=== PATIENT | male | born 1955 | race African-American/Black ===

== ENCOUNTER 2021-12-01 08:20 | Day surgery (SDC) | payer MEDICAID, SELFPAY ==
[2021-12-01] VITALS (10 sets, daily range): BP systolic 63–112; BP diastolic 47–68; PULSE 84–107; RESP 18–22; TEMP 36.3–36.4; O2SAT 94–98; BMI 36.0
[2021-12-01 09:01] LABS: Bedside Glucose 164 mg/dL (74-106)
--- NOTE | 2021-12-01 09:39 | H&P.OPEN ---
HPI - General HPI Narrative TRACI LIMON, is a 66 M who presents for screening colonoscopy. He says his last colonoscopy was about 15 years ago and he does believe that they found polyps. He denies any abdominal pain or blood in the stool. He denies family history of colon cancer. [facility] Medical History Colon polyps Diabetes High cholesterol Hypertension Injury of head and neck Insulin dependent diabetes mellitus Mixed hyperlipidemia Wears glasses Home Medications aspirin 81 mg chewable tablet 81 mg PO DAILY 10/19/21 [History Last Taken 11/28/21] atorvastatin 10 mg tablet 10 mg PO QHS 10/19/21 [History Last Taken Unknown] insulin aspar prt-insulin aspart 100 unit/mL (70-30) subcutaneous soln (Novolog Mix 70-30 U-100 Insuln) 1 sliding scale dose subcut USEASDIRECTD 10/19/21 [History Last Taken Unknown] insulin glargine 100 unit/mL (3 mL) subcutaneous pen (Basaglar KwikPen U-100 Insulin) 66 unit subcut 0800 10/19/21 [History Last Taken 12/01/21] metformin 500 mg tablet 1,000 mg PO BID 10/19/21 [History Last Taken Unknown] ferrous sulfate 325 mg (65 mg iron) tablet 325 mg PO DAILY 11/28/21 [History Last Taken Unknown] lisinopril 20 mg-hydrochlorothiazide 25 mg tablet 1 tab PO DAILY 11/28/21 [History Last Taken 12/01/21] Allergy/AdvReac Type Severity Reaction Status Date / Time No Known Allergies Allergy Verified 12/01/21 08:49 Surgical History Hx of colonoscopy Hx of surgical procedure Hx of tonsillectomy Hx of total knee replacement Social History Smoking Status: Never smoker Past Medical/Surgical History Planned Operation Planned Operative Procedure/s: COLONOSCOPY Previous Hospitalizations/Surgeries HX Hospitalizations: No Any Problems With Anesthesia: No You/Your Family Experience Fever (Hyperthermia) With Anes: No Cholinesterase deficiency: No Cardiovascular Hx Hypertension: Yes (CONTROLLED ON MED) Respiratory Hx Sleep Apnea: No Hx Respiratory Tract Infection/Cold (presently): No Do You Snore Loudly (louder than talking or can be heard): Yes Do You Often Feel Tired/ Fatigued/ Sleepy Dring Daytime?: No Has Anyone Observed You Stop Breathing During Sleep?: No Result (for STOP score): Positive Smoking Status: Never smoker Neurological Does patient have nerve stimulator: No Miscellaneous Recent Exposure to Contagious Disease: No Allergies No Known Allergies Allergy (Verified 12/01/21 08:49) Discharge Is Pt Admitted From a Long Term, or a Retirement: No After D/C, Where Do you Plan to Go: Return Home Vital Signs Vital Signs Vital Signs: 12/01/21 08:50 12/01/21 08:50 Temperature 97.5 F L Temperature Source Temporal Pulse Rate 107 H Respiratory Rate 18 Respiratory Pattern Normal Blood Pressure 112/63 Blood Pressure Mean 79 Blood Pressure Source Monitor Blood Pressure Position Semi-Fowlers Blood Pressure Location Right Arm Pulse Ox 96 Oxygen Delivery Method Room Air Weight Weight: 251 lb 5.231 oz Body Mass Index (BMI) 36.0 Physical Exam Const alert and oriented x3 Resp normal respiratory effort and normal air movement Cardio regular rate and regular rhythm GI soft to palpation, non-tender and non-distended Assessment & Plan Assessment/Plan (1) Encounter for screening for malignant neoplasm of colon: PLAN: Plan I explained endoscopy in detail to the patient. I explained the risks including but not limited to stroke or heart attack with anesthesia, perforation of the GI tract, bleeding, infection. I explained that any of these could necessitate further emergency surgery. The patient understands and all questions were answered sufficiently. The patient wishes to proceed with procedure. Morgan Wolf MD Pager: [facility] [address] [place] [address], [address] [place] [address] Office: Surgery Risks - Colonoscopy Risks Include but are not Limited To: Risks include but are not limited to: Bleeding, perforation requiring further surgery, inability to complete colonoscopy requiring barium enema.
--- NOTE | 2021-12-01 10:05 | OP.COLON_ITS ---
Patient Name: Slyvester Inman Procedure Date: 12/01/2021 9:42 AM Date of : 1955 Age: 66 Procedure: Colonoscopy Indications: Screening for colorectal malignant neoplasm Providers: Morgan Wolf MD Medicines: Monitored Anesthesia Care Patient Profile: This is a 66 year old male. Refer to note in patient chart for documentation of history and physical. Last Colonoscopy: more than 10 years ago. Complications: No immediate complications. Procedure: Pre-Anesthesia Assessment: - Prior to the procedure, a History and Physical was performed, and patient medications and allergies were reviewed. The patient's tolerance of previous anesthesia was also reviewed. The risks and benefits of the procedure and the sedation options and risks were discussed with the patient. All questions were answered, and informed consent was obtained. Prior Anticoagulants: The patient has taken no previous anticoagulant or antiplatelet agents. After reviewing the risks and benefits, the patient was deemed in satisfactory condition to undergo the procedure. After I obtained informed consent, the scope was passed under direct vision. Throughout the procedure, the patient's blood pressure, pulse, and oxygen saturations were monitored continuously. The Colonoscope was introduced through the anus and advanced to the cecum, identified by appendiceal orifice and ileocecal valve. The colonoscopy was performed without difficulty. The patient tolerated the procedure well. The quality of the bowel preparation was good. Scope In: 9:50:59 AM Scope Withdrawal Time 0 hours 6 minutes 4 seconds Scope Out: 10:03:36 AM Total Procedure Duration Time 0 hours 12 minutes 37 seconds Findings: The entire examined colon appeared normal on direct and retroflexion views. Impression: - The entire examined colon is normal on direct and retroflexion views. - No specimens collected. Recommendation: - Discharge patient to home. - Resume previous diet. - Continue present medications. - Repeat colonoscopy in 10 years for screening purposes. Procedure Code(s): --- Professional --- 01441, Colonoscopy, flexible; diagnostic, including collection of specimen(s) by brushing or washing, when performed (separate procedure) Diagnosis Code(s): --- Professional --- Z12.11, Encounter for screening for malignant neoplasm of colon CPT copyright 2017 [employer] [place] [employer]. All rights reserved. The codes documented in this report are preliminary and upon auto machinist review may be revised to meet current compliance requirements. Morgan Wolf MD 12/01/2021 10:05:15 AM This report has been signed electronically. Number of Addenda: 0 Note Initiated On: 12/01/2021 9:42 AM
== END 2021-12-01 11:37 | disposition home or self-care (01) ==
LOC: EN 08:28 → AC 08:30
PROVIDERS: Visit Provider Surgery
PROC: 0DJD8ZZ Inspection of Lower Intestinal Tract, Via Natural or Artificial Opening Endoscopic (ICD-10-PCS; CPT 45378; principal; 2021-12-01 09:25)
DX: Z12.11 Encounter for screening for malignant neoplasm of colon (principal); E11.9 Type 2 diabetes mellitus without complications; I10 Essential (primary) hypertension; E78.2 Mixed hyperlipidemia; Z79.4 Long term (current) use of insulin; Z79.82 Long term (current) use of aspirin; Z79.899 Other long term (current) drug therapy
CPT/HCPCS: 45378; 82962; J7120; J2405

== ENCOUNTER 2023-11-19 10:56 | Emergency (ER) | payer MEDICARE, SELFPAY ==
[2023-11-19 10:57] VITALS: BP 156/83; PULSE 153; RESP 26; TEMP 35.8; O2SAT 98
--- NOTE | 2023-11-19 11:06 | EKG12_ITS ---
Test Reason : RESP ILLNESS Blood Pressure : / mmHG Vent. Rate : 128 BPM Atrial Rate : 128 BPM P-R Int : 152 ms QRS Dur : 072 ms QT Int : 300 ms P-R-T Axes : 065 053 014 degrees QTc Int : 438 ms Sinus tachycardia Nonspecific T wave abnormality Abnormal ECG Confirmed by Mayito Benites ([id number]), script editor SOPHY LEAVITT ([id number]) on 11/20/2023 2:52:39 PM Referred By: Confirmed By:Mayito Benites
--- NOTE | 2023-11-19 11:07 | EX.ED.DYSGE1 ---
HPI History of Present Illness Chief Complaint: General Illness Detail of Chief Complaint: Not feeling well for 4 days Narrative Narrative: Patient presents the emergency department complaint not feeling well for the last 4 days. Patient states that he just got back from [place] 4 days ago. He woke up the next morning with a scratchy throat and a cough. He has had sweats. He has been somewhat lightheaded and dizzy. Cough at times productive of some yellow phlegm. He denies chest pain. Has had some intermittent shortness of breath. Patient is a diabetic but states his blood sugars have been good and his last check was today and it was 117. [facility] Medical History (Updated 11/19/23 @ 12:[address] Matthew German, DO) Wears glasses Diabetes Insulin dependent diabetes mellitus High cholesterol Injury of head and neck Colon polyps Mixed hyperlipidemia Hypertension Home Medications ?Medication ?Instructions ?Recorded ?Last Taken ?Type aspirin 81 mg chewable tablet 81 mg PO DAILY 10/19/21 11/28/21 History atorvastatin 10 mg tablet 10 mg PO QHS 10/19/21 Unknown History insulin aspar prt-insulin aspart 1 sliding scale dose subcut 10/19/21 Unknown History 100 unit/mL (70-30) subcutaneous USEASDIRECTD soln (Novolog Mix 70-30 U-100 Insuln) insulin glargine 100 unit/mL (3 66 unit subcut 0800 10/19/21 12/01/21 History mL) subcutaneous pen (Basaglar KwikPen U-100 Insulin) metformin 500 mg tablet 1,000 mg PO BID 10/19/21 Unknown History ferrous sulfate 325 mg (65 mg 325 mg PO DAILY 11/28/21 Unknown History iron) tablet lisinopril 20 1 tab PO DAILY 11/28/21 12/01/21 History mg-hydrochlorothiazide 25 mg tablet semaglutide 1 mg/dose (4 mg/3 mL) 1 mg subcut QWEEK 11/19/23 Unknown History subcutaneous pen injector (Ozempic) Allergy/AdvReac Type Severity Reaction Status Date / Time No Known Allergies Allergy Verified 12/01/21 08:49 Surgical History Hx of colonoscopy Hx of surgical procedure Hx of total knee replacement Hx of tonsillectomy Social History Smoking Status: Never smoker ROS ROS ED Review of Systems ROS Unobtainable: other Constitutional Constitutional ED: Reports lethargy; Denies chills, fever(s), sweats or weight loss Eyes Eyes: Denies blurry vision, change in vision or diplopia ENT ENT ED: Reports sore throat; Denies rhinorrhea Cardiovascular Cardiovascular: Reports racing heartbeat; Denies chest pain or orthopnea Respiratory/Chest Respiratory/Chest: Reports cough, dyspnea, dyspnea on exertion and sputum; Denies orthopnea Gastrointestinal Gastrointestinal: Denies abdominal pain, diarrhea, nausea or vomiting Genitourinary Genitourinary ED: Denies dysuria, hematuria or urinary frequency Musculoskeletal Musculoskeletal: Denies arthralgias, back pain, myalgias or neck pain Integumentary Denies abscess, Abrasions or rash Neurologic Neurologic: Denies headache(s) or weakness Psychiatric Psychiatric: Denies anxiety, depression or suicidal thoughts Endocrine Endocrinology: Denies polydipsia, polyphagia or polyuria Hematologic/Lymphatic Hematologic/Lymphatic: Denies easy bleeding, easy bruising or lymphadenopathy Allergic/Immunologic Allergic/Immunologic ED: Denies mouth swelling, tongue swelling or urticaria EXAM Physical Exam Const Vital Signs: 11/19/23 10:57 11/19/23 11:42 11/19/23 12:25 Temperature 96.4 F L Temperature Source Temporal Pulse Rate 153 H 130 H Respiratory Rate 26 H 16 Respiratory Effort Normal Non-Labored Respiratory Pattern Normal Normal Blood Pressure 156/83 H Blood Pressure Mean 107 Pulse Ox 98 Oxygen Delivery Method Room Air Positive well nourished and well developed General Appearance ED: well developed and NAD HEENT Reports TM's clear and moist mucous membranes normocephalic and atraumatic; Negative for trauma or tenderness Tympanic Membrane ED: Yes TM's clear Eyes PERRL and EOMs intact bilaterally General Eye ED: Negative for pale conjunctiva or scleral icterus Neck no lymphadenopathy, supple and no JVD General: Negative for tenderness Chest Wall inspection of chest normal and palpation of chest normal Chest: Negative for tenderness Resp normal respiratory effort and clear to auscultation bilaterally Effort and Inspection: Negative for respiratory distress or pain with movement Auscultation: Negative for rhonchi, wheezes or diminished lung sounds Cardio regular rate, regular rhythm, S1 normal heart sound, S2 normal heart sound and no murmurs Peripheral Pulses: pulses 2+ throughout GI normal to inspection, nondistended, normoactive bowel sounds, soft to palpation, non-tender, non-distended and no masses Back/Spine no CVA tenderness and no thoracic nor lumbar tenderness Extremity normal to inspection General Extremety ED: Negative for edema General Extremity: Negative for edema Neuro oriented x3, CN's II-XII intact bilaterally, no sensory deficits noted and gait normal Sensorium / Orientation: awake, alert, oriented to person, oriented to place and oriented to time Motor Exam: strength 5/5 throughout and strength abnormal Psych mental status grossly normal Skin no rashes or lesions noted and no wounds MDM MDM MDM Narrative Medical decision making narrative: Patient presents with cough and not feeling well for about 4 days. Woke up with sore throat initially. Patient just traveled back from [place]. In the differential would be a viral URI versus pneumonia versus PE. CBC with differential count 7.4 with hemoglobin 12.8 and platelet count of 269. Chemistries unremarkable. BUN was 11 and creatinine 1.09. Troponin was normal at 4 and lactate was 2.0. 1 view chest x-ray unremarkable. COVID flu and RSV testing was undertaken and he was positive for COVID-19. D-dimer was normal. We discussed treatment possibly with Paxlovid however he has had symptoms for close to 5 days and clinically looks well. Discussed risk-benefit and we are opting against treatment with Paxlovid at this time. Lab Data Attestation: I reviewed the patient's lab results. Labs: Laboratory Results - last 24 hr 11/19/23 11:25 WBC 7.4 RBC 4.09 L Hgb 12.8 L Hct 37.8 L MCV 92.4 MCH 31.3 MCHC 33.9 RDW Std Deviation 41.9 RDW Coeff of Maria Isabel 12.6 Plt Count 269 MPV 9.4 Immature Gran % (Auto) 0.400 Neut % (Auto) 66.5 Lymph % (Auto) 16.3 L [place] % (Auto) 16.3 H Eos % (Auto) 0.1 Baso % (Auto) 0.4 Absolute Neuts (auto) 4.9 Absolute Lymphs (auto) 1.20 Nucleated RBC % 0 D-Dimer Quant (PE/DVT) < 0.27 L Sodium 135 L Potassium 3.3 L Chloride 104 Carbon Dioxide 23.0 Anion Gap 8 BUN 11 Creatinine 1.09 Est GFR (MDRD) Af Amer 87 Est GFR (MDRD) Non-Af 72 BUN/Creatinine Ratio 10.1 Glucose 116 H Lactic Acid 2.0 Calcium 9.3 Troponin I High Sens 4 Radiography Diagnostic Testing: Clinical Impression(s) from Imaging Studies Chest X-Ray 11/19/23 11:46 IMPRESSION: Normal x-ray examination of the chest. Electronically Signed: Ifeanyi Allan MD at 12:16 EDT , Discharge Plan Triage Chief Complaint: General Illness ED Provider: Matthew German Dx/Rx/DC Orders Clinical Impression: COVID-19 Instructions: Caring for Someone Who Has COVID-19 Prescriptions: No Action atorvastatin 10 mg tablet 10 mg PO QHS metformin 500 mg tablet 1,000 mg PO BID aspirin 81 mg tablet,chewable 81 mg PO DAILY insulin asp prt-insulin aspart [Novolog Mix 70-30 U-100 Insuln] 100 unit/mL (70-30) solution 1 sliding scale dose subcut USEASDIRECTD Basaglar KwikPen U-100 Insulin 100 unit/mL (3 mL) insulin pen 66 unit subcut 0800 ferrous sulfate 325 mg (65 mg iron) tablet 325 mg PO DAILY Patient Comments: PLEASE SEE ATTACHED FOR DETAILED DIRECTIONS lisinopril-hydrochlorothiazide 20-25 mg tablet 1 tab PO DAILY Patient Comments: TAKE 1 TABLET BY MOUTH EVERY DAY Ozempic 1 mg/dose (4 mg/3 mL) pen injector 1 mg subcut QWEEK Primary Care Provider: Care Physician,No Primary Referrals: Morgan Sawyer MD [Med Staff - Customer Development Representative] - 5-7 Days Care Physician,No Primary [Primary Care Provider] - Print Language: [place]i Disposition Disposition: Home, Self Care
--- NOTE | 2023-11-19 11:46 | RAD_ITS ---
STUDY: X-RAY CHEST REASON FOR EXAM: Male, 68 years old. cough, dyspnea TECHNIQUE: Single AP portable view of the chest. COMPARISON: None. FINDINGS: EKG electrodes are seen. The lungs are clear and expanded. There is no demonstrated pleural abnormality. Normal size heart. Normal mediastinum and santi. Normal visualized pulmonary arteries. Normal visualized aortic arch and descending thoracic aorta. There are diffuse degenerative changes of the visualized thoracic spine. Normal visualized ribs, clavicles, and shoulders. There is no demonstrated abnormality of the visualized soft tissue structures of the upper abdomen. RAD/Chest 1 View (Portable) IMPRESSION: Normal x-ray examination of the chest. Electronically Signed: Ifeanyi Allan MD at 12:16 EDT ,
[2023-11-19 11:54] LABS: Absolute Neutrophil Count 4.9 X10^3/uL (2.0-7.7); Basophil# 0.03 X10^3/uL; Basophil% 0.4 % (0-1); Eosinophil# 0.01 X10^3/uL; Eosinophils% 0.1 % (0-5); Hematocrit 37.8 % (40-54); Hemoglobin 12.8 g/dL (13.0-16.5); Lymphocyte % 16.3 % (19-41); Mean Corp Hgb Conc 33.9 g/dL (32-36); Mean Corpuscular Hgb 31.3 pg (27.0-32.0); Mean Corpuscular Volume 92.4 fL (80-94); Mean Platelet Vol. 9.4 fl (6.2-12.0); Monocyte% 16.3 % (0-10); NRBC Flagged by Analyzer 0 % (0-5); Neutrophil # 4.88 X10^3/uL (2.7-7.7); Neutrophil % 66.5 % (47-70); Platelet Count 269 K/mm3 (150-450); RBC Distribution Width CV 12.6 % (11.6-14.6); RBC Distribution Width SD 41.9 fl (35.1-43.9); Red Blood Count 4.09 M/mm3 (4.6-6.2); White Blood Count 7.4 K/mm3 (4.4-11.0)
[2023-11-19 12:12] LABS: Anion Gap 8 (5-15); BUN 11 mg/dL (7-18); BUN/Creat Ratio 10.1 RATIO (10-20); Calcium,Total 9.3 mg/dL (8.5-10.1); Chloride 104 mmol/L (98-107); Creatinine, Serum 1.09 mg/dL (0.70-1.30); EST Glomerular Filtration Rate 72 mL/min (>60); Est Glom Filt Rate - Afr Amer 87 mL/min (>60); Glucose 116 mg/dL (74-106); Potassium 3.3 mmol/L (3.5-5.1); Sodium Level 135 mmol/L (136-145); Troponin-I HS 4 pg/mL (3.0-78.0)
[2023-11-19] MEDS: 0.9% Normal Saline (1000mL) 1,000 ML 150 ML IV (12:17)
[2023-11-19] MEDS: Ipratropium/Albuterol Sulfate 3 ML AMPUL.NEB INHALATION (12:22)
[2023-11-19 12:25] VITALS: PULSE 130; RESP 16
[2023-11-19 12:39] LABS: D-Dimer Quantitative (DVT/PE) < 0.27 FEU/ug/m (0.27-0.49)
[2023-11-19 12:56] VITALS: BP 137/72; PULSE 122; RESP 19; O2SAT 91
[2023-11-19 12:57] VITALS: BP 133/84; PULSE 123; RESP 19; TEMP 36.8; O2SAT 91
[2023-11-19 16:00] LABS: Reflex Lactate? Y
== END 2023-11-19 13:06 | disposition home or self-care (01) ==
PROVIDERS: Emergency Provider Emergency Medicine; Visit Provider Emergency Medicine
DX: U07.1 COVID-19 (principal); Z79.4 Long term (current) use of insulin; E11.9 Type 2 diabetes mellitus without complications
CPT/HCPCS: 71045; 80048; 83605; 84484; 85025; 85379; 87040; 87631; 93005; 94640; 94664; 96360; 99283; J7030; A4216

== ENCOUNTER 2024-02-12 16:19 | Emergency (ER) | payer MEDICARE, SELFPAY ==
[2024-02-12 16:20] VITALS: BP 117/93; PULSE 106; RESP 20; TEMP 36; O2SAT 96; BMI 35.8
[2024-02-12 16:22] VITALS: BP 162/98; PULSE 78; RESP 16; TEMP 36.8; O2SAT 98
[2024-02-12 17:22] VITALS: BP 161/92; PULSE 78; RESP 16; TEMP 36.8; O2SAT 98
--- NOTE | 2024-02-12 17:24 | EX.ED.GUMALE ---
HPI History of Present Illness Chief Complaint: Male Pain/Injury Informant: patient Pain Onset: Days (3) Context: Gradual Onset Timing: Continuous Worsened by: Palpation Relieved by: Nothing Narrative Narrative: Patient presents with pain and swelling to his glans penis that has been getting worse over the last 3 days. Patient states it is gradually getting worse. Patient describes his pain as sharp. Patient states he had noted some white discharge and drainage over the glans penis. Patient denies any difficulty retracting his foreskin or reducing his foreskin. However, patient states that due to the swelling of his glans penis his foreskin does not completely cover his glans penis. Patient admits to some dysuria but denies any hematuria or frequency. Patient denies any fevers or chills. Patient is diabetic. Prior similar symptoms: No PFSH PFSH Medical History Wears glasses Diabetes Insulin dependent diabetes mellitus High cholesterol Injury of head and neck Colon polyps Mixed hyperlipidemia Hypertension Home Medications ?Medication ?Instructions ?Recorded ?Last Taken ?Type aspirin 81 mg chewable tablet 81 mg PO DAILY 10/19/21 11/28/21 History atorvastatin 10 mg tablet 10 mg PO QHS 10/19/21 Unknown History insulin aspar prt-insulin aspart 1 sliding scale dose subcut 10/19/21 Unknown History 100 unit/mL (70-30) subcutaneous USEASDIRECTD soln (Novolog Mix 70-30 U-100 Insuln) insulin glargine 100 unit/mL (3 66 unit subcut 0800 10/19/21 12/01/21 History mL) subcutaneous pen (Basaglar KwikPen U-100 Insulin) metformin 500 mg tablet 1,000 mg PO BID 10/19/21 Unknown History ferrous sulfate 325 mg (65 mg 325 mg PO DAILY 11/28/21 Unknown History iron) tablet lisinopril 20 1 tab PO DAILY 11/28/21 12/01/21 History mg-hydrochlorothiazide 25 mg tablet semaglutide 1 mg/dose (4 mg/3 mL) 1 mg subcut QWEEK 11/19/23 Unknown History subcutaneous pen injector (Ozempic) clotrimazole 1 % topical cream 1 applic topical BID #15 grams 02/12/24 Unknown Rx Allergy/AdvReac Type Severity Reaction Status Date / Time No Known Allergies Allergy Verified 12/01/21 08:49 Surgical History Hx of colonoscopy Hx of surgical procedure Hx of total knee replacement Hx of tonsillectomy Social History Smoking Status: Never smoker ROS ROS ED Constitutional Constitutional ED: Denies chills or fever(s) Eyes Eyes: Denies blurry vision or change in vision ENT ENT ED: Denies rhinorrhea or sore throat Cardiovascular Cardiovascular: Denies chest pain or palpitations Respiratory/Chest Respiratory/Chest: Denies cough or dyspnea Gastrointestinal Gastrointestinal: Denies nausea or vomiting Genitourinary Genitourinary ED: Reports dysuria; Denies hematuria Musculoskeletal Musculoskeletal: Denies back pain or neck pain Integumentary Denies abscess or rash Neurologic Neurologic: Denies headache(s) or weakness Allergic/Immunologic Allergic/Immunologic ED: Denies mouth swelling or urticaria EXAM Physical Exam Const Vital Signs: 02/12/24 16:20 02/12/24 16:22 02/12/24 17:22 Temperature 96.8 F L 98.3 F 98.3 F Temperature Source Temporal Oral Oral Pulse Rate 106 H 78 78 Respiratory Rate 20 H 16 16 Blood Pressure 117/93 H 162/98 H 161/92 H Blood Pressure Mean 101 119 115 Pulse Ox 96 98 98 Oxygen Delivery Method Room Air Room Air Room Air 02/12/24 18:20 Temperature Temperature Source Pulse Rate 91 Respiratory Rate 16 Blood Pressure 140/83 H Blood Pressure Mean 102 Pulse Ox 97 Oxygen Delivery Method Room Air Positive well nourished and well developed General Appearance ED: well developed and NAD HEENT Reports moist mucous membranes Neck supple and no JVD Resp normal respiratory effort and clear to auscultation bilaterally Cardio regular rate and regular rhythm GI non-tender and non-distended Palpation: soft Narrative: There is edema and white drainage over the glans penis. There is a paraphimosis noted. There is mild tenderness to palpation. There are no ulcerations noted. There is no urethral discharge noted. Extremity normal to inspection Neuro oriented x3, CN's II-XII intact bilaterally, moves all extremities, no focal motor deficits and no sensory deficits noted Sensorium / Orientation: alert Motor Exam: strength 5/5 throughout Psych mental status grossly normal MDM MDM MDM Narrative Medical decision making narrative: Differential diagnosis includes balanitis, balanoposthitis, paraphimosis, and urinary tract infection. Urinalysis will be obtained to assess for urinary tract infection. Lab Data Attestation: I reviewed the patient's lab results. Lab results narrative: Urinalysis was reviewed. Leukocyte esterase was 500. There were 5-10 white blood cells and 2+ bacteria. Occult blood was 150 with 5-10 red blood cells. Labs: Laboratory Results - last 24 hr 02/12/24 17:17 Urine Color Yellow Urine Clarity Clear Urine pH 5.0 Ur Specific [place] 1.025 Urine Protein 30 H Urine Glucose (UA) 50 H Urine Ketones Negative Urine Occult Blood 150 H Urine Nitrite Negative Urine Bilirubin Negative Urine Urobilinogen 1 H Ur Leukocyte Esterase 500 H Urine RBC 5-10 SEEN Urine WBC 5-10 SEEN Ur Squamous Epith Cells 0-5 SEEN Calcium Oxalate Crystal RARE Urine Bacteria 2+ Hyaline Casts 0-5 SEEN Urine Mucus 1+ Treatment and Re-Evaluation Narrative: The paraphimosis was able to be reduced. Patient was advised that this is most likely a fungal infection of his glans penis. Patient was given prescription for clotrimazole cream. Patient was instructed to apply this twice daily. Patient was instructed to keep the glans clean. Patient was given a referral for urology. Patient understood and was agreeable with the plan. All questions were answered. Discharge Plan Triage Chief Complaint: Male Pain/Injury ED Provider: Morgan Pérez Dx/Rx/DC Orders Clinical Impression: Balanoposthitis, Paraphimosis, Diabetes mellitus Instructions: ED Balanoposthitis Prescriptions: New clotrimazole 1 % cream 1 applic topical BID Qty: 15 0RF No Action atorvastatin 10 mg tablet 10 mg PO QHS metformin 500 mg tablet 1,000 mg PO BID aspirin 81 mg tablet,chewable 81 mg PO DAILY insulin asp prt-insulin aspart [Novolog Mix 70-30 U-100 Insuln] 100 unit/mL (70-30) solution 1 sliding scale dose subcut USEASDIRECTD Basaglar KwikPen U-100 Insulin 100 unit/mL (3 mL) insulin pen 66 unit subcut 0800 ferrous sulfate 325 mg (65 mg iron) tablet 325 mg PO DAILY Patient Comments: PLEASE SEE ATTACHED FOR DETAILED DIRECTIONS lisinopril-hydrochlorothiazide 20-25 mg tablet 1 tab PO DAILY Patient Comments: TAKE 1 TABLET BY MOUTH EVERY DAY Ozempic 1 mg/dose (4 mg/3 mL) pen injector 1 mg subcut QWEEK Primary Care Provider: Care Physician,No Primary Referrals: David Braun MD [Med Staff - Active Staff] - 3-5 Days Care Physician,No Primary [Primary Care Provider] - Print Language: Luxembourgish Disposition Disposition: Home, Self Care
[2024-02-12 17:56] LABS: Color, Urine Yellow (Yellow); Glucose, Dipstick 50 mg/dl (Normal); Ketone-Dipstick Negative (Negative); Leukocyte Esterase-Dipstick 500 /ul (Negative); Nitrite-Dipstick Negative (Negative); Occult Blood-Urine 150 /ul (Negative); Protein-Dipstick 30 mg/dl (Negative); Specific Gravity, Urine 1.025 (1.002-1.030); Urine Bilirubin Dipstick Negative (Negative); Urine Clarity Clear (Clear); Urine Urobilinogen 1 mg/dl (Normal)
[2024-02-12 18:20] VITALS: BP 140/83; PULSE 91; RESP 16; O2SAT 97
[2024-02-12 18:29] LABS: Hyaline Cast 0-5 SEEN /lpf (0-5); Squamous Epithelial Cells - UA 0-5 SEEN /hpf (0-5); White Blood Cells 5-10 SEEN /hpf (0-5)
[2024-02-12 18:30] LABS: Red Blood Cells-Urine 5-10 SEEN /hpf (0-5)
[2024-02-12 18:31] LABS: Bacteria 2+ /hpf (None Seen); Calcium Oxalate Crystals Ur RARE /hpf (<or=2+); Mucous, Urine 1+ /hpf (<or=2+)
[2024-02-12 19:47] VITALS: BP 140/79; PULSE 78; RESP 16; TEMP 36.1; O2SAT 99
== END 2024-02-12 19:54 | disposition home or self-care (01) ==
PROVIDERS: Emergency Provider Emergency Medicine; Visit Provider Emergency Medicine
DX: N47.6 Balanoposthitis (principal); E11.9 Type 2 diabetes mellitus without complications; Z79.4 Long term (current) use of insulin; N47.2 Paraphimosis; Z79.84 Long term (current) use of oral hypoglycemic drugs; E78.00 Pure hypercholesterolemia, unspecified; I10 Essential (primary) hypertension; Z79.82 Long term (current) use of aspirin; Z79.899 Other long term (current) drug therapy; Z79.85 Long-term (current) use of injectable non-insulin antidiabetic drugs
CPT/HCPCS: 81001; 87077; 87086; 87088; 87186; 99282

== ENCOUNTER 2024-09-18 21:03 | Emergency (ER) | payer MEDICARE, SELFPAY ==
[2024-09-18] VITALS (8 sets, daily range): BP systolic 122–141; BP diastolic 70–90; PULSE 92–101; RESP 16–20; TEMP 36.6–36.8; O2SAT 96–98; BMI 35.0
[2024-09-18] MEDS: 0.9% Normal Saline (1000mL) 1,000 ML 999 ML IV (21:44)
[2024-09-18 21:50] LABS: Bacteria 0 SEEN /hpf (None Seen); Mucous, Urine 0 SEEN /hpf (<or=2+)
[2024-09-18 21:54] LABS: Absolute Lymphocyte Count 4.25 X10^3/uL (0.83-4.51); Basophil# 0.05 X10^3/uL; Basophil% 0.6 % (0-1); Eosinophil# 0.06 X10^3/uL; Eosinophils% 0.7 % (0-5); Hematocrit 37.9 % (40-54); Hemoglobin 13.4 g/dL (13.0-16.5); Lymphocyte # 4.25 X10^3/ul (0.83-4.51); Lymphocyte % 51.9 % (19-41); Mean Corp Hgb Conc 35.4 g/dL (32-36); Mean Corpuscular Hgb 31.8 pg (27.0-32.0); Mean Corpuscular Volume 89.8 fL (80-94); Mean Platelet Vol. 9.6 fl (6.2-12.0); Monocyte# 0.77 X10^3/uL; Monocyte% 9.4 % (0-10); NRBC Flagged by Analyzer 0 % (0-5); Neutrophil # 3.02 X10^3/uL (2.7-7.7); Neutrophil % 36.9 % (47-70); Platelet Count 287 K/mm3 (150-450); RBC Distribution Width CV 12.7 % (11.6-14.6); RBC Distribution Width SD 41.7 fl (35.1-43.9); Red Blood Count 4.22 M/mm3 (4.6-6.2); White Blood Count 8.2 K/mm3 (4.4-11.0)
[2024-09-18 21:57] LABS: Color, Urine Yellow (Yellow); Glucose, Dipstick 1000 mg/dl (Normal); Ketone-Dipstick 5 mg/dl (Negative); Leukocyte Esterase-Dipstick 25 /ul (Negative); Nitrite-Dipstick Negative (Negative); Occult Blood-Urine 10 /ul (Negative); Protein-Dipstick 100 mg/dl (Negative); Urine Bilirubin Dipstick Negative (Negative); Urine Clarity Sl. Cloudy (Clear); Urine Urobilinogen Normal (Normal)
--- NOTE | 2024-09-18 22:06 | EX.ED.DYSGE1 ---
HPI History of Present Illness Chief Complaint: General Illness Informant: patient and EMS Narrative Narrative: 69-year-old male diabetic states he has been having sore cramping in his muscles all over his body and his back over the past hour. Presents by EMS. He states although he is a diabetic, he has not been checking his sugars in the past couple months because his meter broke and he has not had a wireless sensor until today. He put the wireless sensor on and noticed that his blood sugar was reading high. Therefore he states he took a dose of corrective insulin, little later his blood sugar came down to the 385 range and then later the 240 range and he thought he was doing better until he started cramping all over. He states the cramping is not so bad right now. Denies any abdominal discomfort vomiting diarrhea cough, dyspnea, chest pain, recent illness otherwise. He states he has had polyuria polydipsia for the past 3 days or so. [facility] Medical History Wears glasses Diabetes Insulin dependent diabetes mellitus High cholesterol Injury of head and neck Colon polyps Mixed hyperlipidemia Hypertension Home Medications ?Medication ?Instructions ?Recorded ?Last Taken ?Type aspirin 81 mg chewable tablet 81 mg PO DAILY 10/19/21 11/28/21 History atorvastatin 10 mg tablet 10 mg PO QHS 10/19/21 Unknown History insulin aspar prt-insulin aspart 1 sliding scale dose subcut 10/19/21 Unknown History 100 unit/mL (70-30) subcutaneous USEASDIRECTD soln (Novolog Mix 70-30 U-100 Insuln) insulin glargine 100 unit/mL (3 66 unit subcut 0800 10/19/21 12/01/21 History mL) subcutaneous pen (Basaglar KwikPen U-100 Insulin) metformin 500 mg tablet 1,000 mg PO BID 10/19/21 Unknown History ferrous sulfate 325 mg (65 mg 325 mg PO DAILY 11/28/21 Unknown History iron) tablet lisinopril 20 1 tab PO DAILY 11/28/21 12/01/21 History mg-hydrochlorothiazide 25 mg tablet semaglutide 1 mg/dose (4 mg/3 mL) 1 mg subcut QWEEK 11/19/23 Unknown History subcutaneous pen injector (Ozempic) clotrimazole 1 % topical cream 1 applic topical BID #15 grams 02/12/24 Unknown Rx Allergy/AdvReac Type Severity Reaction Status Date / Time No Known Allergies Allergy Verified 09/18/24 21:12 Surgical History Hx of colonoscopy Hx of surgical procedure Hx of total knee replacement Hx of tonsillectomy Social History Smoking Status: Never smoker ROS ROS ED Constitutional Constitutional ED: Denies chills or fever(s) Eyes Eyes: Denies change in vision or diplopia ENT ENT ED: Denies rhinorrhea or sore throat Cardiovascular Cardiovascular: Denies chest pain or palpitations Respiratory/Chest Respiratory/Chest: Denies cough or dyspnea Gastrointestinal Gastrointestinal: Denies abdominal pain, diarrhea, nausea or vomiting Genitourinary Genitourinary ED: Reports urinary frequency; Denies dysuria or hematuria Musculoskeletal Musculoskeletal: Reports myalgias; Denies back pain or neck pain Integumentary Denies abscess or rash Neurologic Neurologic: Denies headache(s), paresthesias or weakness Psychiatric Psychiatric: Denies suicidal thoughts Endocrine Endocrinology: Reports polydipsia and polyuria EXAM Physical Exam Const Vital Signs: 09/18/24 21:05 09/18/24 21:48 09/18/24 22:00 Temperature 98.3 F Temperature Source Oral Pulse Rate 101 H 100 95 Respiratory Rate 18 20 H 16 Blood Pressure 122/79 H 131/90 H Blood Pressure Mean 93 102 Pulse Ox 98 Oxygen Delivery Method Room Air 09/18/24 22:15 09/18/24 22:30 09/18/24 22:45 Temperature Temperature Source Pulse Rate 92 92 94 Respiratory Rate 20 H 18 17 Blood Pressure 128/81 H 134/70 H 141/85 H Blood Pressure Mean 93 87 99 Pulse Ox Oxygen Delivery Method 09/18/24 23:00 Temperature Temperature Source Pulse Rate 95 Respiratory Rate 19 H Blood Pressure 133/77 H Blood Pressure Mean 93 Pulse Ox Oxygen Delivery Method Positive well nourished and well developed General Appearance ED: well developed and NAD HEENT Reports moist mucous membranes normocephalic and atraumatic Eyes PERRL and EOMs intact bilaterally Neck full ROM and supple Resp normal respiratory effort and clear to auscultation bilaterally Cardio regular rate, regular rhythm and no murmurs GI non-tender and non-distended Auscultation: normoactive bowel sounds Palpation: soft Back/Spine no CVA tenderness General Back: other FROM Extremity normal to inspection Extremity Narrative: Full range of motion throughout all 4 extremities, compartment soft nondistended. General Extremety ED: Negative for edema, pulses abnormal or tenderness General Extremity: Negative for edema or pulses abnormal Neuro oriented x3, CN's II-XII intact bilaterally and no sensory deficits noted Sensorium / Orientation: awake and alert Motor Exam: strength 5/5 throughout Skin no rashes or lesions noted and no wounds MDM MDM MDM Narrative Medical decision making narrative: Patient appears well and his vital signs are unremarkable. I ran some basic labs looking for metabolic disturbances, and gave him a liter of IV fluids, ordered a urinalysis as well. Urinalysis shows glycosuria but no infection, there is some protein but his creatinine is good, his glucose is stable around 200, his bicarb is low but the rest of his blood work is unremarkable. He was given a liter of IV fluids and feels much better afterwards with no more cramping. He was able to get up and walk without any difficulty. There is a trace of blood in his urinalysis, but if he had rhabdomyolysis I would suspect this would be much higher so I do not think we need to evaluate him further for that, could have been some mild dehydration due to his hyperglycemia-mediated diuresis. Stable for discharge home close outpatient follow-up if his symptoms persist he is comfortable with that plan. Lab Data Attestation: I reviewed the patient's lab results. Labs: Laboratory Results - last 24 hr 09/18/24 09/18/24 21:40 21:51 WBC 8.2 RBC 4.22 L Hgb 13.4 Hct 37.9 L MCV 89.8 MCH 31.8 MCHC 35.4 RDW Std Deviation 41.7 RDW Coeff of Maria Isabel 12.7 Plt Count 287 MPV 9.6 Immature Gran % (Auto) 0.500 Neut % (Auto) 36.9 L Lymph % (Auto) 51.9 H [place] % (Auto) 9.4 Eos % (Auto) 0.7 Baso % (Auto) 0.6 Absolute Neuts (auto) 3.0 Absolute Lymphs (auto) 4.25 Nucleated RBC % 0 Sodium 134 Potassium 3.3 Chloride 98 Carbon Dioxide 19.6 L Anion Gap 16 H BUN 13 Creatinine 0.93 Estim Creat Clear Calc 96.03 Est GFR (MDRD) Non-Af 90 BUN/Creatinine Ratio 14.1 Glucose 211 H Calcium 9.7 Urine Color Yellow Urine Clarity Sl. Cloudy Urine pH 5.0 Ur Specific [place] 1.020 Urine Protein 100 H Urine Glucose (UA) 1000 H Urine Ketones 5 H Urine Occult Blood 10 H Urine Nitrite Negative Urine Bilirubin Negative Urine Urobilinogen Normal Ur Leukocyte Esterase 25 H Urine RBC 0-5 SEEN Urine WBC 0-5 SEEN Ur Squamous Epith Cells 0-5 SEEN Urine Bacteria 0 SEEN Urine Mucus 0 SEEN POC Glucose 206 H Discharge Plan Triage Chief Complaint: General Illness ED Provider: Chaitanya Tang Dx/Rx/DC Orders Clinical Impression: Hyperglycemia due to type 2 diabetes mellitus, Muscle cramping, Mild dehydration Instructions: ED Diabetic Hyperglycemia, ED Muscle Spasm Prescriptions: No Action atorvastatin 10 mg tablet 10 mg PO QHS metformin 500 mg tablet 1,000 mg PO BID aspirin 81 mg tablet,chewable 81 mg PO DAILY insulin asp prt-insulin aspart [Novolog Mix 70-30 U-100 Insuln] 100 unit/mL (70-30) solution 1 sliding scale dose subcut USEASDIRECTD Basaglar KwikPen U-100 Insulin 100 unit/mL (3 mL) insulin pen 66 unit subcut 0800 ferrous sulfate 325 mg (65 mg iron) tablet 325 mg PO DAILY Patient Comments: PLEASE SEE ATTACHED FOR DETAILED DIRECTIONS lisinopril-hydrochlorothiazide 20-25 mg tablet 1 tab PO DAILY Patient Comments: TAKE 1 TABLET BY MOUTH EVERY DAY Ozempic 1 mg/dose (4 mg/3 mL) pen injector 1 mg subcut QWEEK clotrimazole 1 % cream 1 applic topical BID Qty: 15 0RF Primary Care Provider: Care Physician,No Primary Referrals: Doctor,Your [Non-Staff] - 3-5 Days if not improving Print Language: Congolese Disposition Disposition: Home, Self Care
[2024-09-18 22:09] LABS: Anion Gap 16 (5-15); BUN 13 mg/dL (4-19); BUN/Creat Ratio 14.1 RATIO (10-20); Calcium,Total 9.7 mg/dL (7.6-11.0); Carbon Dioxide 19.6 mmol/L (21.0-32.0); Chloride 98 mmol/L (98-108); Creatinine, Serum 0.93 mg/dL (0.70-1.20); EST Glomerular Filtration Rate 90 (>60); Estimated Creatinine Clearance 96.03 ml/min (50-250); Glucose 211 mg/dL (70-99); Potassium 3.3 mmol/L (3.3-5.1); Sodium Level 134 mmol/L (133-145)
[2024-09-18 22:09] LABS: Bedside Glucose 206 mg/dL (74-106)
[2024-09-18 22:18] LABS: Red Blood Cells-Urine 0-5 SEEN /hpf (0-5); Squamous Epithelial Cells - UA 0-5 SEEN /hpf (0-5); White Blood Cells 0-5 SEEN /hpf (0-5)
== END 2024-09-18 23:36 | disposition home or self-care (01) ==
PROVIDERS: Emergency Provider Emergency Medicine; Visit Provider Emergency Medicine
DX: R25.2 Cramp and spasm (principal); E11.65 Type 2 diabetes mellitus with hyperglycemia; Z79.4 Long term (current) use of insulin; E86.0 Dehydration; I10 Essential (primary) hypertension; E78.2 Mixed hyperlipidemia; Z79.84 Long term (current) use of oral hypoglycemic drugs; Z79.85 Long-term (current) use of injectable non-insulin antidiabetic drugs; Z79.899 Other long term (current) drug therapy
CPT/HCPCS: 80048; 81001; 82962; 85025; 96360; 99283; A4216

== ENCOUNTER 2025-02-15 09:19 | Emergency (ER) | payer OTHER, SELFPAY ==
[2025-02-15 09:19] VITALS: BP 131/75; PULSE 75; RESP 18; TEMP 36.7; O2SAT 100; BMI 35.6
--- NOTE | 2025-02-15 09:27 | ED.VIS.DYS ---
HPI History of Present Illness Chief Complaint: Shortness of Breath Informant: patient Onset/Context/Timing Onset: Days Context: gradual Timing: Continuous Quality: Positive for Wheezing Worsened by: Nothing Relieved by: Nothing Associated Symptoms cough, rhinorrhea, fever, subjective, white sputum and yellow sputum; Negative for post nasal drip, ear pain, sore throat, chills, clear sputum or green sputum Narrative Narrative: Patient presents with shortness of breath and cough that has been getting worse over the past few days. Patient states it came on gradually. Patient states he hears himself wheezing at times. Patient states he is coughing up some yellow and white sputum. Patient is due to subjective fever but did not take his temperature. Patient admits to some rhinorrhea. Patient denies any chest pain. Patient denies any nausea or vomiting. Patient states nothing makes his symptoms better and nothing makes them worse. [facility] Medical History Wears glasses Diabetes Insulin dependent diabetes mellitus High cholesterol Injury of head and neck Colon polyps Mixed hyperlipidemia Hypertension Home Medications ?Medication ?Instructions ?Recorded ?Last Taken ?Type aspirin 81 mg chewable tablet 81 mg PO DAILY 10/19/21 02/14/25 History insulin aspar prt-insulin aspart 1 sliding scale dose subcut 10/19/21 02/14/25 History 100 unit/mL (70-30) subcutaneous USEASDIRECTD soln (Novolog Mix 70-30 U-100 Insuln) insulin glargine 100 unit/mL (3 32 unit subcut BID 10/19/21 02/14/25 History mL) subcutaneous pen (Basaglar KwikPen U-100 Insulin) lisinopril 20 1 tab PO DAILY 11/28/21 02/14/25 History mg-hydrochlorothiazide 25 mg tablet amlodipine 5 mg tablet 5 mg PO DAILY 02/15/25 02/14/25 History atorvastatin 20 mg tablet 20 mg PO DAILY 02/15/25 02/14/25 History metformin 1,000 mg tablet 1,000 mg PO BID 02/15/25 02/14/25 History Allergy/AdvReac Type Severity Reaction Status Date / Time No Known Allergies Allergy Verified 02/15/25 09:19 Surgical History Hx of colonoscopy Hx of surgical procedure Hx of total knee replacement Hx of tonsillectomy Social History Smoking Status: Never smoker ROS ROS ED Constitutional Constitutional ED: Reports fever(s); Denies chills Eyes Eyes: Denies blurry vision or change in vision ENT ENT ED: Reports rhinorrhea; Denies sore throat Cardiovascular Cardiovascular: Denies chest pain or palpitations Respiratory/Chest Respiratory/Chest: Denies cough or dyspnea Gastrointestinal Gastrointestinal: Denies nausea or vomiting Genitourinary Genitourinary ED: Denies dysuria or hematuria Musculoskeletal Musculoskeletal: Denies back pain or neck pain Integumentary Denies abscess or rash Neurologic Neurologic: Reports headache(s); Denies weakness Allergic/Immunologic Allergic/Immunologic ED: Denies mouth swelling or urticaria EXAM Physical Exam Const Vital Signs: 02/15/25 09:19 02/15/25 10:07 02/15/25 10:27 Temperature 98.1 F Temperature Source Temporal Pulse Rate 75 75 Respiratory Rate 18 16 Respiratory Pattern Normal Blood Pressure 131/75 H Blood Pressure Mean 93 Pulse Ox 100 97 Oxygen Delivery Method Room Air Room Air 02/15/25 11:20 Temperature Temperature Source Pulse Rate 74 Respiratory Rate 18 Respiratory Pattern Blood Pressure 127/88 H Blood Pressure Mean 101 Pulse Ox 100 Oxygen Delivery Method Room Air Positive well nourished and well developed General Appearance ED: well developed and NAD HEENT Reports moist mucous membranes atraumatic Neck supple, no meningeal signs and no JVD Resp normal respiratory effort and clear to auscultation bilaterally Cardio regular rate and regular rhythm GI non-tender and non-distended Palpation: soft Neuro oriented x3, CN's II-XII intact bilaterally and no sensory deficits noted [place] Coma Scale: document GCS findings Spontaneous Obeys Commands Oriented 15 Sensorium / Orientation: alert Speech: speech normal Motor Exam: strength 5/5 throughout Psych mental status grossly normal MDM MDM MDM Narrative Medical decision making narrative: Differential diagnosis includes pneumonia, bronchitis, viral upper respiratory infection, and reactive airway disease. Chest x-ray will be obtained to assess for pneumonia or bronchitis. COVID-19, influenza, and RSV will be obtained to assess for viral infection. EKG will be obtained to assess for cardiac dysrhythmia or cardiac ischemia. CBC will be obtained to assess for leukocytosis and anemia. Basic metabolic profile will be obtained to assess for electrolyte abnormality and renal function. History & Record Review Additional record(s) reviewed:: Prior outpatient record, Prior ED visit and Prior labs Lab Data Attestation: I reviewed the patient's lab results. Lab results narrative: CBC was reviewed and showed a mild anemia with a hemoglobin of 12.6 hematocrit 36.3. White blood cell count was slightly low at 4.2. Platelets were normal. Basic metabolic profile was reviewed. Glucose was mildly elevated at 176. The remainder is within normal limits. COVID-19 PCR was reviewed and was negative. Influenza PCR was reviewed and was negative for influenza A and influenza B. RSV PCR was reviewed and was negative. Labs: Laboratory Results - last 24 hr 02/15/25 10:21 WBC 4.2 L RBC 3.94 L Hgb 12.6 L Hct 36.3 L MCV 92.1 MCH 32.0 MCHC 34.7 RDW Std Deviation 41.3 RDW Coeff of Maria Isabel 12.4 Plt Count 271 MPV 9.2 Immature Gran % (Auto) 0.200 Neut % (Auto) 41.0 L Lymph % (Auto) 43.6 H [place] % (Auto) 13.1 H Eos % (Auto) 1.4 Baso % (Auto) 0.7 Absolute Neuts (auto) 1.7 L Absolute Lymphs (auto) 1.83 Nucleated RBC % 0 Sodium 134 Potassium 4.0 Chloride 100 Carbon Dioxide 21.7 Anion Gap 12 BUN 11 Creatinine 0.74 Estim Creat Clear Calc 112.54 Est GFR (MDRD) Non-Af 99 BUN/Creatinine Ratio 14.8 Glucose 176 H Calcium 9.2 Radiography Chest X-Ray - ED: 2 View, Read by ED Physician, Read by Radiologist and No Acute Disease Diagnostic Testing: Clinical Impression(s) from Imaging Studies Chest X-Ray 02/15/25 09:49 IMPRESSION: No acute abnormality Reading Location: [id number] and lateral chest x-ray was obtained. There are 2 views. On my independent interpretation, lung bush are clear. There is normal cardiac silhouette. Bony thorax is normal. There is no acute process noted. Radiologist also interpreted the x-ray and agrees. Treatment and Re-Evaluation :: Patient was given a DuoNeb aerosol. Patient was feeling better on reevaluation. Patient was advised of his findings. Patient was advised he most likely has a viral upper respiratory infection. Patient was instructed to drink plenty of fluids. Patient was instructed to take Tylenol or ibuprofen as needed for pain. Patient was instructed to follow-up with his primary care physician in 5 to 7 days. Patient was instructed to return if worse in any way. Patient understood and was agreeable with the plan. All questions were answered. Discharge Plan Triage Chief Complaint: Shortness of Breath ED Provider: Morgan Pérez Dx/Rx/DC Orders Clinical Impression: Upper respiratory infection, Diabetes mellitus Instructions: ED URI, Viral, No Abx (Adult) Prescriptions: No Action aspirin 81 mg tablet,chewable 81 mg PO DAILY insulin asp prt-insulin aspart [Novolog Mix 70-30 U-100 Insuln] 100 unit/mL (70-30) solution 1 sliding scale dose subcut USEASDIRECTD insulin glargine [Basaglar KwikPen U-100 Insulin] 100 unit/mL (3 mL) insulin pen 32 unit subcut BID lisinopril-hydrochlorothiazide 20-25 mg tablet 1 tab PO DAILY Patient Comments: TAKE 1 TABLET BY MOUTH EVERY DAY atorvastatin 20 mg tablet 20 mg PO DAILY amlodipine 5 mg tablet 5 mg PO DAILY metformin 1,000 mg tablet 1,000 mg PO BID [facility] Referrals: NOT,DEFINED [Non-Staff] - [facility]Primary [facility] Provider[facility] - 5-7 Days Print Language: Greenlandic Disposition Disposition: Home, Self Care
--- NOTE | 2025-02-15 09:49 | EKG12_ITS ---
Test Reason : SOB Blood Pressure : */* mmHG Vent. Rate : 77 BPM Atrial Rate : 77 BPM P-R Int : 188 ms QRS Dur : 82 ms QT Int : 386 ms P-R-T Axes : 62 38 46 degrees QTcB Int : 436 ms Normal sinus rhythm Normal ECG When compared with ECG of 19-Nov-2023 11:36, Vent. rate has decreased by 51 bpm Nonspecific T wave abnormality no longer evident in Inferior leads Nonspecific T wave abnormality no longer evident in Lateral leads Confirmed by Mayito Benites ([id number]), school photograph editor SOPHY LEAVITT ([id number]) on 02/17/2025 6:32:47 AM Referred By: Confirmed By: Mayito Benites
--- NOTE | 2025-02-15 09:49 | RAD_ITS ---
PROCEDURE: CHEST PA AND LATERAL 02/15/2025 REASON FOR EXAM: COUGH TECHNIQUE: Procedure Code: RADCXR Modality: DX Procedure: CHEST PA AND LATERAL COMPARISON: November 19, 2023 FINDINGS: Hardware: EKG leads are present Heart: Normal Mediastinum: Normal Lungs: Clear Bones: Bridging osteophytes mid to lower thoracic spine. Consider diffuse idiopathic skeletal hyperostosis, DISH. RAD/Chest PA and Lateral IMPRESSION: No acute abnormality Reading Location: [id number]
--- OUTSIDE RECORDS SUMMARY | 2025-02-15 10:04 | XMS RPT_ITS | CCD ---
Author Organization [facility] Care Team Providers Care Technical Developer Name Role Phone Mikey INTERIANO, John Rodriguez Unavailable Raudel Su Unavailable Unavailable Raudel Su Unavailable Unavailable Raudel Su Unavailable Unavailable Nurse, Surgery Attending Provider Unavailable Sunita Sexton Attending Provider Unavailable Dr. Morgan Wolf Attending Provider [phone] Dr. Morgan Wolf Other Provider Care Physician, No Primary Primary Care Provider Unavailable Care Physician, No Primary Referring Provider Un available Raudel Su MD Primary Care Provider Raudel Su MD Primary Care Provider Raudel Su MD Primary Care Provider Care Physician, No Primary Primary Care Provider Unavailable Dr. Chaitanya Tang MD Emergency Provider Gillian Mcnally PA-C Unavailable Matthew German Attending Unavailable Care Physician, No Primary Primary Care Unava ilable Care Physician, No Primary Primary Care Unava ilable Morgan Pérez Attending Unavailable Chaitanya Tang Attending Unavailable Care Physician, No Primary Primary Care Unava ilable SANDER HAMMOND Attending Unavailable RAUDEL SU Primary Care Unavailable Medications Current Medications Medication Drug Class(es) Dates Sig (Normalized) Sig (Original) amLODIPine 5 mg oral tablet (8 sources) Dihydropyridine Calcium Channel Krzysztof Start: 11-17-2024 End: 11-17-2024 take 1 tablet by mouth once daily amLODIPine (NORVASC) 5 mg tablet Indications: Hypertension, essential Take 1 tablet by mouth once daily. 90 tablet 3 11/17/2024 Active aspirin 81 mg chewable tablet (20 sources) Nonsteroidal Anti-inflammatory Drug Start: 10-19-2021 take 1 tablet by mouth once daily Aspirin 81 mg tablet,chewable Active 81 mg PO DAILY October 19, 2021 12:00am Start: 02-16-2016 ASPIRIN 81 MG TBEC takes 1 tablet once a day ASPIRIN [id number] Lou Alarcon [employer]GE take 1 tablet by jun th once daily aspirin 81 MG tablet Take 81 mg by mouth daily 0 Active Comment on above: Take 81 mg by mouth once daily. atorvastatin 20 mg oral tablet (20 sources) HMG-CoA Reductase Inhibitor Start: take 1 tablet by mouth at bedtime Atorvastatin 10 mg tablet Active 10 mg PO AT BEDTIME October 19, 2021 12:00am Start: 05-24-2014 take 1 tablet by jun th once daily atorvastatin (LIPITOR) 20 mg tablet Indications: Type 2 diabetes mellitus with microalbuminuria, with long-term current use of insulin (HCC) TAKE 1 TABLET BY MOUTH EVERY DAY 90 tablet 4 11/23/2021 Active ATORVASTATIN FRAN CIUM PO Take by mouth 0 Active Comment on above: TAKE 1 TABLET BY JUN TH EVERY DAY Blood-Glucose Sensor (FREESTYLE HI 3 PLUS SENSOR) demond (13 sources) Start: 11-17-2024 Blood-Glucose Sensor (FREESTYLE HI 3 PLUS SENSOR) demond Indications: Type 2 diabetes mellitus without complication, with long-term current use of insulin (HCC) Use to monitor glucose continuously. Change every 15 days. Insulin dependent; E11.9 6 each 3 11/17/2024 Active Start: 03-19-2024 End: 11-17-2024 Blood-Glucose Sensor (FREEST YLE HI 3 PLUS SENSOR) demond Use to monitor glucose continuously. Change every 15 days. Insulin dependent; E11.9 6 Each 3 03/19/2024 11/17/2024 Discontinued Start: 03-19-2024 Blood-Glucose Sensor (FREESTYLE HI 3 PLUS SENSOR) demond Use to monitor glucose continuously. Change every 15 days. Insulin dependent; E11.9 6 Each 3 03/19/2024 Active clotrimazole 10 mg/ml topical cream (1 source) Azole Antifungal Start: 02-12-2024 Clotrimazole 1 % cream Active 1 NMA TOPICAL TWICE A DAY February 12, 2024 12:00am Diabetes [place] (17 sources) Start: 12-26-2018 Diabetes [place] Indications: Type 2 diabetes mellitus with microalbuminuria, with long-term current use of insulin (HCC) Use as directed once a day. 100 Device 5 12/26/2018 Active Comment on above: Use as directed once a day. docosahexaenoic acid 120 mg / eicosapentaenoic acid 180 mg oral capsule (1 source) Bethany-3 1000 MG CAPS Take 1 capsule by mouth 0 Active ferrous sulfate 325 mg oral tablet (2 sources) Start: 11-28-2021 take 1 tablet by mouth once daily Ferrous Sulfate 325 mg (65 mg iron) tablet Active 325 mg PO DAILY November 28, 2021 12:00am flash glucose scanning reader (FREESTYLE HI 3 READER) (16 sources) Start: 06-27-2023 flash glucose scanning reader (FREESTYLE HI 3 READER) Indications: Type 2 diabetes mellitus without complication, with long-term current use of insulin (HCC) Use continuously to monitor glucose, IDDM, E11.9 1 Each 06/27/2023 Active Start: 06-27-2023 flash glucose scanning reader (FREESTYLE HI 3 READER) Indications: Type 2 diabetes mellitus without complication, with long-term current use of insulin (HCC) Use continuously to monitor glucose, IDDM, E11.9 1 Each 0 06/27/2023 Active Comment on above: Use continuously to monitor glucose, IDDM, E11.9 hydroCHLOROthiazide 25 mg / lisinopril 20 mg oral tablet (20 sources) Thiazide Diuretic, Angiotensin Converting Enzyme Inhibitor Start: 11-29-19 take 1 tablet by mouth once daily Lisinopril-Hyd rochlorothiazi de Active 1 TABLET PO DAILY November 28, 2021 12:00am Start: 08-24-2021 End: 07-25-2023 take 1 tablet by mouth once daily lisinopril-hydroCHLOROthiazide (ZESTORET IC) 20-25 mg per tablet Indications: Hypertension, essential Take 1 tablet by mouth once daily. 90 tablet 3 07/25/2023 Active Start: 05-24-2014 take 1 tablet by jun th once lisinopril-hydrochlorothiazide (PRINZIDE;ZESTORETIC) 20-25 MG per tablet Take 1 tablet by mouth 0 05/24/2014 Active Comment on above: Take 1 tablet by jun th once daily. TAKE 1 TABLET BY JUN TH EVERY DAY insulin aspart protamine, human 70 unt/ml / insulin aspart, human 30 unt/ml injectable suspension monitor glucose, IDDM, E11.9 - atorvastatin (LIPITOR) 20 mg tablet TAKE 1 TABLET BY MOUTH EVERY DAY - MEDICATION, NON-DATABASE Neugenix Total T supplement - Diabetes [place] Use as directed once a day. - Zinc 50 mg tab Take 50 mg by mouth once daily. - aspirin, enteric coated (ASPIRIN, ENTERIC COATED) 81 mg EC tablet Take 81 mg by mouth once daily. Meds Comments as of 02/24/2020: 02/24/20 The medications are managed by this patient by: PATIENT Jessica Lopez, COA Problem List As Of Date 11/27/2024 Noted Resolved Arthritis of knee, right [M17.11] 07/03/2010 10/08/2018 Arthritis of knee, left [M17.12] 07/03/2010 10/08/2018 Medial meniscus tear [S83.249A] 08/03/2010 10/08/2018 Type 2 diabetes mellitus with microalbuminuria,*06/27/2023 Hypertension, essential [I10] 10/08/2018 Hyperlipidemia, mixed [E78.2] 10/08/2018 Obesity, Class II, BMI 35-39.9 [E66.812] 03/26/2019 Combined forms of age-related cataract of both *02/24/2020 Refractive error [H52.7] 02/24/2020 Posterior tibialis tendinitis of both lower ext*04/21/2020 Right ankle joint deformity [M21.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 Please call patient with plan of care. He does not use MyChart. Isabel Zafar, RONNY 11/23/2024 11:14 AM Signed Patient is referring to [facility]. Patient will need a PA. It has been sent to PA team. Sander Hammond APRN.JEN 11/23/2024 1:36 PM Signed Please tell him it needs a PA and we should wait and see if the cost changes if that is approved. Thank you Allison Rao MA 11/27/2024 10:36 AM Signed Spoke with Traci Limon on November 27, 2024. Informed of results / instructions as stated above. TRESSA Mccauley Christina, RONNY 11/30/2024 8:24 AM Signed Vitor Whitt!! We have received notification that the Mounjaro has been approved. Please notify your pharmacy if you have not already picked up the medication. Isabel Zafar, RONNY 11/30/2024 11:35 AM Signed Called patient at [phone] and received VM. Left a detailed VM that he was approved for Mounjaro. Patient should reach out to the pharmacy to have them reprocess the medication. Mounjaro should be a lower limon and if not he should reach out to the office. Closed Allergies As of Date: 11/23/2024 (No Known Allergies) Date Reviewed: 11/17/2024 Reviewed by: Sander Hammond APRN.CAGE UNLOADER - Fully Assessed Reason for Visit: Medication Problem [65] Prescriptions as of 11/30/2024 - tirzepatide (MOUNJARO) 5 mg/0.5 mL pen injector Inject 5 mg subcutaneously one time a week. Patient should start on December 10, 2024. - tirzepatide (MOUNJARO) 2.5 mg/0.5 mL pen injector Inject 2.5 mg subcutaneously one time a week. X 4 wks then increase to 5 mg weeky - metFORMIN (GLUCOPHAGE) 1,000 mg tablet Take 1 tablet by mouth two times a day with meals. - insulin glargine (LANTUS SOLOSTAR U-100 INSULIN) 100 unit/mL (3 mL) Inject 32 units subcutaneously two times a day. - Blood-Glucose Sensor (FREESTYLE HI 3 PLUS SENSOR) demond Use to monitor glucose continuously. Change every 15 days. Insulin dependent; E11.9 - insulin lispro (HUMALOG KWIKPEN INSULIN) 100 unit/mL Inject subcutaneously TID meals up to 30 units daily - insulin needles, DISPOSABLE, (BD INSULIN PEN NEEDLE UF) 31 gauge x 10/30 Use 4 pen needles daily - amLODIPine (NORVASC) 5 mg tablet Take 1 tablet by mouth once daily. - lisinopril-hydroCHLO ROthiazide (ZESTORETIC) 20-25 mg per tablet Take 1 tablet by mouth once daily. - flash glucose scanning reader (FREESTYLE HI 3 READER) Use continuously to monitor glucose, IDDM, E11.9 - atorvastatin (LIPITOR) 20 mg tablet TAKE 1 TABLET BY MOUTH EVERY DAY - MEDICATION, NON-DATABASE Neugenix Total T supplement - Diabetes [place] Use as directed once a day. - Zinc 50 mg tab Take 50 mg by mouth once daily. - aspirin, enteric coated (ASPIRIN, ENTERIC COATED) 81 mg EC tablet Take 81 mg by mouth once daily. Meds Comments as of 02/24/2020: 02/24/20 The medications are managed by this patient by: PATIENT Jessica Lopez, COA Problem List As Of Date 11/23/2024 Noted Resolved Arthritis of knee, right [M17.11] 07/03/2010 10/08/2018 Arthritis of knee, left [M17.12] 07/03/2010 10/08/2018 Medial meniscus tear [S83.249A] 08/03/2010 10/08/2018 Type 2 diabetes mellitus with microalbuminuria,*06/27/2023 Hypertension, essential [I10] 10/08/2018 Hyperlipidemia, mixed [E78.2] 10/08/2018 Obesity, Class II, BMI 35-39.9 [E66.812] 03/26/2019 Combined forms of age-related cataract of both *02/24/2020 Refractive error [H52.7] 02/24/2020 Posterior tibialis tendinitis of both lower ext*04/21/2020 Right ankle joint deformity [M21.961] 04/21/2020 Type 2 diabetes mellitus without complication, *06/27/2023 Encounter Status:Closed by ISABEL ZAFAR on 11/30/24 [facility] 11[facility] CNOV Office Visit (ENDMED) TRACI LIMON ([id number]) 1955 M Date Time Provider Department 11/17/24 8:00 AM SANDER HAMMOND During your visit today, we recorded the following information about you: Pulse Blood pressure Weight Height 79/minute 122/82 112 kg 1.778 m Sander Hammond APRN.CAGE UNLOADER 11/17/2024 9:00 AM Signed Reason for Consultation: DM Type 2 Referring Physician: No referring provider defined for this encounter. HISTORY OF PRESENT ILLNESS Mr. Limon is a 69 year old male presenting here today for a follow up of DM Type 2. As I recall, he was initially diagnosed with diabetes at least age 57. Patient of Dr. Peña; LV 10/01/23 A1C 11.4 on 11/05/24 at [facility] per patient. Up from 7.0 last year History of diabetes type 2, HTN, dyslipidemia, obesity Had a stressful year. with MS and difficulty getting around and been in/out of the hospital and has falls. Had 8 deaths in his family this past year. Stopped working out but resumed last week. Current diabetes regimen is as follows: Metformin 1,000 mg BID Ozempic 1 mg weekly --stopped due to cost--went from $47 to 200's Lantus 32 units BID Novolog TID meals SS #2 --has not been using. Previous DM medication: None he is checking his blood glucose with hi 3 plus CGM--no reader today he does bring a log book today for review. LDE Blood Sugar Frequency: Fasting 140 to 150's During the day 200's Hypoglycemia frequency:denies Hypoglycemia awareness: Yes Regarding symptoms of hypoglycemia, he is not experiencing any symptoms such as polyuria, polydipsia, nocturia or rapid weight loss or blurry vision, Overall, the patient has no acute complaints at this time. PAST MEDICAL HISTORY Diagnosis Date Arthritis of knee, left 07/03/2010 Arthritis of knee, right 07/03/2010 Diabetes (HCC) Hyperchloremia Hypertension PAST SURGICAL HISTORY Procedure Laterality Date KNEE BILATERAL OP SURGERY TONSILLECTOMY HX FAMILY HISTORY Problem Relation Age of Onset Alzheimer's Disease Mother No Ocular Disease Mother other (lung cancer) Mother Heart Attack Father No Ocular Disease Father Diabetes Sister Diabetes Brother Diabetes Sister Diabetes Sister Social History Tobacco Use Smoking status: Never Smokeless tobacco: Never Substance Use Topics Alcohol use: Not Currently Comment: rarely Drug use: No Allergies As of Date: 11/17/2024 (No Known Allergies) Fully Assessed 11/17/2024 Current Outpatient Medications Medication Sig Dispense Refill lisinopril-hydroCHLO ROthiazide (ZESTORETIC) 20-25 mg per tablet Take 1 tablet by mouth once daily. 90 tablet 3 flash glucose scanning reader (FREESTYLE HI 3 READER) Use continuously to monitor glucose, IDDM, E11.9 1 Each 0 atorvastatin (LIPITOR) 20 mg tablet TAKE 1 TABLET BY MOUTH EVERY DAY 90 tablet 4 MEDICATION, NON-DATABASE Neugenix Total T supplement Diabetes [place] Use as directed once a day. 100 Device 5 Zinc 50 mg tab Take 50 mg by mouth once daily. aspirin, enteric coated (ASPIRIN, ENTERIC COATED) 81 mg EC tablet Take 81 mg by mouth once daily. [START ON 12/10/2024] tirzepatide (MOUNJARO) 5 mg/0.5 mL pen injector Inject 5 mg subcutaneously one time a week. Patient should start on December 10, 2024. 2 mL 5 tirzepatide (MOUNJARO) 2.5 mg/0.5 mL pen injector Inject 2.5 mg subcutaneously one time a week. X 4 wks then increase to 5 mg weeky 2 mL 0 metFORMIN (GLUCOPHAGE) 1,000 mg tablet Take 1 tablet by mouth two times a day with meals. 180 tablet 3 insulin glargine (LANTUS SOLOSTAR U-100 INSULIN) 100 unit/mL (3 mL) Inject 32 units subcutaneously two times a day. 60 mL 3 Blood-Glucose Sensor (FREESTYLE HI 3 PLUS SENSOR) demond Use to monitor glucose continuously. Change every 15 days. Insulin dependent; E11.9 6 each 3 insulin lispro (HUMALOG KWIKPEN INSULIN) 100 unit/mL Inject subcutaneously TID meals up to 30 units daily 30 mL 3 insulin needles, DISPOSABLE, (BD INSULIN PEN NEEDLE UF) 31 gauge x 5/16 Use 4 pen needles daily 360 each 3 amLODIPine (NORVASC) 5 mg tablet Take 1 tablet by mouth once daily. 90 tablet 3 No current facility-administere d medications for this visit. REVIEW OF SYSTEMS Review of Systems Respiratory: Negative for difficulty breathing. Cardiovascular: Negative for chest pain. Gastrointestinal: Negative for nausea, vomiting, diarrhea and constipation. PHYSICAL EXAMINATION BP 122/82 Pulse 79 Ht 177.8 cm (5' 10) Wt 112 kg (246 lb 14.6 oz) SpO2 100% BMI 35.43 kg/m2 Physical Exam Constitutional: Appearance: Normal appearance. He is obese. Cardiovascular: Rate and Rhythm: Normal rate and regular rhythm. Pulmonary: Effort: Pulmonary effort is normal. Breath sounds: Normal breath sounds. Skin: General: Skin is warm and dry. Neurological: Mental Status: He is alert and oriented to person, place, and time. P (more content not included)... Normal [facility] HEMOGLOBIN A1C (EXTERNAL)on 11-05-2024 HbA1c (Bld) [Mass fraction] 11.4 % Abnormal 0 - 5.7 % [facility] Interpretation and review of laboratory results Abnormal [facility] CNPNon 09-22-2024 CNPN Telephone ([employer]) TRACI LIMON ([id number]) 1955 M Date Time Provider Department 09/22/24 XI PEÑA During your visit today, we recorded the following information about you: Christa Watson RN 09/22/2024 10:32 AM Signed At 1012 today Retrieved a VM from patient from yesterday afternoon left at 1416. Patient stated that he was currently out of insulin pen needles, and his glucose is >300. Noted that a prescription was sen yesterday 09/21/24 for pen needles as there was already a prescription request. Contacted the pharmacy, they stated the the pen needles needed to be ordered. Their system noted that would be arriving today and patient will be auto notified when they arrive, but should be there this afternoon. Called and left a detailed VM for patient at [phone] of the above information but also informed him that in the future he can also purchase OTC pen needles without a prescription at any local pharmacy in very low quantities he he is in need emergently to avoid running out and so he can always be able to administer insulin. Closed. Allergies As of Date: 09/22/2024 (No Known Allergies) Date Reviewed: 10/01/2023 Reviewed by: Jackie Perales MA - Fully Assessed Reason for Visit: Pen [place] Follow Up Call [Other] Prescriptions as of 09/22/2024 - insulin glargine-yfgn (SEMGLEE,INSULIN GLARG-YFGN,PEN) 100 unit/mL (3 mL) insulin pen Inject 32 Units subcutaneously two times a day. - insulin needles, DISPOSABLE, (BD INSULIN PEN NEEDLE UF) 31 gauge x 5/16 8 mm, 4 times daily - Blood-Glucose Sensor (FREESTYLE HI 3 PLUS SENSOR) demond Use to monitor glucose continuously. Change every 15 days. Insulin dependent; E11.9 - metFORMIN (GLUCOPHAGE) 1,000 mg tablet Take 1 tablet by mouth two times a day with meals. - semaglutide (OZEMPIC) 1 mg/dose (4 mg/3 mL) pen Inject 1 mg subcutaneously one time a week. - lisinopril-hydroCHLO ROthiazide (ZESTORETIC) 20-25 mg per tablet Take 1 tablet by mouth once daily. - flash glucose scanning reader (FREESTYLE HI 3 READER) Use continuously to monitor glucose, IDDM, E11.9 - atorvastatin (LIPITOR) 20 mg tablet TAKE 1 TABLET BY MOUTH EVERY DAY - MEDICATION, NON-DATABASE Neugenix Total T supplement - Diabetes [place] Use as directed once a day. - Zinc 50 mg tab Take 50 mg by mouth once daily. - aspirin, enteric coated (ASPIRIN, ENTERIC COATED) 81 mg EC tablet Take 81 mg by mouth once daily. Meds Comments as of 02/24/2020: 02/24/20 The medications are managed by this patient by: PATIENT Jessica Lopez, COA Problem List As Of Date 09/22/2024 Noted Resolved Arthritis of knee, right [M17.11] 07/03/2010 10/08/2018 Arthritis of knee, left [M17.12] 07/03/2010 10/08/2018 Medial meniscus tear [S83.249A] 08/03/2010 10/08/2018 Type 2 diabetes mellitus with microalbuminuria,*06/27/2023 Hypertension, essential [I10] 10/08/2018 Hyperlipidemia, mixed [E78.2] 10/08/2018 Obesity, Class II, BMI 35-39.9 [E66.812] 03/26/2019 Combined forms of age-related cataract of both *02/24/2020 Refractive error [H52.7] 02/24/2020 Posterior tibialis tendinitis of both lower ext*04/21/2020 Right ankle joint deformity [M21.961] 04/21/2020 Type 2 diabetes mellitus without complication, *06/27/2023 Encounter Status:Closed by CHRISTA WATSON on 09/22/24 Normal [facility] Absolute neutrophil countOrd ered By: Chaitanya Tang on 09-18-2024 Neutrophils (Bld) [#/Vol] 3.0 10*3/uL 2.0-7.7 [facility] Anion gap in Serum or Plasma Ordered By: Chaitanya Tang on 09-18-2024 Anion gap [Moles/Vol] 16 mmol/L High - [facility] BUN/creatinine ratioOrdered By: Chaitanya Tang on 09-18-2024 Urea nitrogen/Creatinine [Mass ratio] 14.1 mg/mg - [facility] Basic Metabolic Profile (BMP )on 09-18-2024 BUN/CRE 14.1 RATIO Normal 04-05 [facility] Comment on above: Performed By: #### M 200.1000 #### [facility] [address] [place], [address] Calcium [Mass/Vol] 9.7 mg/dL Normal 7.6-11.0 [facility] Comment on above: Performed By: #### M 200.1000 #### [facility] [address] [place], [address] Chloride [Moles/Vol] 98 mmol/L Normal 98-108 [facility] Comment on above: Performed By: #### M [id number] #### [facility] [address] [place], [address] CO2 [Moles/Vol] 19.6 mmol/L Low 21.0-32.0 [facility] Comment on above: Performed By: #### M [id number] #### [facility] [address] [place], [address] Creatinine [Mass/Vol] 0.93 mg/dL Normal 0.70-1.[address] [facility] Comment on above: Performed By: #### M [id number] #### [facility] [address] [place], [address] ECRCL 96.03 ml/min Normal 50-250 [facility] Comment on above: Performed By: #### M [id number] #### [facility] [address] [place], [address] GAP 16 High 5-15 [facility] Comment on above: Performed By: #### M 200.1000 #### [facility] [address] [place], [address] GFR/1.73 sq M.predicted among non-blacks MDRD (S/P/Bld) [Vol rate/Area] 90 mL/min/{1.73_m2} Normal >60 [facility] Comment on above: Result Comment: mL/m in/1.73m2 CKD-EPI Creatinine Equation (2020) Performed By: #### M 200.1000 #### [facility] [address] [place], [address] Glucose [Mass/Vol] 211 mg/dL High 70-99 [facility] Comment on above: Performed By: #### M 200.1000 #### [facility] [address] [place], [address] Potassium [Moles/Vol] 3.3 mmol/L Normal 3.3-5.[address] [facility] Comment on above: Performed By: #### M [id number] #### [facility] [address] [place], [address] Sodium [Moles/Vol] 134 mmol/L Normal 133-145 [facility] Comment on above: Performed By: #### M [id number] #### [facility] [address] [place], [address] Urea nitrogen [Mass/Vol] 13 mg/dL Normal 4-19 [facility] Comment on above: Performed By: #### M 200.1000 #### [facility] [address] [place], [address] Basophil percentageOrdered B y: Chaitanya Tang on 09-18-2024 Basophils/100 WBC (Bld) 0.6 % 0-1 [facility] Bedside Glucoseon 09-18-2024 FINGERSTICK GLU 206 mg/dL High 74-106 [facility] Comment on above: Result Comment: TRACY MOORE OF PATIENT CARE PER NURSING PROTOCOL Performed By: #### L 501.080 #### [facility] [address] [place], [address] Bilirubin Test strip Ql (U)O rdered By: Chaitanya Tang on 09-18-2024 Bilirubin Ql (U) Negative Negative [facility] CBC W/Diff, Automatedon 04-0 4-2025 Absolute Lymph 4.25 X10 3/uL Normal 0.83-4.51 [facility] Comment on above: Performed By: #### M [id number] #### [facility] [address] [place], [address] Absolute Neut 3.0 X10 3/uL Normal 2.0-7.7 [facility] Comment on above: Performed By: #### M [id number] #### [facility] [address] [place], [address] Basophils/100 WBC (Bld) 0.6 % Normal 0-1 [facility] Comment on above: Performed By: #### M [id number] #### [facility] [address] [place], [address] Eosinophils/100 WBC (Bld) 0.7 % Normal 0-5 [facility] Comment on above: Performed By: #### M [id number] #### [facility] [address] [place], [address] Erythrocyte distribution width (RBC) [Ratio] 12.7 % Normal 11.6-14.6 [facility] Comment on above: Performed By: #### M [id number] #### [facility] [address] [place], [address] Hematocrit (Bld) [Volume fraction] 37.9 % Low 40-54 [facility] Comment on above: Performed By: #### M 200.1000 #### [facility] [address] [place], [address] Hemoglobin (Bld) [Mass/Vol] 13.4 g/dL Normal 13.0-16.5 [facility] Comment on above: Performed By: #### M 200.1000 #### [facility] [address] [place], [address] IG% 0.500 Normal 0.0-0.9 [facility] Comment on above: Result Comment: IG% - Immature Granulocytes (promyelocytes, myelocytes and metamyelocytes) > 1% indicates that a LEFT SHIFT is Present. Performed By: #### M 200.1000 #### [facility] [address] [place], [address] Lymphocytes/100 WBC (Bld) 51.9 % High 19-41 [facility] Comment on above: Performed By: #### M [id number] #### [facility] [address] [place], [address] MCH (RBC) [Entitic mass] 31.8 pg Normal 27.0-32.0 [facility] Comment on above: Performed By: #### M 200.1000 #### [facility] [address] [place], [address] MCHC (RBC) [Mass/Vol] 35.4 g/dL Normal 32-[address] [facility] Comment on above: Performed By: #### M 200.1000 #### [facility] [address] [place], [address] MCV (RBC) [Entitic vol] 89.8 fL Normal 80-94 [facility] Comment on above: Performed By: #### M 200.1000 #### [facility] [address] [place], [address] Monocytes/100 WBC (Bld) 9.4 % Normal 0-10 [facility] Comment on above: Performed By: #### M [id number] #### [facility] [address] [place], [address] Neutrophils/100 WBC (Bld) 36.9 % Low 47-70 [facility] Comment on above: Performed By: #### M 200.1000 #### [facility] [address] [place], [address] Nucleated RBC (Bld) [#/Vol] 0 10*3/uL Normal 0-5 [facility] Comment on above: Performed By: #### M 200.1000 #### [facility] [address] [place], [address] Platelet mean volume (Bld) [Entitic vol] 9.6 fL Normal 6.2-12.0 [facility] Comment on above: Performed By: #### M 200.1000 #### [facility] [address] [place], [address] Platelets (Bld) [#/Vol] 287 10*3/uL Normal 150-450 [facility] Comment on above: Performed By: #### M 200.1000 #### [facility] [address] [place], [address] RBC (Bld) [#/Vol] 4.22 10*6/uL Low 4.6-6.2 [facility] Comment on above: Performed By: #### M 200.1000 #### [facility] [address] [place], [address] RDW SD 41.7 fl Normal 35.1-43.9 [facility] Comment on above: Performed By: #### M 200.1000 #### [facility] [address] [place], [address] WBC (Bld) [#/Vol] 8.2 10*3/uL Normal 4.4-11.0 [facility] Comment on above: Performed By: #### M 200.1000 #### [facility] [address] [place], [address] Carbon dioxide, total [Moles /volume] in Central venous bloodOrdered By: Chaitanya Tang on 09-18-2024 CO2 [Moles/Vol] 19.6 mmol/L Low 21.0-32.0 [facility] Chloride assayOrdered By: All Tang on 09-18-2024 Chloride [Moles/Vol] 98 mmol/L 98-108 [facility] Emergency Department Summary on 09-18-2024 Emergency Department Summary [facility] Medical Records Department [address] [place] [address] Emergency Department Summary 09/18/24 MR#: [id number] Acct: [id number] Name: TRACI LIMON Rep #: [id number] : 1955 69 From: Chaitanya Tang MD PCP: Care Physician,No Primary Status:DEP ER Location: ED HPI History of Present Illness Chief Complaint: General Illness Informant: patient and EMS Narrative Narrative: 69-year-old male diabetic states he has been having sore cramping in his muscles all over his body and his back over the past hour. Presents by EMS. He states although he is a diabetic, he has not been checking his sugars in the past couple months because his meter broke and he has not had a wireless sensor until today. He put the wireless sensor on and noticed that his blood sugar was reading high. Therefore he states he took a dose of corrective insulin, little later his blood sugar came down to the 385 range and then later the 240 range and he thought he was doing better until he started cramping all over. He states the cramping is not so bad right now. Denies any abdominal discomfort vomiting diarrhea cough, dyspnea, chest pain, recent illness otherwise. He states he has had polyuria polydipsia for the past 3 days or so. [facility] Medical History Wears glasses Diabetes Insulin dependent diabetes mellitus High cholesterol Injury of head and neck Colon polyps Mixed hyperlipidemia Hypertension Home Medications ???Medication ???Instructions ???Recorded ???Last Taken ???Type aspirin 81 mg chewable tablet 81 mg PO DAILY 10/19/21 11/28/21 H istory atorvastatin 10 mg tablet 10 mg PO QHS 10/19/21 Unknown Hist ory insulin aspar prt-insulin aspart 1 sliding scale dose subcut Unknown History 100 unit/mL (70-30) subcutaneous USEASDIRECTD soln (Novolog Mix 70-30 U-100 Insuln) insulin glargine 100 unit/mL (3 66 unit subcut 0800 10/19/2112/01 History mL) subcutaneous pen (Basaglar KwikPen U-100 Insulin) metformin 500 mg tablet 1,000 mg PO BID 10/19/21 Unknown H istory ferrous sulfate 325 mg (65 mg 325 mg PO DAILY 11/28/21 Unknown H istory iron) tablet lisinopril 20 1 tab PO DAILY 11/28/21 12/01/21 H istory mg-hydrochlorothiazi de 25 mg tablet semaglutide 1 mg/dose (4 mg/3 mL) 1 mg subcut QWEEK 11/19/23 Unknow n History subcutaneous pen injector (Ozempic) clotrimazole 1 % topical cream 1 applic topical BID #15 grams Unknown Rx Allergy/AdvReac Type Severity Reaction Status Date / Time No Known Allergies Allergy Verified 09/18/24 21:12 Surgical History Hx of colonoscopy Hx of surgical procedure Hx of total knee replacement Hx of tonsillectomy Social History Smoking Status: Never smoker ROS ROS ED Constitutional Constitutional ED: Denies chills or fever(s) Eyes Eyes: Denies change in vision or diplopia ENT ENT ED: Denies rhinorrhea or sore throat Cardiovascular Cardiovascular: Denies chest pain or palpitations Respiratory/Chest Respiratory/Chest: Denies cough or dyspnea Gastrointestinal Gastrointestinal: Denies abdominal pain, diarrhea, nausea or vomiting Genitourinary Genitourinary ED: Reports urinary frequency; Denies dysuria or hematuria Musculoskeletal Musculoskeletal: Reports myalgias; Denies back pain or neck pain Integumentary Denies abscess or rash Neurologic Neurologic: Denies headache(s), paresthesias or weakness Psychiatric Psychiatric: Denies suicidal thoughts Endocrine Endocrinology: Reports polydipsia and polyuria EXAM Physical Exam Const Vital Signs: 09/18/24 21:05 09/18/24 21:48 09/18/24 22:00 Temperature 98.3 F Temperature Source Oral Pulse Rate 101 H 100 95 Respiratory Rate 18 20 H 16 Blood Pressure 122/79 H 131/90 H Blood Pressure Mean 93 102 Pulse Ox 98 Oxygen Delivery Method Room Air 09/18/24 22:15 09/18/24 22:30 09/18/24 22:45 Temperature Temperature Source Pulse Rate 92 92 94 Respiratory Rate 20 H 18 17 Blood Pressure 128/81 H 134/70 H 141/85 H Blood Pressure Mean 93 87 99 Pulse Ox Oxygen Delivery Method 09/18/24 23:00 Temperature Temperature Source Pulse Rate 95 Respiratory Rate 19 H Blood Pressure 133/77 H Blood Pressure Mean 93 Pulse Ox Oxygen Delivery Method Positive well nourished and well developed General Appearance ED: well developed and NAD HEENT Reports moist mucous membranes normocephalic and atraumatic Eyes PERRL and EOMs intact bilaterally Neck full ROM and supple Resp normal respiratory effort and clear to auscultatio (more content not included)... Normal [facility] Eosinophil percentageOrdered By: Chaitanya Tang on 09-18-2024 Eosinophils/100 WBC (Bld) 0.7 % 0-5 [facility] Epithelial cells.squamous LM Ql (Urine sed)Ordered By: Chaitanya Tang on 09-18-2024 Epithelial cells.squamous LM.HPF (Urine sed) [#/Area] 0 /[HPF] 0-5 [facility] Erythrocyte distribution wid th (RBC) [Ratio]Ordered By: Chaitanya Tang on 09-18-2024 Erythrocyte distribution width (RBC) [Entitic vol] 41.7 fL 35.1-43.9 [facility] Erythrocyte distribution wid th ratioOrdered By: Chaitanya Tang on 09-18-2024 Erythrocyte distribution width (RBC) [Ratio] 12.7 % 11.6-14.6 [facility] Estimation of creatinine megan aranceOrdered By: Chaitanya Tang on 09-18-2024 Estimated Creatinine Clearance Calc 96.03 ml/min 50-250 [facility] GFR/1.73 sq M.predicted sameer g non-blacks MDRD (S/P/Bld) [Vol rate/Area]Ordered By: Chaitanya Tang on 09-18-2024 Estimated GFR (MDRD) Non-Af Amer 90 >60 [facility] Comment on above: mL/min/1.73m2 CKD-EP I Creatinine Equation (2020) Glucose Ql (U)Ordered By: All Tang on 09-18-2024 Glucose (U) [Mass/Vol] 1000 mg/dL High Normal [facility] Glucose measurement at bedsi deOrdered By: Chaitanya Tang on 09-18-2024 Bedside Glucose (Misc Panel) 206 mg/dL High 74-106 [facility] Comment on above: MANAGEMENT OF PATIEN T CARE PER NURSING PROTOCOL Hematocrit Auto (Bld) [Volum e fraction]Ordered By: Chaitanya Tang on 09-18-2024 Hematocrit (Bld) [Volume fraction] 37.9 % Low 40-54 [facility] Hemoglobin measurementOrdere d By: Chaitanya Tang on 09-18-2024 Hemoglobin (Bld) [Mass/Vol] 13.4 g/dL 13.0-16.5 [facility] Immature granulocytes/100 WB C Auto (Bld)Ordered By: Chaitanya Tang on 09-18-2024 Immature granulocytes/100 WBC (Bld) 0.500 % 0.0-0.9 [facility] Comment on above: IG% - Immature Granu locytes (promyelocytes, myelocytes and metamyelocytes) > 1% indicates that a LEFT SHIFT is Present. Ketones Test strip Ql (U)Ord ered By: Chaitanya Tang on 09-18-2024 Ketones Ql (U) 5 mg/dl High Negative [facility] Lymphocytes Auto (Unsp spec) [#/Vol]Ordered By: Chaitanya Tang on 09-18-2024 Lymphocytes (Bld) [#/Vol] 4.25 10*3/uL 0.83-4.51 [facility] Lymphocytes/100 WBC Auto (Un sp spec)Ordered By: Chaitanya Tang on 09-18-2024 Lymphocytes/100 WBC (Bld) 51.9 % High 19-41 [facility] MCV (mean corpuscular volume ) determinationOrdered By: Chaitanya Tang on 09-18-2024 MCV (RBC) [Entitic vol] 89.8 fL 80-94 [facility] Mean corpuscular hemoglobin (MCH) determinationOrdered By: Chaitanya Tang on 09-18-2024 MCH (RBC) [Entitic mass] 31.8 pg 27.0-32.0 [facility] Mean corpuscular hemoglobin concentration (MCHC) determinationOrdered By: Chaitanya Tang on 09-18-2024 MCHC (RBC) [Mass/Vol] 35.4 g/dL 32-[address] [facility] Mean platelet volume determi nationOrdered By: Chaitanya Tang on 09-18-2024 Platelet mean volume (Bld) [Entitic vol] 9.6 fL 6.2-12.0 [facility] Microscopic analysis of urin e for red blood cells (RBC)Ordered By: Chaitanya Tang on 09-18-2024 Urine RBC 0-5 SEEN /hpf 0-5 [facility] Monocyte percentageOrdered B y: Chaitanya Tang on 09-18-2024 Monocytes/100 WBC (Bld) 9.4 % 0-10 [facility] Mucus LM Ql (Urine sed)Order ed By: Chaitanya Tang on 09-18-2024 Mucus Ql (Urine sed) 0 SEEN /hpf [facility] Neutrophil percentageOrdered By: Chaitanya Tang on 09-18-2024 Neutrophils/100 WBC (Bld) 36.9 % Low 47-70 [facility] Nitrite Test strip Ql (U)Ord ered By: Chaitanya Tang on 09-18-2024 Nitrite Ql (U) Negative Negative [facility] Nucleated red blood cell per centageOrdered By: Chaitanya Tang on 09-18-2024 Nucleated RBC/100 WBC (Bld) [Ratio] 0 % 0-5 [facility] Platelet countOrdered By: All Tang on 09-18-2024 Platelets (Bld) [#/Vol] 287 10*3/uL 150-450 [facility] Potassium (Unsp spec) [Mass/ Vol]Ordered By: Chaitanya Tang on 09-18-2024 Potassium [Moles/Vol] 3.3 mmol/L 3.3-5.[address] [facility] Protein Test strip Ql (U)Ord ered By: Chaitanya Tang on 09-18-2024 Protein Ql (U) 100 mg/dl High Negative [facility] RBC Auto (Bld) [#/Vol]Ordere d By: Chaitanya Tang on 09-18-2024 RBC (Bld) [#/Vol] 4.22 10*6/uL Low 4.6-6.2 [facility] Serum creatinine measurement (mass/volume)Ordered By: Chaitanya Tang on 09-18-2024 Creatinine [Mass/Vol] 0.93 mg/dL 0.70-1.[address] [facility] Serum glucose measurement (m ass/volume)Ordered By: Chaitanya Tang on 09-18-2024 Glucose [Mass/Vol] 211 mg/dL High 70-99 [facility] Serum or plasma calcium grant urement (mass/volume)Ordered By: Chaitanya Tang on 09-18-2024 Calcium [Mass/Vol] 9.7 mg/dL 7.6-11.0 [facility] Serum or plasma urea nitroge n measurement (mass/volume)Ordered By: Chaitanya Tang on 09-18-2024 Urea nitrogen [Mass/Vol] 13 mg/dL 4-19 [facility] Sodium levelOrdered By: Thang Tang on 09-18-2024 Sodium [Moles/Vol] 134 mmol/L 133-145 [facility] Urinalysis, Completeon 09-18 EPI,SQUAMOUS 0-5 SEEN Normal 0-5 [facility] Comment on above: Order Comment: CLEAN CATCH Performed By: #### M 200.1000 #### [facility] [address] [place], [address] RBC 0-5 SEEN Normal 0-5 [facility] Comment on above: Order Comment: CLEAN CATCH Performed By: #### M 200.1000 #### [facility] [address] [place], [address] WBC 0-5 SEEN Normal 0-5 [facility] Comment on above: Order Comment: CLEAN CATCH Performed By: #### M 200.1000 #### [facility] [address] [place], [address] BACTERIA 0 SEEN Normal None Seen [facility] Comment on above: Order Comment: CLEAN CATCH Performed By: #### M 200.1000 #### [facility] [address] [place], [address] Mucus Ql (Urine sed) 0 SEEN Normal [facility] Comment on above: Order Comment: CLEAN CATCH Performed By: #### M 200.1000 #### [facility] [address] [place], [address] Urine blood detectionOrdered By: Chaitanya Tang on 09-18-2024 Urine Occult Blood 10 /ul High Negative [facility] Urine clarityOrdered By: Autumn Tang on 09-18-2024 Clarity (U) Sl. Cloudy Clear [facility] Urine color determinationOrd ered By: Chaitanya Tang on 09-18-2024 Color (U) Yellow Yellow [facility] Urine leukocyte esterase det ection by dipstickOrdered By: Chaitanya Tang on 09-18-2024 Leukocyte esterase Test strip Ql (U) 25 /ul High Negative [facility] Urine pHOrdered By: Chaitanya Tang on 09-18-2024 pH (U) 5.0 [pH] 5.0 - 8.0 [facility] Urine sediment bacteria coun t by microscopy (number/high power field)Ordered By: Chaitanya Tang on 09-18-2024 Bacteria LM.HPF (Urine sed) [#/Area] 0 /[HPF] None Seen [facility] Urine specific gravity measu rementOrdered By: Chaitanya Tang on 09-18-2024 Specific gravity (U) [Rel density] 1.020 1.002-1.030 [facility] Urobilinogen Ql (U)Ordered B y: Chaitanya Tang on 09-18-2024 Urine Urobilinogen Normal mg/dl Normal [facility] White blood cell (WBC) count Ordered By: Chaitanya Tang on 09-18-2024 WBC (Bld) [#/Vol] 8.2 10*3/uL 4.4-11.0 [facility] White blood cell countOrdere d By: Chaitanya Tang on 09-18-2024 Urine WBC 0-5 SEEN /hpf 0-5 [facility] Urine Cultureon 02-14-2024 [facility] Staphylococcus aureus [place] Count 25,000-50,000 Staphylococcus aureus: REACTION cefOXitin Susc Islt NEG Doxycycline Islt ANTONINO <=0.5 S Clindamycin.induced Susc Islt NEG Gentamicin Islt ANTONINO <=0.5 S Linezolid Islt ANTONINO 2 S Moxifloxacin Islt ANTONINO <=0.25 S Nitrofurantoin Islt ANTONION <=16 S Oxacillin Susc Islt 0.5 S Tetracycline Islt ANTONINO <=1 S TMP SMX Islt ANTONINO <=10 S Vancomycin Islt ANTONINO <=0.5 S Normal [facility] Comment on above: Performed By: #### L 400.0001, M100.2200 #### [facility] [address] [place], [address] Emergency Department Summary on 02-12-2024 Emergency Department Summary [facility] Medical Records Department [address] [place] [address] Emergency Department Summary 02/12/24 MR#: [id number] Acct: [id number] Name: TRACI LIMON Rep #: [id number] : 1955 68 From: Morgan Pérez DO PCP: Care Physician,No Primary Status:DEP ER Location: ED HPI History of Present Illness Chief Complaint: Male Pain/Injury Informant: patient Pain Onset: Days (3) Context: Gradual Onset Timing: Continuous Worsened by: Palpation Relieved by: Nothing Narrative Narrative: Patient presents with pain and swelling to his glans penis that has been getting worse over the last 3 days. Patient states it is gradually getting worse. Patient describes his pain as sharp. Patient states he had noted some white discharge and drainage over the glans penis. Patient denies any difficulty retracting his foreskin or reducing his foreskin. However, patient states that due to the swelling of his glans penis his foreskin does not completely cover his glans penis. Patient admits to some dysuria but denies any hematuria or frequency. Patient denies any fevers or chills. Patient is diabetic. Prior similar symptoms: No PFSH PFSH Medical History Wears glasses Diabetes Insulin dependent diabetes mellitus High cholesterol Injury of head and neck Colon polyps Mixed hyperlipidemia Hypertension Home Medications ???Medication ???Instructions ???Recorded ???Last Taken ???Type aspirin 81 mg chewable tablet 81 mg PO DAILY 10/19/21 11/28/21 History atorvastatin 10 mg tablet 10 mg PO QHS 10/19/21 Unknown History insulin aspar prt-insulin aspart 1 sliding scale dose subcut 10/19/21 Unknown History 100 unit/mL (70-30) subcutaneous USEASDIRECTD soln (Novolog Mix 70-30 U-100 Insuln) insulin glargine 100 unit/mL (3 66 unit subcut 0800 10/19/21 12/01/21 History mL) subcutaneous pen (Basaglar KwikPen U-100 Insulin) metformin 500 mg tablet 1,000 mg PO BID 10/19/21 Unknown History ferrous sulfate 325 mg (65 mg 325 mg PO DAILY 11/28/21 Unknown History iron) tablet lisinopril 20 1 tab PO DAILY 11/28/21 12/01/21 History mg-hydrochlorothiazi de 25 mg tablet semaglutide 1 mg/dose (4 mg/3 mL) 1 mg subcut QWEEK 11/19/23 Unknown History subcutaneous pen injector (Ozempic) clotrimazole 1 % topical cream 1 applic topical BID #15 grams 02/12/24 Unknown Rx Allergy/AdvReac Type Severity Reaction Status Date / Time No Known Allergies Allergy Verified 12/01/21 08:49 Surgical History Hx of colonoscopy Hx of surgical procedure Hx of total knee replacement Hx of tonsillectomy Social History Smoking Status: Never smoker ROS ROS ED Constitutional Constitutional ED: Denies chills or fever(s) Eyes Eyes: Denies blurry vision or change in vision ENT ENT ED: Denies rhinorrhea or sore throat Cardiovascular Cardiovascular: Denies chest pain or palpitations Respiratory/Chest Respiratory/Chest: Denies cough or dyspnea Gastrointestinal Gastrointestinal: Denies nausea or vomiting Genitourinary Genitourinary ED: Reports dysuria; Denies hematuria Musculoskeletal Musculoskeletal: Denies back pain or neck pain Integumentary Denies abscess or rash Neurologic Neurologic: Denies headache(s) or weakness Allergic/Immunologic Allergic/Immunologic ED: Denies mouth swelling or urticaria EXAM Physical Exam Const Vital Signs: 02/12/24 16:20 02/12/24 16:22 02/12/24 17:22 Temperature 96.8 F L 98.3 F 98.3 F Temperature Source Temporal Oral Oral Pulse Rate 106 H 78 78 Respiratory Rate 20 H 16 16 Blood Pressure 117/93 H 162/98 H 161/92 H Blood Pressure Mean 101 119 115 Pulse Ox 96 98 98 Oxygen Delivery Method Room Air Room Air Room Air 02/12/24 18:20 Temperature Temperature Source Pulse Rate 91 Respiratory Rate 16 Blood Pressure 140/83 H Blood Pressure Mean 102 Pulse Ox 97 Oxygen Delivery Method Room Air Positive well nourished and well developed General Appearance ED: well developed and NAD HEENT Reports moist mucous membranes Neck supple and no JVD Resp normal respiratory effort and clear to auscultation bilaterally Cardio regular rate and regular rhythm GI non-tender and non-distended Palpation: soft Narrative: There is edema and white drainage over the glans penis. There is a paraphimosis noted. There is mild tenderness to palpation. There are no ulcerations noted. There is no urethral discharge noted. Extremity normal to inspection Neuro oriented x3, CN's II-XII intact bilaterally, moves all extremities, no focal motor deficits and no sensory deficits not (more content not included)... Normal [facility] Urinalysis, Completeon 02-11 BACTERIA 2+ /hpf Normal None Seen [facility] Comment on above: Order Comment: CLEAN CATCH Performed By: #### L 400.0001, M100.0 #### [facility] [address] [place], [address] CA OX CRYSTAL RARE Normal [facility] Comment on above: Order Comment: CLEAN CATCH Performed By: #### L 400.0001, M100.2200 #### [facility] [address] [place], [address] Mucus Ql (Urine sed) 1+ /hpf Normal [facility] Comment on above: Order Comment: CLEAN CATCH Performed By: #### L 400.0001, M100.2200 #### [facility] [address] [place], [address] RBC 5-10 SEEN Normal 0-5 [facility] Comment on above: Order Comment: CLEAN CATCH Performed By: #### L 400.0001, M100.2200 #### [facility] [address] [place], [address] CAST,HYALINE 0-5 SEEN Normal 0-5 [facility] Comment on above: Order Comment: CLEAN CATCH Performed By: #### L 400.0001, M100.2200 #### [facility] [address] [place], [address] EPI,SQUAMOUS 0-5 SEEN Normal 0-5 [facility] Comment on above: Order Comment: CLEAN CATCH Performed By: #### L 400.0001, M100.2200 #### [facility] [address] [place], [address] WBC 5-10 SEEN Normal 0-5 [facility] Comment on above: Order Comment: CLEAN CATCH Performed By: #### L 400.0001, M100.2200 #### [facility] [address] [place], [address] Culture, Blood (WB)on 2023 CUB No growth in 5 days. Normal [facility] Comment on above: Performed By: #### M 200.1000 #### [facility] [address] [place], [address] CUB No growth in 5 days. Normal [facility] Comment on above: Performed By: #### M 200.1000 #### [facility] [address] [place], [address] 12 Lead EKGon 11-19-2023 12 Lead EKG [facility] [address] [place] [address] 12 Lead EKG 11/19/23 1136 MR#: [id number] Acct: [id number] Name: TRACI LIMON Rep #: [id number] : 1955 68 From: Mayito Benites MD Attending Dr: Status: DEP ER Ordering Dr: Matthew German DO Date: 11/19/23 Location: ED Sex: M AA Admitted: Test Reason : RESP ILLNESS Blood Pressure : / mmHG Vent. Rate : 128 BPM Atrial Rate : 128 BPM P-R Int : 152 ms QRS Dur : 072 ms QT Int : 300 ms P-R-T Axes : 065 053 014 degrees QTc Int : 438 ms Sinus tachycardia Nonspecific T wave abnormality Abnormal ECG Confirmed by Mayito Benites ([id number]), publishing editor SOPHY LEAVITT ([id number]) on 11/20/2023 2:52:39 PM Referred By: Confirmed By:Mayito Benites 11/20/232 Date Mayito Benites MD CC: Dr. Matthew German, DO; No Primary Care Physician Signed Normal [facility] Basic Metabolic Profile (BMP )on 11-19-2023 BUN/CRE 10.1 RATIO Normal 10-20 [facility] Comment on above: Order Comment: 'TROP ' Serial specimen #1, #2 or #3: 1 Performed By: #### M 200.1000 #### [facility] [address] [place], [address] CA,Total 9.3 mg/dL Normal 8.5-10.1 [facility] Comment on above: Order Comment: 'TROP ' Serial specimen #1, #2 or #3: 1 Performed By: #### M 200.1000 #### [facility] [address] [place], [address] Chloride [Moles/Vol] 104 mmol/L Normal 98-107 [facility] Comment on above: Order Comment: 'TROP ' Serial specimen #1, #2 or #3: 1 Performed By: #### M 200.1000 #### [facility] [address] [place], [address] CO2 [Moles/Vol] 23.0 mmol/L Normal 21.0-32.0 [facility] Comment on above: Order Comment: 'TROP ' Serial specimen #1, #2 or #3: 1 Performed By: #### M 200.1000 #### [facility] [address] [place], [address] Creatinine [Mass/Vol] 1.09 mg/dL Normal 0.70-1.[address] [facility] Comment on above: Order Comment: 'TROP ' Serial specimen #1, #2 or #3: 1 Result Comment: The validity of the calculated GFR GFRAA in patients over 70 years has not been determined. Clinical correlation is essential. Performed By: #### M 200.1000 #### [facility] [address] [place], [address] EST GFR - AA 87 mL/min Normal >60 [facility] Comment on above: Order Comment: 'TROP ' Serial specimen #1, #2 or #3: 1 Result Comment: Afri can Romanian GFR Calc Performed By: #### M 200.1000 #### [facility] [address] [place], [address] GAP 8 Normal 5-15 [facility] Comment on above: Order Comment: 'TROP ' Serial specimen #1, #2 or #3: 1 Performed By: #### M 200.1000 #### [facility] [address] [place], [address] GFR/1.73 sq M.predicted among non-blacks MDRD (S/P/Bld) [Vol rate/Area] 72 mL/min/{1.73_m2} Normal >60 [facility] Comment on above: Order Comment: 'TROP ' Serial specimen #1, #2 or #3: 1 Result Comment: Non- GFR Calc Performed By: #### M 200.1000 #### [facility] [address] [place], [address] Glucose [Mass/Vol] 116 mg/dL High 74-106 [facility] Comment on above: Order Comment: 'TROP ' Serial specimen #1, #2 or #3: 1 Result Comment: Fast ing Glucose result from 100 to 125 mg/dL suggests IMPAIRED HOMEOSTASIS per A.D.A. criteria. Performed By: #### M 200.1000 #### [facility] [address] [place], [address] Potassium [Moles/Vol] 3.3 mmol/L Low 3.5-5.[address] [facility] Comment on above: Order Comment: 'TROP ' Serial specimen #1, #2 or #3: 1 Performed By: #### M 200.1000 #### [facility] [address] [place], [address] Sodium [Moles/Vol] 135 mmol/L Low 136-145 [facility] Comment on above: Order Comment: 'TROP ' Serial specimen #1, #2 or #3: 1 Performed By: #### M 200.1000 #### [facility] [address] [place], [address] Urea nitrogen [Mass/Vol] 11 mg/dL Normal 7-18 [facility] Comment on above: Order Comment: 'TROP ' Serial specimen #1, #2 or #3: 1 Performed By: #### M 200.1000 #### [facility] [address] [place], [address] CBC W/Diff, Automatedon 06-0 4-2023 Absolute Lymph 1.20 X10 3/uL Normal 0.83-4.51 [facility] Comment on above: Performed By: #### L 300.8000, L501.4020, L100.0100, L500.2500, L503.6005 #### [facility] [address] [place], [address] Absolute Neut 4.9 X10 3/uL Normal 2.0-7.7 [facility] Comment on above: Performed By: #### L 300.8000, L501.4020, L100.0100, L500.2500, L503.6005 #### [facility] [address] [place], [address] Basophils/100 WBC (Bld) 0.4 % Normal 0-1 [facility] Comment on above: Performed By: #### L 300.8000, L501.4020, L100.0100, L500.2500, L503.6005 #### [facility] [address] [place], [address] Eosinophils/100 WBC (Bld) 0.1 % Normal 0-5 [facility] Comment on above: Performed By: #### L 300.8000, L501.4020, L100.0100, L500.2500, L503.6005 #### [facility] [address] [place], [address] Erythrocyte distribution width (RBC) [Ratio] 12.6 % Normal 11.6-14.6 [facility] Comment on above: Performed By: #### L 300.8000, L501.4020, L100.0100, L500.2500, L503.6005 #### [facility] [address] [place], [address] Hematocrit (Bld) [Volume fraction] 37.8 % Low 40-54 [facility] Comment on above: Performed By: #### L 300.8000, L501.4020, L100.0100, L500.2500, L503.6005 #### [facility] [address] [place], [address] Hemoglobin (Bld) [Mass/Vol] 12.8 g/dL Low 13.0-16.5 [facility] Comment on above: Performed By: #### L 300.8000, L501.4020, L100.0100, L500.2500, L503.6005 #### [facility] [address] [place], [address] IG% 0.400 Normal 0.0-0.9 [facility] Comment on above: Result Comment: IG% - Immature Granulocytes (promyelocytes, myelocytes and metamyelocytes) > 1% indicates that a LEFT SHIFT is Present. Performed By: #### L 300.8000, L501.4020, L100.0100, L500.2500, L503.6005 #### [facility] [address] [place], [address] Lymphocytes/100 WBC (Bld) 16.3 % Low 19-41 [facility] Comment on above: Performed By: #### L 300.8000, L501.4020, L100.0100, L500.2500, L503.6005 #### [facility] [address] [place], [address] MCH (RBC) [Entitic mass] 31.3 pg Normal 27.0-32.0 [facility] Comment on above: Performed By: #### L 300.8000, L501.4020, L100.0100, L500.2500, L503.6005 #### [facility] [address] [place], [address] MCHC (RBC) [Mass/Vol] 33.9 g/dL Normal 32-[address] [facility] Comment on above: Performed By: #### L 300.8000, L501.4020, L100.0100, L500.2500, L503.6005 #### [facility] [address] [place], [address] MCV (RBC) [Entitic vol] 92.4 fL Normal 80-94 [facility] Comment on above: Performed By: #### L 300.8000, L501.4020, L100.0100, L500.2500, L503.6005 #### [facility] [address] [place], [address] Monocytes/100 WBC (Bld) 16.3 % High 0-10 [facility] Comment on above: Performed By: #### L 300.8000, L501.4020, L100.0100, L500.2500, L503.6005 #### [facility] [address] [place], [address] Neutrophils/100 WBC (Bld) 66.5 % Normal 47-70 [facility] Comment on above: Performed By: #### L 300.8000, L501.4020, L100.0100, L500.2500, L503.6005 #### [facility] [address] [place], [address] Nucleated RBC (Bld) [#/Vol] 0 10*3/uL Normal 0-5 [facility] Comment on above: Performed By: #### L 300.8000, L501.4020, L100.0100, L500.2500, L503.6005 #### [facility] [address] [place], [address] Platelet mean volume (Bld) [Entitic vol] 9.4 fL Normal 6.2-12.0 [facility] Comment on above: Performed By: #### L 300.8000, L501.4020, L100.0100, L500.2500, L503.6005 #### [facility] [address] [place], [address] Platelets (Bld) [#/Vol] 269 10*3/uL Normal 150-450 [facility] Comment on above: Performed By: #### L 300.8000, L501.4020, L100.0100, L500.2500, L503.6005 #### [facility] [address] [place], [address] RBC (Bld) [#/Vol] 4.09 10*6/uL Low 4.6-6.2 [facility] Comment on above: Performed By: #### L 300.8000, L501.4020, L100.0100, L500.2500, L503.6005 #### [facility] [address] [place], [address] RDW SD 41.9 fl Normal 35.1-43.9 [facility] Comment on above: Performed By: #### L 300.8000, L501.4020, L100.0100, L500.2500, L503.6005 #### [facility] [address] [place], [address] WBC (Bld) [#/Vol] 7.4 10*3/uL Normal 4.4-11.0 [facility] Comment on above: Performed By: #### L 300.8000, L501.4020, L100.0100, L500.2500, L503.6005 #### [facility] [address] [place], [address] Chest 1 View (Portable)on Chest 1 View (Portable) [facility] Imaging Services [address] [place] [address] Chest 1 View (Portable) MR#: [id number] Acct: [id number] Name: TRACI LIMON Rep #: [id number] : 1955 M 68 From: Ifeanyi fonseca MD PCP: Care Physician,No Primary Status: REG ER Study: Chest 1 View (Portable) Date of Exam: 11/19/23 Exam# [id number] Ordering Dr: Matthew German DO [id number] STUDY: X-RAY CHEST REASON FOR EXAM: Male, 68 years old. cough, dyspnea TECHNIQUE: Single AP portable view of the chest. COMPARISON: None. FINDINGS: EKG electrodes are seen. The lungs are clear and expanded. There is no demonstrated pleural abnormality. Normal size heart. Normal mediastinum and santi. Normal visualized pulmonary arteries. Normal visualized aortic arch and descending thoracic aorta. There are diffuse degenerative changes of the visualized thoracic spine. Normal visualized ribs, clavicles, and shoulders. There is no demonstrated abnormality of the visualized soft tissue structures of the upper abdomen. RAD/Chest 1 View (Portable) IMPRESSION: Normal x-ray examination of the chest. Electronically Signed: Ifeanyi Allan MD at 12:16 EDT , CC: Dr. 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 Performed By: #### M 200.1000 #### [facility] [address] [facility] [place], [address] Emergency Department Summary on 11-19-2023 Emergency Department Summary [facility] Medical Records Department [address] [place] [address] Emergency Department Summary 11/19/23 MR#: [id number] Acct: [id number] Name: TRACI LIMON Rep #: [id number] : 1955 68 From: Matthew German DO PCP: Care Physician,No Primary Status:DEP ER Location: ED HPI History of Present Illness Chief Complaint: General Illness Detail of Chief Complaint: Not feeling well for 4 days Narrative Narrative: Patient presents the emergency department complaint not feeling well for the last 4 days. Patient states that he just got back from [place] 4 days ago. He woke up the next morning with a scratchy throat and a cough. He has had sweats. He has been somewhat lightheaded and dizzy. Cough at times productive of some yellow phlegm. He denies chest pain. Has had some intermittent shortness of breath. Patient is a diabetic but states his blood sugars have been good and his last check was today and it was 117. [facility] Medical History (Updated 11/19/23 @ 12:[address] Matthew German, DO) Wears glasses Diabetes Insulin dependent diabetes mellitus High cholesterol Injury of head and neck Colon polyps Mixed hyperlipidemia Hypertension Home Medications ???Medication ???Instructions ???Recorded ???Last Taken ???Type aspirin 81 mg chewable tablet 81 mg PO DAILY 10/19/21 11/28/21 History atorvastatin 10 mg tablet 10 mg PO QHS 10/19/21 Unknown History insulin aspar prt-insulin aspart 1 sliding scale dose subcut 10/19/21 Unknown History 100 unit/mL (70-30) subcutaneous USEASDIRECTD soln (Novolog Mix 70-30 U-100 Insuln) insulin glargine 100 unit/mL (3 66 unit subcut 0800 10/19/21 12/01/21 History mL) subcutaneous pen (Basaglar KwikPen U-100 Insulin) metformin 500 mg tablet 1,000 mg PO BID 10/19/21 Unknown History ferrous sulfate 325 mg (65 mg 325 mg PO DAILY 11/28/21 Unknown History iron) tablet lisinopril 20 1 tab PO DAILY 11/28/21 12/01/21 History mg-hydrochlorothiazi de 25 mg tablet semaglutide 1 mg/dose (4 mg/3 mL) 1 mg subcut QWEEK 11/19/23 Unknown History subcutaneous pen injector (Ozempic) Allergy/AdvReac Type Severity Reaction Status Date / Time No Known Allergies Allergy Verified 12/01/21 08:49 Surgical History Hx of colonoscopy Hx of surgical procedure Hx of total knee replacement Hx of tonsillectomy Social History Smoking Status: Never smoker ROS ROS ED Review of Systems ROS Unobtainable: other Constitutional Constitutional ED: Reports lethargy; Denies chills, fever(s), sweats or weight loss Eyes Eyes: Denies blurry vision, change in vision or diplopia ENT ENT ED: Reports sore throat; Denies rhinorrhea Cardiovascular Cardiovascular: Reports racing heartbeat; Denies chest pain or orthopnea Respiratory/Chest Respiratory/Chest: Reports cough, dyspnea, dyspnea on exertion and sputum; Denies orthopnea Gastrointestinal Gastrointestinal: Denies abdominal pain, diarrhea, nausea or vomiting Genitourinary Genitourinary ED: Denies dysuria, hematuria or urinary frequency Musculoskeletal Musculoskeletal: Denies arthralgias, back pain, myalgias or neck pain Integumentary Denies abscess, Abrasions or rash Neurologic Neurologic: Denies headache(s) or weakness Psychiatric Psychiatric: Denies anxiety, depression or suicidal thoughts Endocrine Endocrinology: Denies polydipsia, polyphagia or polyuria Hematologic/Lymphati c Hematologic/Lymphati c: Denies easy bleeding, easy bruising or lymphadenopathy Allergic/Immunologic Allergic/Immunologic ED: Denies mouth swelling, tongue swelling or urticaria EXAM Physical Exam Const Vital Signs: 11/19/23 10:57 11/19/23 11:42 11/19/23 12:25 Temperature 96.4 F L Temperature Source Temporal Pulse Rate 153 H 130 H Respiratory Rate 26 H 16 Respiratory Effort Normal Non-Labored Respiratory Pattern Normal Normal Blood Pressure 156/83 H Blood Pressure Mean 107 Pulse Ox 98 Oxygen Delivery Method Room Air Positive well nourished and well developed General Appearance ED: well developed and NAD HEENT Reports TM's clear and moist mucous membranes normocephalic and atraumatic; Negative for trauma or tenderness Tympanic Membrane ED: Yes TM's clear Eyes PERRL and EOMs intact bilaterally General Eye ED: Negative for pale conjunctiva or scleral icterus Neck no lymphadenopathy, supple and no JVD General: Negative for tenderness Chest Wall inspection of chest normal and palpation of chest normal Chest: Negative for tenderness Resp normal respiratory effort and clear to auscultation bilaterally Effort and Inspection: Negative for respiratory distress or pain with movement Auscultation: Negative for rhonchi, wheezes or diminished lung sounds Card (more content not included)... Normal [facility] L501.4020on 11-19-2023 TROPONIN-I HS 4 pg/mL Normal 3.0-78.0 [facility] Comment on above: Order Comment: 'TROP ' Serial specimen #1, #2 or #3: 1 Result Comment: Danny real Note: New Test Units and Gender Specific Reference Ranges. For more information see Policy Stat Procedure [place] High Sensitivity Troponin (TNIH) and attachments. Performed By: #### M 200.1000 #### [facility] [place], [address] Lactic Acidon 11-19-2023 Lactate [Moles/Vol] 2.0 mmol/L Normal 0.4-1.9 [facility] Comment on above: Order Comment: Y Result Comment: Crit ical Result(s) Called at: 12:19:58 11/19/2023 by: Anjana Valadez. Results read back by same. Performed By: #### L 300.8000, L501.4020, L100.0100, L500.2500, L503.6005 #### [facility] [address] [place], [address] M100.678on 11-19-2023 M100.678 Copy of report sent to Infection Control Printer [id number] 11/19/23 1224 VSICK. SARS-CoV-2 (COVID 19) Positive A INFLUENZA A Negative INFLUENZA B Negative RSV PCR Negative COV Normal [facility] Comment on above: Performed By: #### M 100.678 #### [facility] [address] [place], [place], [address] HEMOGLOBIN A1C (POC)on 09-30 HbA1c (Bld) [Mass fraction] 7.0 % Abnormal 4.3 - 5.6 % [facility] CBC (INCLUDES DIFF/PLT)on Basophils (Bld) [#/Vol] 0.021 10*3/uL Normal 0-200 [facility] Comment on above: Performed By: #### 1 0231, 6575 #### [facility] [address], [address] [place] [address] Corporate Tax Preparer: Shimon Foster MD Basophils/100 WBC (Bld) 0.2 % Normal [facility] Comment on above: Performed By: #### 1 0231, 8754 #### [facility] [address], [address] [place] [address] Corporate Tax Preparer: Shimon Foster MD Eosinophils (Bld) [#/Vol] 0 10*3/uL Low 15-500 [facility] Comment on above: Performed By: #### 1 0231, 6399 #### [facility] [address], [address] [place] [address] Corporate Tax Preparer: Shimon Foster MD Eosinophils/100 WBC (Bld) 0.0 % Normal [facility] Comment on above: Performed By: #### 1 0231, 6399 #### [facility] of [address], [address] [place] [address] Corporate Tax Preparer: Shimon Foster MD Erythrocyte distribution width (RBC) [Ratio] 13.4 % Normal 11.0-15.0 [facility] Comment on above: Performed By: #### 1 0231, 6399 #### [facility] [place] [address] Corporate Tax Preparer: Shimon Foster MD Hematocrit (Bld) [Volume fraction] 41.1 % Normal 38.5-50.0 [facility] Comment on above: Performed By: #### 1 0231, 6399 #### [facility] [place] [address] Corporate Tax Preparer: Shimon Foster MD Hemoglobin (Bld) [Mass/Vol] 13.7 g/dL Normal 13.2-17.1 [facility] Comment on above: Performed By: #### 1 0231, 6399 #### [facility] [place] [address] Corporate Tax Preparer: Shimon Foster MD Lymphocytes (Bld) [#/Vol] 3.585 10*3/uL Normal 850-3900 [facility] Comment on above: Performed By: #### 1 0231, 6399 #### [facility] [address], [address] [place] [address] Corporate Tax Preparer: Shimon Foster MD Lymphocytes/100 WBC (Bld) 33.5 % Normal [facility] Comment on above: Performed By: #### 1 0231, 6399 #### [facility] [place] [address] Corporate Tax Preparer: Shimon Foster MD MCH (RBC) [Entitic mass] 31.3 pg Normal 27.0-33.0 [facility] Comment on above: Performed By: #### 1 0231, 6399 #### [facility] [place] [address] Corporate Tax Preparer: Shimon Foster MD MCHC (RBC) [Mass/Vol] 33.3 g/dL Normal 32.0-36.[address] [facility] Comment on above: Performed By: #### 1 0231, 6399 #### [facility] [place] [address] Corporate Tax Preparer: Shimon Foster MD MCV (RBC) [Entitic vol] 93.8 fL Normal 80.0-100.0 [facility] Comment on above: Performed By: #### 1 0231, 6399 #### [facility] [place] [address] Corporate Tax Preparer: Shimon Foster MD Monocytes (Bld) [#/Vol] 0.781 10*3/uL Normal 200-950 [facility] Comment on above: Performed By: #### 1 0231, 6399 #### [facility] [place] [address] Corporate Tax Preparer: Shimon Foster MD Monocytes/100 WBC (Bld) 7.3 % Normal [facility] Comment on above: Performed By: #### 1 0231, 6399 #### [facility] [place] [address] Corporate Tax Preparer: Shimon Foster MD Neutrophils (Bld) [#/Vol] 6.313 10*3/uL Normal 2394-1988 [facility] Comment on above: Performed By: #### 1 0231, 6399 #### [facility] [place] [address] Corporate Tax Preparer: Shimon Foster MD Neutrophils/100 WBC (Bld) 59 % Normal [facility] Comment on above: Performed By: #### 1 0231, 6399 #### [facility] [place] [address] Corporate Tax Preparer: Shimon Foster MD Platelet mean volume (Bld) [Entitic vol] 9.1 fL Normal 7.5-12.5 [facility] Comment on above: Performed By: #### 1 0231, 6399 #### [facility] [place] [address] Corporate Tax Preparer: Shimon Foster MD Platelets (Bld) [#/Vol] 325 10*3/uL Normal 140-400 [facility] Comment on above: Performed By: #### 1 0231, 6399 #### [facility] [place] [address] Corporate Tax Preparer: Shimon Foster MD RBC (Bld) [#/Vol] 4.38 10*6/uL Normal 4.20-5.80 [facility] Comment on above: Performed By: #### 1 0231, 6399 #### [facility] [place] [address] Corporate Tax Preparer: Shimon Foster MD WBC (Bld) [#/Vol] 10.7 10*3/uL Normal 3.8-10.8 [facility] Comment on above: Performed By: #### 1 0231, 6399 #### [facility] [place] [address] Corporate Tax Preparer: Shimon Foster MD [facility] [place] 01-31-2022 Albumin [Mass/Vol] 4.8 g/dL Normal 3.6-5.1 [facility] Comment on above: Order Comment: 0 0 0 Performed By: #### 1 0231, 6399 #### [facility] [place] [address] Corporate Tax Preparer: Shimon Foster MD Albumin/Globulin [Mass ratio] 1.6 {ratio} Normal 1.0-2.5 [facility] Comment on above: Order Comment: 0 0 0 Performed By: #### 1 0231, 6399 #### [facility] [address], [address] [place] [address] Corporate Tax Preparer: Shimon Foster MD ALP [Catalytic activity/Vol] 48 U/L Normal 35-144 [facility] Comment on above: Order Comment: 0 0 0 Performed By: #### 1 0231, 6399 #### [facility] [address], [address] [place] [address] Corporate Tax Preparer: Shimon Foster MD ALT [Catalytic activity/Vol] 26 U/L Normal 9-46 [facility] Comment on above: Order Comment: 0 0 0 Performed By: #### 1 0231, 6399 #### [facility] [address], [address] [place] [address] Corporate Tax Preparer: Shimon Foster MD AST [Catalytic activity/Vol] 21 U/L Normal 10-35 [facility] Comment on above: Order Comment: 0 0 0 Performed By: #### 1 0231, 6399 #### [facility] [address], [address] [place] [address] Corporate Tax Preparer: Shimon Foster MD Bilirubin [Mass/Vol] 0.4 mg/dL Normal 0.2-1.2 [facility] Comment on above: Order Comment: 0 0 0 Performed By: #### 1 0231, 6399 #### [facility] [address], [address] [place] [address] Corporate Tax Preparer: Shimon Foster MD BUN/CREATININE RATIO NOT APPLICABLE Normal 6-22 [facility] Comment on above: Order Comment: 0 0 0 Performed By: #### 1 0231, 6399 #### [facility] [address], [address] [place] [address] Corporate Tax Preparer: Shimon Foster MD Calcium [Mass/Vol] 10.2 mg/dL Normal 8.6-10.3 [facility] Comment on above: Order Comment: 0 0 0 Performed By: #### 1 0231, 6399 #### [facility] [address], [address] [place] [address] Corporate Tax Preparer: Shimon Foster MD Chloride [Moles/Vol] 99 mmol/L Normal 98-110 [facility] Comment on above: Order Comment: 0 0 0 Performed By: #### 1 0231, 6399 #### [facility] [address], [address] [place] [address] Corporate Tax Preparer: Shimon Foster MD CO2 [Moles/Vol] 27 mmol/L Normal 20-32 [facility] Comment on above: Order Comment: 0 0 0 Performed By: #### 1 0231, 6399 #### [facility] [address], [address] [place] [address] Corporate Tax Preparer: Shimon Foster MD Creatinine [Mass/Vol] 0.82 mg/dL Normal 0.70-1.[address] [facility] Comment on above: Order Comment: 0 0 0 Performed By: #### 1 023, 6399 #### [facility] [address], [address] [place] [address] Corporate Tax Preparer: Shimon Foster MD GFR/1.73 sq M.predicted among non-blacks MDRD (S/P/Bld) [Vol rate/Area] 98 mL/min/{1.73_m2} Normal > OR = 60 [facility] Comment on above: Order Comment: 0 0 0 Result Comment: The eGFR is based on the CKD-EPI 202 equation. To calculate the new eGFR from a previous Creatinine or Cystatin C result, go to https://www.kidney.org/professionals/ kdoqi/gfr%5Fcalculator Performed By: #### 1 023, 6399 #### [facility] [address], [address] [place] [address] Corporate Tax Preparer: Shimon Foster MD Globulin (S) [Mass/Vol] 3.0 g/dL Normal 1.9-3.7 [facility] Comment on above: Order Comment: 0 0 0 Performed By: #### 1 023, 6399 #### [facility] [address], [address] [place] [address] Corporate Tax Preparer: Shimon Foster MD Glucose [Mass/Vol] 108 mg/dL High 65-99 [facility] Comment on above: Order Comment: 0 0 0 Result Comment: Fasting reference interval For someone without known diabetes, a glucose value between 100 and 125 mg/dL is consistent with prediabetes and should be confirmed with a follow-up test. Performed By: #### 1 0231, 6399 #### [facility] [place] [address] Corporate Tax Preparer: Shimon Foster MD Potassium [Moles/Vol] 3.7 mmol/L Normal 3.5-5.[address] [facility] [address] [facility] Comment on above: Order Comment: 0 0 0 Performed By: #### 1 0231, 6399 #### [facility] [place] [address] Corporate Tax Preparer: Shimon Foster MD Protein [Mass/Vol] 7.8 g/dL Normal 6.1-8.1 [facility] Comment on above: Order Comment: 0 0 0 Performed By: #### 1 0231, 6399 #### [facility] [place] [address] Corporate Tax Preparer: Shimon Foster MD Sodium [Moles/Vol] 136 mmol/L Normal 135-146 [facility] Comment on above: Order Comment: 0 0 0 Performed By: #### 1 0231, 6399 #### [facility] [place] [address] Corporate Tax Preparer: Shimon Foster MD Urea nitrogen [Mass/Vol] 15 mg/dL Normal 7-25 [facility] Comment on above: Order Comment: 0 0 0 Performed By: #### 1 0231, 6399 #### [facility] [place] [address] Corporate Tax Preparer: Shimon Foster MD HEMOGLOBIN A1con 01-31-2022 HEMOGLOBIN A1c 8.3 % of total Hgb High <5.7 est Diagnostics Comment on above: Result Comment: For someone without known diabetes, a hemoglobin A1c value of 6.5% or greater indicates that they may have diabetes and this should be confirmed with a follow-up test. For someone with known diabetes, a value <7% indicates that their diabetes is well controlled and a value greater than or equal to 7% indicates suboptimal control. A1c targets should be individualized based on duration of diabetes, age, comorbid conditions, and other considerations. Currently, no consensus exists regarding use of hemoglobin A1c for diagnosis of diabetes for children. NO COLLECTION DATE RECEIVED. WE HAVE USED THE DATE THE SPECIMEN WAS RECEIVED BY THIS LABORATORY THE COLLECTION DATE. IF THIS IS INCORRECT, PLEASE CONTACT CLIENT SERVICES. PHONE NUMBER: [phone] Performed By: #### 4 2378, 1919 #### [facility] [address] [facility], [address] [place] [address] Corporate Tax Preparer: Shimon Foster MD CR Chest PA/LATon 01-24-2022 CR Chest PA/LAT Patient Name: TRACI LIMON Diagnostic Radiology ACCESSION EXAM DATE/TIME PROCEDURE ORDERING PROVIDER [id number] 01/24/2022 10:31 EDT CR Chest PA and LAT UNASSIGNED, UNASSIGNED CPT code 04435 Reason For Exam (CR Chest PA and LAT) bronchopneumonia Report EXAM TYPE: EXAM TYPE: RADIOLOGIC EXAMINATION, CHEST, 2 VIEWS, FRONTAL AND LATERAL (CXR 2 Views) EXAM DATE AND TIME: 01/24/2022 10:31 AM EDT INDICATION: Bronchial pneumonia COMPARISON: None available. TECHNIQUE: Frontal and lateral views of the thorax were obtained and reviewed. Special views: None. FINDINGS/IMPRESSION: 1. Lungs: No definite consolidation or pulmonary edema. If there is continued concern, chest CT can be performed. 2. Pleura: No pneumothorax or pleural effusions. 3. Heart and mediastinum: Normal cardiomediastinal contours. 4. Osseous structures: Thoracic spondylosis. Report Dictated on Final Dictating Physician: MD ANDERSON NEIL Signed Date and Time: 01/24/2022 11:42 am Signed by: MD ANDERSON NEIL Transcribed Date and Time: 01/24/2022 11:43 Normal [facility] XR CHEST (2 VW)on 08-10-2022 Patient Name[id number] ACCESSION EXAM DATE/TIME PROCEDURE ORDERING PROVIDER [id number] 01/24/2022 10:31 EDT CR Chest PA & LAT UNASSIGNED, UNASSIGNED CPT code 78783 Reason For Exam (CR Chest PA & LAT) bronchopneumonia Report EXAM TYPE: EXAM TYPE: RADIOLOGIC EXAMINATION, CHEST, 2 VIEWS, FRONTAL AND LATERAL (CXR 2 Views) EXAM DATE AND TIME: 01/24/2022 10:31 AM EDT INDICATION: Bronchial pneumonia COMPARISON: None available. TECHNIQUE: Frontal and lateral views of the thorax were obtained and reviewed. Special views: None. FINDINGS/IMPRESSION: 1. Lungs: No definite consolidation or pulmonary edema. If there is continued concern, chest CT can be performed. 2. Pleura: No pneumothorax or pleural effusions. 3. Heart and mediastinum: Normal cardiomediastinal contours. 4. Osseous structures: Thoracic spondylosis. Report Dictated on --- Final --- Dictating Physician: MD ANDERSON NEIL Signed Date and Time: 01/24/2022 11:42 am Signed by: MD ANDERSON NEIL Transcribed Date and Time: 01/24/2022 11:43 [facility] Otto Anderson MD - 01/24/2022 Patient Name: TRACI LIMON Diagnostic Radiology ACCESSION EXAM DATE/TIME PROCEDURE ORDERING PROVIDER [id number] 01/24/2022 10:31 EDT CR Chest PA & LAT UNASSIGNED, UNASSIGNED CPT code 24658 Reason For Exam (CR Chest PA & LAT) bronchopneumonia Report EXAM TYPE: EXAM TYPE: RADIOLOGIC EXAMINATION, CHEST, 2 VIEWS, FRONTAL AND LATERAL (CXR 2 Views) EXAM DATE AND TIME: 01/24/2022 10:31 AM EDT INDICATION: Bronchial pneumonia COMPARISON: None available. TECHNIQUE: Frontal and lateral views of the thorax were obtained and reviewed. Special views: None. FINDINGS/IMPRESSION: 1. Lungs: No definite consolidation or pulmonary edema. If there is continued concern, chest CT can be performed. 2. Pleura: No pneumothorax or pleural effusions. 3. Heart and mediastinum: Normal cardiomediastinal contours. 4. Osseous structures: Thoracic spondylosis. Report Dictated on --- Final --- Dictating Physician: MD ANDERSON NEIL Signed Date and Time: 01/24/2022 11:42 am Signed by: MD ANDERSON NEIL Transcribed Date and Time: 01/24/2022 11:43 [facility] Work Phone: Radiology Study observation (narrative) [facility] Work Phone: XR CHEST (2 VW)Ordered By: Davi Anderson on 01-24-2022 [facility] Work Phone: Glucose Glucometer (BldC) [M ass/Vol]on 12-01-2021 Glucose [Mass/Vol] 164 mg/dL 74-106 [facility] Work Phone: Comment on above: MANAGEMENT OF PATIEN T CARE PER NURSING PROTOCOL IRON, TIBC AND FERRITIN PANE Arnoldo 10-06-2021 % SATURATION 34 % (calc) Normal 20-48 [facility] Comment on above: Order Comment: 0 Performed By: #### 5 616 #### [facility] [place] [address] Corporate Tax Preparer: Shimon Foster MD Ferritin [Mass/Vol] 283 ng/mL Normal 24-380 [facility] Comment on above: Order Comment: 0 Performed By: #### 5 616 #### [facility] [place] [address] Corporate Tax Preparer: Shimon Foster MD IRON BINDING CAPACITY 309 mcg/dL (calc) Normal 250-425 [facility] Comment on above: Order Comment: 0 Performed By: #### 5 616 #### [facility] [place] [address] Corporate Tax Preparer: Shimon Foster MD IRON, TOTAL 105 mcg/dL Normal 50-180 [facility] Comment on above: Order Comment: 0 Performed By: #### 5 616 #### [facility] [place] [address] Corporate Tax Preparer: Shimon Foster MD VITAMIN B12/FOLATE, SERUM GOPAL Ndiayedavi 10-06-2021 Cobalamin (Vitamin B12) [Mass/Vol] 370 pg/mL Normal 200-1100 [facility] Comment on above: Order Comment: 0 Result Comment: Please Note: Although the reference range for vitamin B12 is 200-1100 pg/mL, it has been reported that between 5 and 10% of patients with values between 200 and 400 pg/mL may experience neuropsychiatric and hematologic abnormalities due to occult B12 deficiency; less than 1% of patients with values above 400 pg/mL will have symptoms. Performed By: #### 7 065 #### [facility] [place] [address] Corporate Tax Preparer: Shimon Foster MD Folate [Mass/Vol] 11.8 ng/mL Normal [facility] Comment on above: Order Comment: 0 Result Comment: Refe rence Range Low: <3.4 Borderline: 3.4-5.4 Normal: >5.4 Performed By: #### 7 065 #### [facility] [place] [address] Corporate Tax Preparer: Shimon Foster MD CBC (INCLUDES DIFF/PLT)on Basophils (Bld) [#/Vol] 0.03 10*3/uL Normal 0-200 [facility] Comment on above: Performed By: #### 1 7306, 16161, 9251 #### [facility] [place] [address] Corporate Tax Preparer: Shimon Foster MD Basophils/100 WBC (Bld) 0.4 % Normal [facility] Comment on above: Performed By: #### 1 7306, 76761, 5849 #### [facility] [place] [address] Corporate Tax Preparer: Shimon Foster MD Eosinophils (Bld) [#/Vol] 0.091 10*3/uL Normal 15-500 [facility] Comment on above: Performed By: #### 1 7306, 43538, 6399 #### [facility] of [address], [address] [place] [address] Corporate Tax Preparer: Shimon Foster MD Eosinophils/100 WBC (Bld) 1.2 % Normal [facility] Comment on above: Performed By: #### 1 7306, 60068, 6399 #### [facility] of [address], [address] [place] [address] Corporate Tax Preparer: Shimon Foster MD Erythrocyte distribution width (RBC) [Ratio] 13.0 % Normal 11.0-15.0 [facility] Comment on above: Performed By: #### 1 7306, , 6399 #### [facility] of [place] [address] Corporate Tax Preparer: Shimon Foster MD Hematocrit (Bld) [Volume fraction] 36.6 % Low 38.5-50.0 [facility] Comment on above: Performed By: #### 1 7306, , 6399 #### [facility] of [place] [address] Corporate Tax Preparer: Shimon Foster MD Hemoglobin (Bld) [Mass/Vol] 12.3 g/dL Low 13.2-17.1 [facility] Comment on above: Performed By: #### 1 7306, , 6399 #### [facility] of [place] [address] Corporate Tax Preparer: Shimon Foster MD Lymphocytes (Bld) [#/Vol] 3.048 10*3/uL Normal 850-3900 [facility] Comment on above: Performed By: #### 1 7306, 73584, 6399 #### [facility] of [place] [address] Corporate Tax Preparer: Shimon Foster MD Lymphocytes/100 WBC (Bld) 40.1 % Normal [facility] Comment on above: Performed By: #### 1 7306, 48976, 6399 #### [facility] [place] [address] Corporate Tax Preparer: Shimon Foster MD MCH (RBC) [Entitic mass] 32.2 pg Normal 27.0-33.0 [facility] Comment on above: Performed By: #### 1 7306, 29591, 6399 #### [facility] of [place] [address] Corporate Tax Preparer: Shimon Foster MD MCHC (RBC) [Mass/Vol] 33.6 g/dL Normal 32.0-36.[address] [facility] Comment on above: Performed By: #### 1 7306, 53968, 6399 #### [facility] of [place] [address] Corporate Tax Preparer: Shimon Foster MD MCV (RBC) [Entitic vol] 95.8 fL Normal 80.0-100.0 [facility] Comment on above: Performed By: #### 1 7306, 13120, 6399 #### [facility] of [place] [address] Corporate Tax Preparer: Shimon Foster MD Monocytes (Bld) [#/Vol] 0.699 10*3/uL Normal 200-950 [facility] Comment on above: Performed By: #### 1 7306, 38173, 6399 #### [facility] of [place] [address] Corporate Tax Preparer: Shimon Foster MD Monocytes/100 WBC (Bld) 9.2 % Normal [facility] Comment on above: Performed By: #### 1 7306, 89385, 6399 #### [facility] of [place] [address] Corporate Tax Preparer: Shimon Foster MD Neutrophils (Bld) [#/Vol] 3.732 10*3/uL Normal 0407-0096 [facility] Comment on above: Performed By: #### 1 7306, 00250, 6399 #### [facility] of [place] [phone] Corporate Tax Preparer: Shimon Foster MD Neutrophils/100 WBC (Bld) 49.1 % Normal [facility] Comment on above: Performed By: #### 1 73, 57815, 6399 #### [facility] of [place] [address] Corporate Tax Preparer: Shimon Foster MD Platelet mean volume (Bld) [Entitic vol] 9.3 fL Normal 7.5-12.5 [facility] Comment on above: Performed By: #### 1 7306, , 6399 #### [facility] of [place] [address] Corporate Tax Preparer: Shimon Foster MD Platelets (Bld) [#/Vol] 296 10*3/uL Normal 140-400 [facility] Comment on above: Performed By: #### 1 7305, , 6399 #### [facility] [address], [address] [place] [address] Corporate Tax Preparer: Shimon Foster MD RBC (Bld) [#/Vol] 3.82 10*6/uL Low 4.20-5.80 [facility] Comment on above: Performed By: #### 1 7305, 46358, 6399 #### [facility] of [place] [address] Corporate Tax Preparer: Shimon Foster MD WBC (Bld) [#/Vol] 7.6 10*3/uL Normal 3.8-10.8 [facility] Comment on above: Performed By: #### 1 7305, 74014, 6399 #### [facility] of [place] [address] Corporate Tax Preparer: Shimon Foster MD COMPREHENSIVE METABOLIC PANE [place] 09-21-2021 Albumin [Mass/Vol] 4.6 g/dL Normal 3.6-5.1 [facility] Comment on above: Order Comment: 0 0 0 0 Performed By: #### 1 7305, 70878, 6399 #### [facility] of [place] [address] [place] [address] Corporate Tax Preparer: Shimon Foster MD Albumin/Globulin [Mass ratio] 1.6 {ratio} Normal 1.0-2.5 [facility] Comment on above: Order Comment: 0 0 0 0 Performed By: #### 1 7306, 42990, 6399 #### [facility] [address], [address] [place] [address] Corporate Tax Preparer: Shimon Foster MD ALP [Catalytic activity/Vol] 44 U/L Normal 35-144 [facility] Comment on above: Order Comment: 0 0 0 0 Performed By: #### 1 7306, 39776, 6399 #### [facility] [address], [address] [place] [address] Corporate Tax Preparer: Shimon Foster MD ALT [Catalytic activity/Vol] 25 U/L Normal 9-46 [facility] Comment on above: Order Comment: 0 0 0 0 Performed By: #### 1 7306, 13943, 6399 #### [facility] of [address], [address] [place] [address] Corporate Tax Preparer: Shimon Foster MD AST [Catalytic activity/Vol] 35 U/L Normal 10-35 [facility] Comment on above: Order Comment: 0 0 0 0 Performed By: #### 1 7306, 70722, 6399 #### [facility] [place] [address] Corporate Tax Preparer: Shimon Foster MD Bilirubin [Mass/Vol] 0.3 mg/dL Normal 0.2-1.2 Ques t Diagn[facility] Comment on above: Order Comment: 0 0 0 0 Performed By: #### 1 7306, 40000, 6399 #### [facility] of [place] [address] Corporate Tax Preparer: Shimon Foster MD BUN/CREATININE RATIO NOT APPLICABLE Normal 6-22 [facility] Comment on above: Order Comment: 0 0 0 0 Performed By: #### 1 7306, 22203, 6399 #### [facility] of [address], [address] [place] [address] Corporate Tax Preparer: Shimon Foster MD Calcium [Mass/Vol] 10.0 mg/dL Normal 8.6-10.3 [facility] Comment on above: Order Comment: 0 0 0 0 Performed By: #### 1 7306, 94863, 6399 #### [facility] [address], [address] [place] [address] Corporate Tax Preparer: Shimon Foster MD Chloride [Moles/Vol] 101 mmol/L Normal 98-110 [facility] t Diagnostics Comment on above: Order Comment: 0 0 0 0 Performed By: #### 1 7306, 35580, 2299 #### [facility] [place] [address] Corporate Tax Preparer: Shimon Foster MD CO2 [Moles/Vol] 27 mmol/L Normal 20-32 [facility] Comment on above: Order Comment: 0 0 0 0 Performed By: #### 1 73, 44638, 9099 #### [facility] [place] [address] Corporate Tax Preparer: Shimon Foster MD Creatinine [Mass/Vol] 0.90 mg/dL Normal 0.70-1.[address] [facility] [address] [facility] Comment on above: Order Comment: 0 0 0 0 Result Comment: For patients >49 years of age, the reference limit for Creatinine is approximately 13% higher for people identified as -Romanian. Performed By: #### 1 73, 65618, 8399 #### [facility] [place] [address] Corporate Tax Preparer: Shimon Foster MD eGFR NON-AFR. [place] 90 mL/min/1.73m2 Normal > OR = 60 [facility] Comment on above: Order Comment: 0 0 0 0 Performed By: #### 1 73, 96784, 3299 #### [facility] [place] [address] Corporate Tax Preparer: Shimon Foster MD GFR/1.73 sq M.predicted among blacks MDRD (S/P/Bld) [Vol rate/Area] 104 mL/min/{1.73_m2} Normal > OR = 60 [facility] Comment on above: Order Comment: 0 0 0 0 Performed By: #### 1 7306, 39459, 6499 #### [facility] [place] [address] Corporate Tax Preparer: Shimon Foster MD Globulin (S) [Mass/Vol] 2.9 g/dL Normal 1.9-3.7 [facility] Comment on above: Order Comment: 0 0 0 0 Performed By: #### 1 7306, 23683, 8599 #### [facility] [place] [address] Corporate Tax Preparer: Shimon Foster MD Glucose [Mass/Vol] 75 mg/dL Normal 65-99 [facility] Comment on above: Order Comment: 0 0 0 0 Result Comment: Fasting reference interval Performed By: #### 1 7306, 97962, 1199 #### [facility] [place] [address] Corporate Tax Preparer: Shimon Foster MD Potassium [Moles/Vol] 4.0 mmol/L Normal 3.5-5.[address] [facility] [address] [facility] Comment on above: Order Comment: 0 0 0 0 Performed By: #### 1 7306, 55510, 1999 #### [facility] [place] [address] Corporate Tax Preparer: Shimon Foster MD Protein [Mass/Vol] 7.5 g/dL Normal 6.1-8.1 [facility] Comment on above: Order Comment: 0 0 0 0 Performed By: #### 1 7306, 66300, 2899 #### [facility] [place] [address] Corporate Tax Preparer: Shimon Foster MD Sodium [Moles/Vol] 137 mmol/L Normal 135-146 [facility] Comment on above: Order Comment: 0 0 0 0 Performed By: #### 1 7306, 66622, 5499 #### [facility] [address], [address] Corporate Tax Preparer: Shimon Foster MD Urea nitrogen [Mass/Vol] 14 mg/dL Normal 7-25 [facility] Comment on above: Order Comment: 0 0 0 0 Performed By: #### 1 7306, 18482, 6016 #### [facility] [address], [address] [place] [address] Corporate Tax Preparer: Shimon Foster MD PSA, TOTALon 09-21-2021 PSA, TOTAL 1.11 ng/mL Normal < OR = 4.00 [facility] Comment on above: Result Comment: The total PSA value from this assay system is standardized against the WHO standard. The test result will be approximately 20% lower when compared to the equimolar-standardized total PSA ([place]). Comparison of serial PSA results should be interpreted with this fact in mind. This test was performed using the Siemens chemiluminescent method. Values obtained from different assay methods cannot be used interchangeably. PSA levels, regardless of value, should not be interpreted as absolute evidence of the presence or absence of disease. Performed By: #### 1 7325, 46855, 8573 #### [facility] [address], [address] [place] [address] Corporate Tax Preparer: Shimon Foster MD VITAMIN D,25-OH,TOTAL,IAon 0 09-21-2021 VITAMIN D,25-OH,TOTAL,IA 17 ng/mL Low 30-100 [facility] Comment on above: Result Comment: Patria min D Status 25-OH Vitamin D: Deficiency: <20 ng/mL Insufficiency: 20 - 29 ng/mL Optimal: > or = 30 ng/mL For 25-OH Vitamin D testing on patients on D2-supplementation and patients for whom quantitation of D2 and D3 fractions is required, the QuestAssureD(TM) 25-OH VIT D, (D2,D3), LC/MS/MS is recommended: order code [id number] (patients >2yrs). See Note 1 Note 1 For additional information, please refer to http://education.[employer]/faq/VRX099 (This link is being provided for informational/ educational purposes only.) Performed By: #### 1 4807, 69711, 6106 #### [facility] [address], [address] [place] [address] Corporate Tax Preparer: Shimon Foster MD [facility] Nurse Visit (COVAMD) TRACI LIMON ([id number]) 1955 M Date Time Provider Department 11/01/20 2:40 PM COVID VACCINE [facility] During your visit today, we recorded the following information about you: Referring Provider: ZA FONG JR [[id number]] Allergies As of Date: 11/01/2020 (No Known Allergies) Date Reviewed: 10/03/2020 Reviewed by: Belkys Morales MA - Fully Assessed Order(s):Present SARS-COV-2 VACCINE 2D DOSE APPT [5060983] Order #: [id number] [place] COVID-19 VACCINE [[id number]] Order #: [id number] Prescriptions as of 11/01/2020 Sig: BASAGLANGLE CALLAWAYIKPEN U-100 INSULI* Inject 64 Units subcutaneousl* METFORMIN 1,000 MG TABLET TAKE 1 TABLET BY MOUTH TWICE * SILDENAFIL 100 MG TABLET Take 1 tablet by mouth as nee* LISINOPRIL 20 MG TABLET Take 1 tablet by mouth once d* LISINOPRIL 20 MG-HYDROCHLOROT* Take 1 tablet by mouth once d* INSULIN ASPART (U-100) 100 UN* Inject 16 Units subcutaneousl* ACETAMINOPHEN 500 MG TABLET Take 2 tablets by mouth every* PEN NEEDLE, DIABETIC 31 GAUGE* 8 mm, 4 times daily ATORVASTATIN 20 MG TABLET Take 1 tablet by mouth once d* COMPOUNDED PRESCRIPTION Use as directed once a day. OMEGA-3 FATTY ACIDS-VITAMIN E* Take 1 capsule by mouth once * ZINC 50 MG TABLET Take 50 mg by mouth twice vivi* ASPIRIN 81 MG TABLET,DELAYED * Take 81 mg by mouth once abundio* MULTIVITAMIN TABLET Take 1 tablet by mouth once d* Problem List As Of Date 11/01/2020 Noted Resolved Arthritis of knee, right [M17.11] 07/03/2010 10/08/2018 Arthritis of knee, left [M17.12] 07/03/2010 10/08/2018 Medial meniscus tear [S83.249A] 08/03/2010 10/08/2018 Obesity, Class I, BMI 30-34.9 [E66.9] 10/08/2018 Type 2 diabetes mellitus without complication, *10/08/2018 Hypertension, essential [I10] 10/08/2018 Hyperlipidemia, mixed [E78.2] 10/08/2018 Obesity, Class II, BMI 35-39.9 [E66.9] 03/26/2019 Type 2 diabetes mellitus without retinopathy (H*02/24/2020 Combined forms of age-related cataract of both *02/24/2020 Refractive error [H52.7] 02/24/2020 Posterior tibialis tendinitis of both lower ext*04/21/2020 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 FALL SCREENING: Has the patient had 2 falls in the last year or 1 fall with injury or currently using an Ambulatory Assistive Device (Walker, Cane, Wheelchair, Crutches, etc.)? Emergency Room Patient: Screened in ED PATIENT GENDER DATA: Male PATIENT RELEVANT IMPLANT DATA REVIEWED: Not Applicable RADIOLOGY DEPARTMENT: General X-ray: Exam(s) Completed: Chest X-Ray PERIPHERAL IV DATA: Not applicable SIGNED BY: RT Windy September 23, 2020 11:31 AM [facility] CBC and Differentialon 09-23 Abs Baso 0.03 k/uL Normal <0.11 [facility] Comment on above: Performed By: #### C BCDIF, CMP, MG1 #### [facility] [address] [place] [address] Abs [place] 0.55 k/uL Normal <0.87 [facility] Comment on above: Performed By: #### C BCDIF, CMP, MG1 #### [facility] [address] [place] [address] Abs Neut 3.01 k/uL Normal 1.45-7.50 [facility] Comment on above: Performed By: #### C BCDIF, CMP, MG1 #### [facility] [address] [place] [address] Absolute nRBC <0.01 Normal <0.01 [facility] Comment on above: Performed By: #### C BCDIF, CMP, MG1 #### [facility] [address] [place] [address] Basophils/100 WBC (Bld) 0.5 % Normal [facility] Comment on above: Performed By: #### C BCDIF, CMP, MG1 #### [facility] [address] [place] [address] DTYPE Auto Diff Normal [facility] Comment on above: Performed By: #### C BCDIF, CMP, MG1 #### [facility] [address] [place] [address] Eosinophils (Bld) [#/Vol] 0.07 10*3/uL Normal <0.46 [facility] Comment on above: Performed By: #### C BCDIF, CMP, MG1 #### [facility] [address] [place] [address] Eosinophils/100 WBC (Bld) 1.2 % Normal [facility] Comment on above: Performed By: #### C BCDIF, CMP, MG1 #### [facility] [address] [place] [address] Erythrocyte distribution width (RBC) [Ratio] 12.4 % Normal 11.5-15.0 [facility] Comment on above: Performed By: #### C BCDIF, CMP, MG1 #### [facility] [address] [place] [address] Hematocrit (Bld) [Volume fraction] 37.3 % Low 39.0-51.0 [facility] Comment on above: Performed By: #### C BCDIF, CMP, MG1 #### [facility] [address] [place] [address] Hemoglobin (Bld) [Mass/Vol] 12.5 g/dL Low 13.0-17.0 [facility] Comment on above: Performed By: #### C BCDIF, CMP, MG1 #### [facility] [address] [address] Lymphocytes (Bld) [#/Vol] 2.32 10*3/uL Normal 1.00-4.00 [facility] Comment on above: Performed By: #### C BCDIF, CMP, MG1 #### [facility] [address] [place] [address] Lymphocytes/100 WBC (Bld) 38.7 % Normal [facility] Comment on above: Performed By: #### C BCDIF, CMP, MG1 #### [facility] [address] [place] [address] MCH 31.9 pG Normal 26.0-34.0 [facility] Comment on above: Performed By: #### C BCDIF, CMP, MG1 #### [facility] [address] [place] [address] MCHC (RBC) [Mass/Vol] 33.5 g/dL Normal 30.5-36.0 [facility] Comment on above: Performed By: #### C BCDIF, CMP, MG1 #### [facility] [address] [place], [place] [phone] MCV (RBC) [Entitic vol] 95.2 fL Normal 80.0-100.0 [facility] Comment on above: Performed By: #### C BCDIF, CMP, MG1 #### [facility] [address] [place] [address] Monocytes/100 WBC (Bld) 9.2 % Normal [facility] Comment on above: Performed By: #### C BCDIF, CMP, MG1 #### [facility] [address] [place] [address] Neutrophils/100 WBC (Bld) 50.4 % Normal [facility] Comment on above: Performed By: #### C BCDIF, CMP, MG1 #### [facility] [address] [place] [address] NRBCs 0.0 /100 WBC Normal 0 [facility] Comment on above: Performed By: #### C BCDIF, CMP, MG1 #### [facility] [address] [place] [address] Platelet mean volume (Bld) [Entitic vol] 9.4 fL Normal 9.0-12.7 [facility] Comment on above: Performed By: #### C BCDIF, CMP, MG1 #### [facility] [address] [place] [address] Platelets (Bld) [#/Vol] 270 10*3/uL Normal 150-400 [facility] Comment on above: Performed By: #### C BCDIF, CMP, MG1 #### [facility] [address] [place] [address] RBC (Bld) [#/Vol] 3.92 10*6/uL Low 4.20-6.00 [facility] Comment on above: Performed By: #### C BCDIF, CMP, MG1 #### [facility] [address] [place] [address] WBC (Bld) [#/Vol] 6.00 10*3/uL Normal 3.70-11.00 [facility] Comment on above: Performed By: #### C BCDIF, CMP, MG1 #### [facility] [address] [place] [address] Comp Metabolic Panelon 09-23 Albumin [Mass/Vol] 4.2 g/dL Normal 3.9-4.9 [facility] Comment on above: Performed By: #### C BCDIF, CMP, MG1 #### [facility] [address] [place] [address] ALP [Catalytic activity/Vol] 44 U/L Normal 38-113 [facility] Comment on above: Performed By: #### C BCDIF, CMP, MG1 #### [facility] [address] [place] [address] ALT [Catalytic activity/Vol] 26 U/L Normal 10-54 [facility] Comment on above: Performed By: #### C BCDIF, CMP, MG1 #### [facility] [address] [facility] [phone] Anion gap [Moles/Vol] 11 mmol/L Normal 9-18 [facility] Comment on above: Performed By: #### C BCDIF, CMP, MG1 #### [facility] [address] [facility] [phone] AST [Catalytic activity/Vol] 36 U/L Normal 14-40 [facility] Comment on above: Performed By: #### C BCDIF, CMP, MG1 #### [facility] [address] [phone] Bilirubin [Mass/Vol] 0.3 mg/dL Normal 0.2-1.3 [facility] Comment on above: Performed By: #### C BCDIF, CMP, MG1 #### [facility] [address] [phone] Calcium [Mass/Vol] 9.2 mg/dL Normal 8.5-10.2 [facility] Comment on above: Performed By: #### C BCDIF, CMP, MG1 #### [facility] [address] [place], [place] [phone] Chloride [Moles/Vol] 102 mmol/L Normal 97-105 [facility] Comment on above: Performed By: #### C BCDIF, CMP, MG1 #### [facility] [address] [phone] CO2 [Moles/Vol] 23 mmol/L Normal 22-30 [facility] Comment on above: Performed By: #### C BCDIF, CMP, MG1 #### [facility] [address] [phone] Creatinine [Mass/Vol] 0.60 mg/dL Low 0.73-1.22 [facility] Comment on above: Performed By: #### C BCDIF, CMP, MG1 #### [facility] [address] [phone] eGFR- Amer. >60 Normal [facility] Comment on above: Performed By: #### C BCDIF, CMP, MG1 #### [facility] [address] [facility] [phone] eGFR-All Other Races >60 Normal [facility] Comment on above: Result Comment: eGFR (Estimated GFR) Units of measure: mL/min/1.73 meters squared eGFR is derived from the reexpressed MDRD Study equation using the following parameters: serum creatinine, age, gender and race. The creatinine assay has been calibrated to be traceable to IDMS. An eGFR <60 mL/min/1.73m2 for >3 months is consistent with chronic kidney disease. Refer to KDOQI guidelines for clinical interpretation. In patients with unstable renal function, e.g. those with acute kidney injury, the eGFR may not accurately reflect actual GFR. Performed By: #### C ELSIE TANG, MG1 #### [facility] [address] [facility] [phone] Glucose [Mass/Vol] 133 mg/dL High 74-99 [facility] Comment on above: Result Comment: The [place] [employer] (ADA) provides guidance for cutoff values for fasting glucose and random glucose. The ADA defines fasting as no caloric intake for at least 8 hours. Fasting plasma glucose results between 100 to 125 mg/dL indicate increased risk for diabetes (prediabetes). Fasting plasma glucose results greater than or equal to 126 mg/dL meet the criteria for diagnosis of diabetes. In the absence of unequivocal hyperglycemia, results should be confirmed by repeat testing. In a patient with classic symptoms of hyperglycemia or hyperglycemic crisis, random plasma glucose results greater than or equal to 200 mg/dL meet the criteria for diagnosis of diabetes. Reference: Standards of Medical Care in Diabetes 2016, [place] [employer]. Diabetes Care. 2016.39(Suppl 1). Performed By: #### C BCAYMFELSIE, MG1 #### [facility] [address] [facility] [phone] Potassium [Moles/Vol] 4.0 mmol/L Normal 3.7-5.1 [facility] Comment on above: Performed By: #### C ELSIE TANG, MG1 #### [facility] [address] [facility] [phone] Protein [Mass/Vol] 6.9 g/dL Normal 6.3-8.0 [facility] Comment on above: Performed By: #### C BCELSIE HOFF, MG1 #### [facility] [address] [facility] [phone] Sodium [Moles/Vol] 136 mmol/L Normal 136-144 [facility] Comment on above: Performed By: #### C BCDIF, CMP, MG1 #### [facility] [address] [facility] [phone] Urea nitrogen [Mass/Vol] 14 mg/dL Normal 9-24 [facility] Comment on above: Performed By: #### C BCDIF, CMP, MG1 #### [facility] [address] [facility] [phone] ED NOTEon 09-23-2020 ED NOTE HNO ID: [id number] Author: Minna ContrerasRn) RONNY Saini Service: ? Author Type: Registered Nurse Type: ED Notes Filed: 09/23/2020 2:17 PM Note Text: Pt discharged with verbal and written instructions. Verbalized understanding. Instructed pt to follow up with PCP. No acute distress. Instructed pt to follow up immediately if conditions worsens, verbalized understanding. [facility] ED NOTE HNO ID: [id number] Author: Minna Saini RN Service: ? Author Type: Registered Nurse Type: ED Notes Filed: 09/26/2020 1:05 PM Note Text: .Emergency Services: ED Call Back Questionnaire SERVICE DATE: 09/23/2020 Are you feeling better? Yes, starting to. Any questions about discharge instructions and follow-up care? No Were you able to make a follow up appointment? Pt states he is quarantining Do you have any further questions? No Is there anything that we could have done differently to improve your ED visit? No SIGNATURE: Minna Saini RN PATIENT NAME: Traci Limon DATE: September 26, 2020 TIME: 1:03 PM [facility] ED NOTE HNO ID: [id number] Author: Farheen ContrerasRn) RONNY Reyes Service: Nursing Author Type: Registered Nurse Type: ED Notes Filed: 09/23/2020 10:42 AM Note Text: Flu/COVID swab done to bilat. nares, pt tolerated very well. Specimen sent to lab on ice. [facility] ED NOTE HNO ID: [id number] Author: Farheen ContrerasRn) Amy, RN Service: Nursing Author Type: Registered Nurse Type: ED Notes Filed: 09/23/2020 10:41 AM Note Text: Pt presents to the ED for CC multiple COVID concerns since Saturday, also with C/O dizziness and has been SOB. [facility] ED PROV NOTEon 09-23-2020 ED PROV NOTE HNO ID: [id number] Author: Vicki Barakat Service: Emergency Medicine Author Type: Physician Medical Office Technician Type: ED Provider Notes Filed: 09/23/2020 2:13 PM Note Text: ED Provider Note Patient Name: Traci Limon SERVICE DATE: 09/23/20 History Patient presents with: Shortness of Breath Covid19 Concern: multiple COVID symptoms since Saturday Dizziness 65-year-old black male the presents to the emergency room with multiple Covid symptoms. Patient has a past medical history of insulin-dependent diabetes and hypertension. The patient states that there are multiple workers that have Covid and he has had exposure. The patient states that for the past 3 days he has had dizziness, headache, myalgias and shortness of breath. Patient states that he has normal smell and taste. No chest pain. No nausea vomiting or diarrhea. He was scheduled to get his first Covid shot next week. Is a non-smoker. Pt denies fever, chills, facial pain, neck pain or stiffness, thunderclap or sudden onset of DOLAN, or worst headache of their life. Pain scale 3/10. Review of systems were reviewed and patient denies fever, chills, visual changes, sore throat or dental complaints, neck pain or stiffness, chest pain, cough, abdominal pain, nausea, vomiting, or diarrhea. Patient denies genitourinary symptoms, skin rash, musculoskeletal issues or neuro deficits. Patient denies any mental health concerns to include anxiety, depression, SI, HI or hallucinations. Symptoms not improved with home or OTC medications. No other medical complaints or injuries. No other aggravating or alleviating symptoms other than described as above. History provided by: Patient healthcare interpreter used: No PAST MEDICAL HISTORY Diagnosis Date - Arthritis of knee, left 07/03/2010 - Arthritis of knee, right 07/03/2010 - Diabetes (HCC) - Hyperchloremia - Hypertension PAST SURGICAL HISTORY Procedure Laterality Date - KNEE BILATERAL OP SURGERY - TONSILLECTOMY HX FAMILY HISTORY Problem Relation Age of Onset - Alzheimer's Disease Mother - No Ocular Disease Mother - other (lung cancer) Mother - Heart Attack Father - No Ocular Disease Father - Diabetes Sister - Diabetes Brother - Diabetes Sister - Diabetes Sister Social History Tobacco Use - Smoking status: Never Smoker - Smokeless tobacco: Never Used Substance and Sexual Activity - Alcohol use: Not Currently Comment: rarely - Drug use: No - Sexual activity: Not on file ALLERGIES No Known Allergies Review of Systems Constitutional: Positive for activity change, appetite change and fatigue. HENT: Negative. Eyes: Negative. Respiratory: Positive for shortness of breath. Cardiovascular: Negative. Gastrointestinal: Negative. Genitourinary: Negative. Musculoskeletal: Positive for myalgias. Skin: Negative. Neurological: Positive for dizziness and headaches. All other systems reviewed and are negative. Physical Exam BP 135/77 Pulse 79 Temp (Src) 97.9 (Oral) Resp 21 Wt 241 lb (109.3kg) SpO2 97% O2 Therapy: Room Air Physical Exam Vitals and nursing note reviewed. Constitutional: General: He is awake. He is not in acute distress. Appearance: Normal appearance. He is well-developed and well-groomed. He is obese. He is not ill-appearing, toxic-appearing or diaphoretic. HENT: Head: Normocephalic and atraumatic. Jaw: There is normal jaw occlusion. Right Ear: Hearing, tympanic membrane, ear canal and external ear normal. Left Ear: Hearing, tympanic membrane, ear canal and external ear normal. Nose: Nose normal. Mouth/Throat: Lips: [place]. Mouth: Mucous membranes are moist. Pharynx: Oropharynx is clear. Uvula midline. Eyes: General: Lids are normal. Vision grossly intact. Extraocular Movements: Extraocular movements intact. Conjunctiva/sclera: Conjunctivae normal. Pupils: Pupils are equal, round, and reactive to light. Neck: Trachea: Trachea and phonation normal. Meningeal: Brudzinski's sign and Kernig's sign absent. Cardiovascular: Rate and Rhythm: Normal rate and regular rhythm. Pulses: Normal pulses. Dorsalis pedis pulses are 2+ on the right side and 2+ on the left side. Posterior tibial pulses are 2+ on the right side and 2+ on the left side. Heart sounds: Normal heart sounds. No murmur heard. Pulmonary: Effort: Pulmonary effort is normal. Breath sounds: Normal breath sounds and air entry. No stridor. No decreased breath sounds, wheezing, rhonchi or rales. Chest: Chest wall: No tenderness. Abdominal: General: Abdomen is flat. Bowel sounds are normal. Palpations: Abdomen is soft. Tenderness: There is no abdominal tenderness. Musculoskeletal: General: Normal range of motion. Cervical back: Full passive range of motion without pain, normal range of motion and neck supple. Right lower leg: No edema. Left lower leg: No edema. Lymphadenopathy: Cervical: No cervical (more content not included)... Normal [facility] Expedited [id number] 09-24-19 21 SARS-CoV-2 (COVID-19) RNA MARCUS+probe Ql (Unsp spec) UPPER RESPIRATORY TRACT SWAB Normal [facility] Comment on above: Performed By: #### E XCOVD #### [facility] [address] [place] [phone] SARS-CoV-2 (COVID-19) RNA MARCUS+probe Ql (Unsp spec) Negative for COVID19 (SARS CoV2) by RT-PCR or equivalent method. Normal Negative for COVID19 (SARS CoV2) by RT-PCR or equivalent method. [facility] Comment on above: Result Comment: This test has been authorized by FDA under an Emergency Use Authorization (EUA). Performed By: #### E XCOVD #### [facility] [address] [place] [phone] Magnesiumon 09-23-2020 Magnesium [Mass/Vol] 1.6 mg/dL Low 1.7-2.3 [facility] Comment on above: Performed By: #### C BCDIF, CMP, MG1 #### [facility] [address] [place] [phone] Sepsis Lactateon 09-23-2020 Sepsis Lactate 1.8 mmol/L Normal 0.5-2.0 [facility] Comment on above: Performed By: #### S LACT #### [facility] [address] [place] [phone] Urinalysison 09-23-2020 Bilirubin, Urine Negative Normal Negative [facility] Comment on above: Performed By: #### U A #### [facility] [address] Clarity (U) Clear Normal Clear [facility] Comment on above: Performed By: #### U A #### [facility] [address] Color (U) Yellow Normal Yellow [facility] Comment on above: Performed By: #### U A #### [facility] [address] [address] Glucose Ql (U) Negative Normal Negative [facility] Comment on above: Performed By: #### U A #### [facility] [address] Hemoglobin/Blood,Ur Negative Normal Negative [facility] Comment on above: Performed By: #### U A #### [facility] [address] [address] Ketones Ql (U) Trace Critically abnormal Negative [facility] Comment on above: Performed By: #### U A #### [facility] [address] [place] [address] Leukest Negative Normal Negative [facility] Comment on above: Performed By: #### U A #### [facility] [address] [place] [address] Nitrite Ql (U) Negative Normal Negative [facility] Comment on above: Performed By: #### U A #### [facility] [address] [place] [address] pH (U) 6.0 [pH] Normal 5.0-8.0 [facility] Comment on above: Performed By: #### U A #### [facility] [address] [place] [address] Protein, Urine Negative Normal Negative [facility] Comment on above: Performed By: #### U A #### [facility] [address] [place], [place] [phone] Specific [place], Ur 1.025 Normal 1.005-1.030 [facility] Comment on above: Performed By: #### U A #### [facility] [address] [place], [place] [phone] Urobilinogen Qn (U) 0.2 {Brie'U}/dL Normal 0.2-1.0 [facility] Comment on above: Performed By: #### U A #### [facility] [address] [facility] [phone] XR CHEST 1V FRONTAL PORTon 0 09-23-2020 XR CHEST 1V FRONTAL PORT * * *Final Report* * * DATE OF EXAM: Sep 23 2020 11:30AM MDX [id number] - XR CHEST 1V FRONTAL PORT / PROCEDURE REASON: Shortness of breath * * * * Physician Interpretation * * * * EXAMINATION: CHEST RADIOGRAPH (PORTABLE SINGLE VIEW AP) Exam Date/Time: 09/23/2020 11:30 AM CLINICAL HISTORY: Shortness of breath MQ: XCPR_5 Comparison: No available prior study RESULT: Lines, tubes, and devices: None. Lungs and pleura: No confluent infiltrate, effusion, or pneumothorax identified. Cardiomediastinal silhouette: Cardiac and mediastinal silhouettes are within normal limits. Other: . IMPRESSION: No acute cardiopulmonary disease identified. Assistant Professor Of Psychology: JUAN ALBERTO Transcribe Date/Time: Sep 23 2020 11:37A Dictated by : JEAN KINGSTON MD This examination was interpreted and the report reviewed and electronically signed by: JEAN KINGSTON MD on Sep 23 2020 11:38AM EST [id number] CN Normal [facility] Clinical Summary: HMSPatient IDon 10-28-2017 MOP Invalid Interpretation Code [facility] Work Phone: Office Visit: Postop - subse quent visit, Rm: PRon 10-28-2017 NEGATED: Highlighted rowDocumentation of current medications (procedure) Done Invalid Interpretation Code [facility] Work Phone: Echo Stress Echo w/wo Contra ston 07-10-2017 Echo Stress Echo w/wo Contrast Patient Name: TARCI LIMON Ultrasound Exam Date/Time 07/10/2017 09:55:00 EST Exam Echo Stress Echo w/wo Contrast Ordering Physician RAUDEL SU Accession Number [id number] Reason For Exam chest pain Report STRESS ECHOCARDIOGRAM Nj Protocol PATIENT: Traci Limon STUDY DATE: 07/10/2017 : 1955 AGE: 61 HT/WT: 177.8 cm (70 109.8 kg in) (241.5 lb) GENDER: M BP: 122 / 76 LOCATION: [facility] and PATIENT Outpatient Karen Palomares STATUS: *ORDERING PHYSICIAN: * Raudel Su *SUPERVISING PHYSICIAN: * Marquis Grande MD *RN: * Guerline Brennan RN *READING PHYSICIAN: * Marquis Grande MD *SECURITY DIRECTOR: * Melba Ashford --- INDICATIONS: Abn EKG (R94.31). --- HISTORY: Dyslipidemia. Family history of cardiovascular disease. Hypertension treated Diabetic non insulin dependent Medications: Atorvastatin (Lipitor). Atorvastatin (Lipitor). Aspirin. Allergies: No known allergies. Patient is NPO per policy. --- CONCLUSIONS SUMMARY: 1. Procedure narrative: Treadmill exercise testing was performed using the Nj protocol. The patient exercised for 9 min, to a maximal work rate of 10.1 mets. Exercise was terminated due to moderate fatigue. 2. Stress: Peak heart rate during stress was 187 bpm (116% of maximal predicted heart rate). The maximal predicted heart rate was 161 bpm. 3. Stress ECG conclusions: There are no stress arrhythmias or conduction abnormalities. The stress ECG is normal. No stress induced ECG changes suggestive of ischemia. 4. Stress echo: Left ventricular ejection fraction was lower limits of normal at rest and with stress. There is no evidence for stress-induced ischemia. 5. Normal study after maximal exercise. --- STUDY DATA: Stress echocardiogram. Procedure: Initial setup. A baseline ECG was recorded. Surface ECG leads and blood pressure measurements were monitored. Image quality was good. Intravenous imaging enhancement (Definity) was administered to opacify the chamber. Definity lot #: [id number]. Definity dose administered: 4 ml. Definity wasted: 6 ml. Treadmill exercise testing was performed using the Nj protocol. The patient exercised for 9 min, to a maximal work rate of 10.1 mets. Exercise was terminated due to moderate fatigue. Post-stress images were obtained within 90 seconds of peak stress. Transthoracic stress echocardiography. Images were captured at baseline and peak exercise. Exercise was terminated when the patient's Asif scale was 17. M-mode, limited 2D, limited spectral Doppler, and color flow Doppler images were acquired and archived for permanent storage and are available for subsequent review. Study status: Routine. Patient status: Outpatient. Pre pain assessment is 0 out of 10. Post pain assessment is 0 out of 10. Location: Echo laboratory. Consent: The procedure was reviewed with the patient and the patient voices understanding. Study completion: The patient tolerated the procedure well. There were no complications. Discharge: Discharge instructions given The patient was discharged to homewhile ambulatory. --- FINDINGS BASELINE ECG: Normal sinus rhythm. STRESS PROTOCOL: + +---+- +-------- + !Stage !HR !BP (mmHg) !Symptoms! + +---+- +-------- + !Rest !93 !122/76 (91) !None ! + +---+- +-------- + !Peak stress !187!160/70 (100)!--------! + +---+- +-------- + !Recovery !117!150/70 (97) !--------! + +---+- +-------- + !Late recovery!103!120/70 (87) !None ! + +---+- +-------- + STRESS RESULTS: Peak heart rate during stress was 187 bpm (116% of maximal predicted heart rate). The maximal predicted heart rate was 161 bpm. The rate-pressure product for the peak heart rate and blood pressure was 54594 mm Hg/min. STRESS ECG: There are no stress arrhythmias or conduction abnormalities. The stress ECG is normal. No stress induced ECG changes suggestive of ischemia. Baseline: LV size is normal. LV global systolic function is normal. Normal wall motion; no LV regional wall motion abnormalities. Wall motion score: 1.00. Peak stress: LV size is normal. LV global systolic function is normal. Normal wall motion; no LV regional wall motion abnormalities. No evidence for new LV regional wall motion abnormalities. Wall motion score: 1.00. STRESS ECHO RESULTS: Left ventricular ejection fraction was lower limits of normal at rest and with stress. There is no evidence for stress-induced ischemia. --- Measurements Left ventricle Value Reference LV ID, ED 4.7 cm 4.2 - 5.9 LV ID, ES 2.9 cm --------- LV PW thickness, ED 1.0 cm 0.6 - 1.0 LV end-diastolic volume, 1-p A4C 122 ml 67 - 155 LV end-systolic volume, 1-p A4C 48 ml 22 - 58 LV end-diastolic volume, 2-p 113 ml 67 - 155 LV end-systolic volume, 2-p 45 ml 22 - 58 LV ejection fraction, 2-p 60 % >=55 Ventricular septum Value Reference IVS thickness, ED 1.0 cm 0.6 - 1.0 LVOT Value Reference LVOT ID, A-P 2.1 cm --------- LVOT mean velocity, S 0.6 m/sec --------- LVOT VTI, S 15.6 cm --------- LVOT peak gradient, S 3 mm Hg --------- Stroke volume (SV), LVOT DP 55 ml --------- Stroke index (SV/bsa), LVOT DP 23 ml/m2 --------- Legend: (L) and (H) john values outside specified reference range. Electronically signed by Marquis Grande MD 07/10/2017 14:42 Final Dictated: 07/10/2017 2:43 pm Dictating Physician: Jamil GRANDE TED Signed Date and Time: 07/10/2017 2:43 pm Signed by: Jamil GRANDE TED [facility] Vital Signs Date Time Vital Sign Value Performing Clinician Facility 11-17-2024 07:59-0400 Body height 177.8 cm Sander Hammond APRN.CAGE UNLOADER Work Phone: [facility] 11-17-2024 07:59-0400 Body mass index (BMI) [Ratio] 35.43 kg/m2 [facility] TELEVISION INSTALLER HELPER.[facility] Work Phone: [facility] 11-17-2024 07:59-0400 Body weight 112 kg [facility] TELEVISION INSTALLER HELPER.CAGE UNLOADER Work Phone: [facility] 11-17-2024 07:59-0400 Diastolic blood pressure 82 mm[Hg] [facility] TELEVISION INSTALLER HELPER.CAGE UNLOADER Work Phone: [facility] 11-17-2024 07:59-0400 Heart rate 79 /min [facility] TELEVISION INSTALLER HELPER.[facility] Work Phone: [facility] 11-17-2024 07:59-0400 SaO2% (BldA) [Mass fraction] 100 % [facility] TELEVISION INSTALLER HELPER.[facility] Work Phone: [facility] 11-17-2024 07:59-0400 Systolic blood pressure 122 mm[Hg] [facility] TELEVISION INSTALLER HELPER.[facility] Work Phone: [facility] 09-18-2024 23:35-0400 Body temperature 97.9 [degF] No Primary Care Physician [facility] 09-18-2024 23:35-0400 Diastolic blood pressure 80 mm[Hg] No Primary Care Physician [facility] 09-18-2024 23:35-0400 Heart rate 96 /min No Primary Care Physician [facility] 09-18-2024 23:35-0400 Respiratory rate 18 /min No Primary Care Physician [facility] 09-18-2024 23:35-0400 SaO2% (BldA) [Mass fraction] 96 % No Primary Care Physician [facility] 09-18-2024 23:35-0400 Systolic blood pressure 129 mm[Hg] No Primary Care Physician [facility] 09-18-2024 21:05-0400 Body height 177.8 cm No Primary Care Physician [facility] 09-18-2024 21:05-0400 Body mass index (BMI) [Ratio] 35 kg/m2 No Primary Care Physician [facility] 09-18-2024 21:05-0400 Body weight 110.7 kg No Primary Care Physician [facility] 10-01-2023 14:46-0400 Body height 177.8 cm Xi Peña MD Work Phone: [facility] 10-01-2023 14:46-0400 Body weight 113.2 kg Xi Peña MD Work Phone: [facility] 10-01-2023 14:46-0400 Diastolic blood pressure 82 mm[Hg] Xi Peña MD Work Phone: [facility] 10-01-2023 14:46-0400 Heart rate 103 /min Xi Peña MD Work Phone: [facility] 10-01-2023 14:46-0400 Respiratory rate 16 /min Xi Peña MD Work Phone: [facility] 10-01-2023 14:46-0400 SaO2% (BldA) [Mass fraction] 96 % Xi Peña MD Work Phone: [facility] 10-01-2023 14:46-0400 Systolic blood pressure 130 mm[Hg] Xi Peña MD Work Phone: [facility] 03-27-2023 15:22-0400 Body height 177.8 cm Xi Peña MD Work Phone: [facility] 03-27-2023 15:22-0400 Body weight 114.4 kg Xi Peña MD Work Phone: [facility] 03-27-2023 15:22-0400 Diastolic blood pressure 76 mm[Hg] Xi Peña MD Work Phone: [facility] 03-27-2023 15:22-0400 Heart rate 104 /min Xi Peña MD Work Phone: [facility] 03-27-2023 15:22-0400 SaO2% (BldA) [Mass fraction] 100 % Xi Peña MD Work Phone: [facility] 03-27-2023 15:22-0400 Systolic blood pressure 116 mm[Hg] Xi Peña MD Work Phone: [facility] 12-01-2021 10:53-0400 Body temperature 97.3 [degF] Surgery Nurse [facility] Work Phone: 12-01-2021 10:53-0400 Diastolic blood pressure 68 mm[Hg] Surgery Nurse [facility] Work Phone: 12-01-2021 10:53-0400 Heart rate 85 /min Surgery Nurse [facility] Work Phone: 12-01-2021 10:53-0400 Respiratory rate 18 /min Surgery Nurse [facility] Work Phone: 12-01-2021 10:53-0400 SaO2% (BldA) [Mass fraction] 96 % Surgery Nurse [facility] Work Phone: 12-01-2021 10:53-0400 Systolic blood pressure 99 mm[Hg] Surgery Nurse [facility] Work Phone: 12-01-2021 08:50-0400 Body height 177.8 cm Surgery Nurse [facility] Work Phone: 12-01-2021 08:50-0400 Body mass index (BMI) [Ratio] 36 kg/m2 Surgery Nurse [facility] Work Phone: 12-01-2021 08:50-0400 Body weight 114 kg Surgery Nurse [facility] Work Phone: 10-19-2021 14:31-0400 Body mass index (BMI) [Ratio] 38.4 kg/m2 Surgery Nurse [facility] Work Phone: 10-19-2021 14:31-0400 Body weight 117.93 kg Surgery Nurse [facility] Work Phone: NEGATED: Jarvis [id number] 09:31-0400 BMI (Body Mass Index) 35.57 kg/m2 Ada Montoya LPN [facility] Work Phone: NEGATED: Highlighted [id number] 09:31-0400 BP Diastolic 89 mm[Hg] Ada Montoya LPN [facility] Work Phone: NEGATED: Highlighted [id number] 09:31-0400 BP Systolic 129 mm[Hg] Ada Montoya LPN [facility] Work Phone: NEGATED: Highlighted [id number] 09:31-0400 Height 175.26 cm Ada Montoya LPN [facility] Work Phone: NEGATED: Highlighted [id number] 09:31-0400 Height 175 cm Ada Montoya LPN [facility] Work Phone: NEGATED: Highlighted [id number] 09:31-0400 Pulse (Heart Rate) 97 /min Ada Montoya LPN [facility] Work Phone: NEGATED: Highlighted [id number] 09:31-0400 Weight 108.86 kg Ada Montoya LPN [facility] Work Phone: NEGATED: Highlighted [id number] 09:31-0400 Weight 109 kg Ada Montoya LPN [facility] Work Phone: Encounters Encounter Date Encounter Type Care Provider Facility Start: 01-29-2025 End: 02-01-2025 Telephone encounter Alana Layne MD Work Phone: Endocrinology Comment on above: Patient Update about the [place] Start: 11-30-2024 End: 11-30-2024 Telephone encounter Sander Hammond APRN.CNP Work Phone: [facility] [place] Comment on above: Dionte Cedeño Start: 11-27-2024 End: 11-27-2024 Telephone encounter Sander Hammond APRN.CNP Work Phone: [facility] [place] Start: 11-23-2024 End: 11-30-2024 Telephone encounter Sander Hammond TELEVISION INSTALLER HELPER.CAGE UNLOADER Work Phone: Endocrinology Comment on above: Medication Problem Start: 11-17-2024 End: 11-17-2024 Patient encounter procedure Sander Morteza TELEVISION INSTALLER HELPER.CAGE UNLOADER Work Phone: Endocrinology Comment on above: Type 2 diabetes brandee itus without complication, with long-term current use of insulin (HCC) (Primary Dx); Obesity, Class II, BMI 35-39.9; Hypertension, essential; Hyperlipidemia, mixed Start: 11-17-2024 End: 11-17-2024 ambulatory [facility] Facility:[facility] Start: 10-25-2024 End: 10-26-2024 Refill Xi Peña MD Work Phone: Endocrinology Comment on above: Refill Request Start: 09-28-2024 End: 10-01-2024 Refill Xi Peña MD Work Phone: Endocrinology Comment on above: Refill Request Start: 09-22-2024 End: 09-22-2024 Telephone encounter Xi Peña MD Work Phone: Endocrinology Comment on above: [place] Follow U p Call Start: 09-18-2024 End: 09-18-2024 Emergency department patient visit No Primary Care Physician -Emergency Department Work Phone: Start: 09-16-2024 End: 09-21-2024 Refill Xi Peña MD Work Phone: Endocrinology Comment on above: Refill Request Start: 03-19-2024 End: 03-19-2024 Refill Sander Hammond TELEVISION INSTALLER HELPER.CAGE UNLOADER Work Phone: Endocrinology Comment on above: [facility] Change Requ est Form (Freestyle Hi 3 sensor/) Start: 02-12-2024 End: 02-12-2024 Emergency department patient visit No Primary Care Physician Facility:[facility] Start: 12-02-2023 Refill Xi Peña MD Work Phone: Endocrinology Comment on above: Refill Request Start: 11-19-2023 End: 11-19-2023 Emergency department patient visit Remus Ungur Facility:[facility] Start: 10-01-2023 End: 10-01-2023 Patient encounter procedure Xi Peña MD Work Phone: Endocrinology Comment on above: Type 2 diabetes brandee itus without complication, with long-term current use of insulin (HCC) (Primary Dx) Start: 09-13-2023 Refill Xi Peña MD Work Phone: [facility] [place] Comment on above: Refill Request Start: 07-25-2023 Refill Xi Peña MD Work Phone: Endocrinology Comment on above: Refill Request Start: 03-27-2023 End: 03-27-2023 Patient encounter procedure Xi Peña MD Work Phone: Endocrinology Comment on above: Poorly controlled ty pe 2 diabetes mellitus (HCC) (Primary Dx); Hypertension, essential; Type 2 diabetes mellitus with microalbuminuria, with long-term current use of insulin ([facility]); Hyperglycemia Start: 01-24-2022 End: 01-24-2022 Subsequent hospital visit by physician Raudel Su MD Work Phone: [facility] Start: 12-01-2021 Non-patient / Non-visit Surgery Nurse [facility] Start: 12-01-2021 End: 12-01-2021 Admission to same day surgery center Surgery Nurse [facility] Start: 10-19-2021 Non-patient / Non-visit Surgery Nurse [facility] Start: 10-19-2021 End: 10-19-2021 Patient encounter procedure Surgery Nurse [facility] Start: 10-28-2017 End: 10-28-2017 Patient encounter procedure John Jensen MD Work Phone: [facility] Work Phone: Start: 07-10-2017 Ambulatory Raudel Su [facility] Procedures Date Procedure Procedure Detail Performing Clinician Start: 11-05-2024 Hemoglobin A1c/Hemoglobin.total in Blood [facility] Provider Start: 10-01-2023 Hemoglobin A1c/Hemoglobin.total in Blood Xi Peña MD Work Phone: Start: 01-24-2022 Radiologic exam ches t 2 views Radha Laiporfiriore Work Phone: Start: 12-01-2021 Colonoscopy Surgery Nu rse Start: 03-09-2020 Colonoscopy Xi Ag i, MD Work Phone: Start: 10-28-2017 End: 10-28-2017 Blood pressure within normal parameters - no follow-up required John Jensen MD Work Phone: Start: 10-28-2017 End: 10-28-2017 BMI documented as above normal parameters - follow-up documented John Jensen MD Work Phone: Start: 10-28-2017 End: 10-28-2017 Current medications documented John Jensen MD Work Phone: Start: 10-28-2017 End: 10-28-2017 Pain assessment documented as positive - follow-up documented John Jensen MD Work Phone: Start: 10-28-2017 End: 10-28-2017 Tobacco non-user John Jensen MD Work Phone: Start: 10-28-2017 End: 10-28-2017 X-ray exam of knee, 3 John Jensen MD Work Phone: Plan of Treatment Date Care Activity Detail Author Start: 03-26-2029 Urine microalbumin profile DTaP,Tdap,Td Vaccine (2 - Td or Tdap) [facility] Start: 06-22-2025 End: 06-22-2025 Patient encounter procedure 06/22/2025 8:40 AM EST Office Visit Endocrinology [address] [id number] Xi Peña MD [address] [place] [address] Follow up Endocrinology Comment on above: Follow up Start: 03-09-2025 Colonoscopy Colonoscopy [facility] Start: 03-09-2025 Colorectal Cancer Screening Colorectal Cancer Screening [facility] Start: 03-09-2025 Screening for malign ant neoplasm of colon [facility] Start: 02-19-2025 End: 02-19-2025 Patient encounter procedure 02/19/2025 9:00 AM EDT Office Visit Endocrinology [address] [address] Sander Hammond, PRESTON.CAGE UNLOADER [address] [address] Follow up Endocrinology Comment on above: Follow up Start: 02-15-2025 Influenza vaccination [facility] Start: 02-05-2025 Hemoglobin A1c measurement HbA1C [facility] Start: 02-01-2025 Prostate Cancer Screening Discussion Prostate Cancer Screening Discussion [facility] Start: 02-01-2025 Prostate specific antigen measurement Prostate Cancer Screening Discussion [facility] Start: 11-17-2024 End: 11-17-2024 Patient encounter procedure 11/17/2024 8:00 AM EDT Office Visit Endocrinology [address] [address] Sander Hammond, TELEVISION INSTALLER HELPER.CAGE UNLOADER [address] [address] follow up Endocrinology Comment on above: follow up Start: 09-18-2024 [facility] Start: 06-27-2024 BP Controlled (<130/80) BP Controlle d (<130/80) [facility] Start: 06-27-2024 Diabetic foot examination Diabetic Foot Exam [facility] Start: 06-17-2024 Advance Directive Discussion Advance Directive Discussion [facility] Start: 06-17-2024 Medicare Advantage Annual Wellness Visit Medicare Advantage Annual Wellness Visit [facility] Start: 04-01-2024 Hemoglobin A1c measurement HbA1C [facility] Start: 04-01-2024 End: 04-01-2024 Patient encounter procedure 04/01/2024 8:30 AM EDT Office Visit Endocrinology [address] [address] Sander Hammond, TELEVISION INSTALLER HELPER.CAGE UNLOADER [address] [address] 3 month followup Endocrinology Comment on above: 3 month followup Start: 03-27-2024 BP Controlled (<130/80) BP Controlle d (<130/80) [facility] Start: 02-16-2024 Covid-19 Vaccine () Covid-19 Vaccine () [facility] Start: 02-16-2024 Influenza vaccination [facility] Start: 01-04-2024 Hepatitis B screening Urine Albumin:Creatinine Ratio [facility] Start: 12-26-2023 Hemoglobin A1c measurement HbA1C [facility] Start: 06-17-2023 Advance Directive Discussion Advance Directive Discussion [facility] Start: 06-17-2023 Behavioral Health Screening Behavioral Health Screening [facility] Start: 06-17-2023 Depression Assessment [facility] Start: 02-15-2023 Covid-19 Vaccine () Covid-19 Vaccine () [facility] Start: 02-15-2023 Influenza vaccination Influenza Vacc ine (#1) [facility] Start: 2022 Advance Directive Discussion Advance Directive Discussion [facility] Start: 2022 Annual PCP Team Home Health Cna chelsey Disease Visit Annual PCP Team Chronic Disease Visit [facility] Start: 06-17-2022 Depression Assessment Depression [facility] Start: 05-05-2022 3 comp foot exam completed Diabetic Foot Exam [facility] Start: 05-04-2022 Hepatitis B screening Urine Albumin:Creatinine Ratio [facility] Start: 05-04-2022 Hepatitis B surface antibody level LDL Cholesterol [facility] Start: 04-20-2022 Glaucoma screening Dilated Retinal E xam [facility] Start: 04-20-2022 Hepatitis C antibody , confirmatory test Dilated Retinal Exam [facility] Start: 02-15-2022 Influenza vaccination Flu vaccine (# 1) [facility] Start: 12-01-2021 Patient discharge [facility] Work Phone: Start: 08-04-2021 Hemoglobin A1c/Hemoglobin.total in Blood HbA1C [facility] Start: 02-24-2020 Pneumococcal Vaccine : 65+ (2 - PCV) Pneumococcal Vaccine: 65+ (2 - PCV) [facility] Start: 11-04-2017 End: 11-04-2017 Appointment Appointment [facility] Work Phone: Start: 11-01-2017 End: 11-01-2017 Appointment Appointment [facility] Work Phone: Start: 10-30-2017 End: 10-30-2017 Appointment Appointment [facility] Work Phone: Start: 10-28-2017 End: 10-28-2017 Appointment Appointment [facility] Work Phone: Start: 2017 Hepatitis B Vaccine (1 of 3 - Risk 3-dose series) Hepatitis B Vaccine (1 of 3 - Risk 3-dose series) [facility] Start: 2017 RSV Vaccine (1 - 1-d ose 60+ series) RSV Vaccine (1 - 1-dose 60+ series) [facility] Start: 2017 RSV Vaccine (1 - Ris k 60-74 years 1-dose series) RSV Vaccine (1 - Risk 60-74 years 1-dose series) [facility] Start: 07-11-2015 Shingles vaccine (2 of 3) Shingles vaccine (2 of 3) [facility] Start: 2002 Cologuard (FIT-DNA) Cologuard (FIT-D NA) [facility] Start: [address] COLONOGRAPHY [facility] Start: 2002 Fecal Occult Blood Fecal Occult Bloo d [facility] Start: 2002 Screening for malign ant neoplasm of colon [facility] Start: 2002 SIGMOIDOSCOPY SIGMOIDOSCOPY [facility] Start: 1997 Prostate specific antigen measurement Prostate Specific Antigen (PSA) Screening or Monitoring [facility] Start: 1976 DTaP/Tdap/Td vaccine (1 - Tdap) DTaP/Tdap/Td vaccine (1 - Tdap) [facility] Start: 09-02-1975 Anxiety Screening Anxiety Screening [facility] Start: 09-02-1975 BP Controlled (<130/80) BP Controlle d (<130/80) [facility] Start: 09-02-1975 Depression Screening Depression Scre ening [facility] Start: 09-02-1975 Hepatitis C screening Hepatitis C sc reen [facility] Start: 1972 HIV screening HIV screen [facility] Start: 1969 Depression Screen Depression Screen [facility] Start: 09-02-1967 Lipid panel Lipids [facility] Start: 03-04-1958 COVID-19 Vaccine (#1) COVID-19 Vacci ne (#1) [facility] Patient Education [facility] Work Phone: Patient referral [facility] Work Phone: [facility] Immunizations Immunization Date Immunization Notes Care Provider Leeann emery 05-05-2021 COVID-19 original vaccine, age 12+ yr, monovalent (PFIZER-BIONTECH - PURPLE TOP) Xi Peña MD Work Phone: [facility] 05-05-2021 influenza, injectabl e, quadrivalent, contains preservative Xi Peña MD Work Phone: [facility] 05-05-2021 zoster vaccine recombinant Xi Peña MD Work Phone: [facility] 05-05-2021 influenza virus vacc ine, unspecified formulation Xi Peña MD Work Phone: [facility] 11-01-2020 COVID-19 original vaccine, age 12+ yr, monovalent (PFIZER-BIONTECH - PURPLE TOP) Xi Peña MD Work Phone: [facility] 09-30-2020 COVID-19 original vaccine, age 12+ yr, monovalent (PFIZER-BIONTECH - PURPLE TOP) Xi Peña MD Work Phone: [facility] Work Phone: 01-26-2020 zoster vaccine recombinant Xi Peña MD Work Phone: [facility] 03-26-2019 influenza, injectabl e, quadrivalent, contains preservative Xi Peña MD Work Phone: [facility] 03-26-2019 tetanus toxoid, redu patricia diphtheria toxoid, and acellular pertussis vaccine, adsorbed Xi Peña MD Work Phone: [facility] 02-23-2019 pneumococcal polysaccharide vaccine, 23 valent Xi Peña MD Work Phone: [facility] 05-16-2015 zoster vaccine, live Xi martines MD Work Phone: [facility] Work Phone: 03-18-2015 zoster vaccine, live Xi martines MD Work Phone: [facility] Work Phone: No information available. Ada Montoya BANKRUPTCY JUDGE [facility] Work Phone: Payers Date Payer Category Payer Self-pay [id number] 2022 Medicare UHC AARP MEDICAR E [facility] MEDICARE HMO [id number] 2022-Present [phone] [address] [address] [place] [address] HMO [id number] 2022 Medicare (Managed Care) [facility] MEDICARE HMO [id number] 2022 Unknown [id number] 2021 Unknown LIMITED BENEFITS PLAN [employer] [id number] 2021-Present [phone] [address] [address] [place] [address] Other [id number] 2014 Private Health Insurance KASSY BARNETT [id number] 2014-Present [phone] [address] [place] [address] [id number] Private Health Insurance Unknown [id number] Unknown [id number] Unknown [id number] Unknown [id number] Social History Date Type Detail Facility Start: 10-28-2017 End: 10-28-2017 Assertion Unknown if ever smoked [facility] Work Phone: Start: 1955 Sex Assigned At Male [facility] Start: 03-15-2016 End: 03-27-2023 Tobacco smoking status NHIS Never smoked tobacco [facility] Work Phone: Start: 03-15-2016 End: 03-27-2023 Tobacco use and exposure Smokeless tobacco non-user [facility] Work Phone: Start: 12-25-2018 Alcohol intake Current drinke r of alcohol (finding) [facility] Work Phone: Start: 03-15-2016 History SDOH Alcohol Comment social [facility] Work Phone: Start: 1955 Sex Assigned At Not on file [facility] Work Phone: Start: 03-27-2023 End: 11-17-2024 Alcohol intake Ex-drinker (finding) [facility] Start: 10-08-2018 End: 03-27-2023 History of Social function [facility] Start: 10-08-2018 End: 03-27-2023 Tobacco use panel [facility] Start: 05-18-2012 Adult Depression Screening Assessment 0 [facility] Start: 12-12-2011 Alcohol Comment rarely [facility] Start: 09-18-2024 Sex Male (finding) [facility] NEGATED: Highlighted rowStart: 10-28-2017 End: 10-28-2017 How many days of moderate to strenuous exercise, like a brisk walk, did you do in the last 7 days? EXERCISEFREQ 4 days per week [facility] Work Phone: Medical Equipment Procedure Code Equipment Code Equipment Origin al Text Equipment Identifier Dates [id number], [id number], [id number] Start: 04-12-2020 End: 11-17-2024 Comment on above: 8 mm, 4 times daily Goals Date Patient Goal Desired Activity /State Functional Status Date Assessment Result Facility 07-13-2014 Are you deaf, or do you have serious difficulty hearing No 07/13/2014 8:05 AM Catrina Ramírez OCCA No [facility] 07-13-2014 Are you blind, or do you have serious difficulty seeing, even when wearing glasses No 07/13/2014 8:05 AM Catrina Ramírez OCCA No [facility] 07-13-2014 Do you have serious difficulty walking or climbing stairs Yes 07/13/2014 8:05 AM Catrina Ramírez OCCA Yes [facility] 07-13-2014 Do you have difficul ty dressing or bathing No 07/13/2014 8:05 AM Catrina Ramírez OCCA No [facility] 07-13-2014 Because of a physica l, mental, or emotional condition, do you have difficulty doing errands alone such as visiting a physician's office or shopping No 07/13/2014 8:05 AM Catrina Ramírez OCCA No [facility] Mental Status Date Assessment Result Facility 09-18-2024 Cognitive function Level Of Cons ciousness Awake;Alert;Appropriate;Fol lows Commands [facility] Work Phone: 12-01-2021 Cognitive function Voice/Name;Touch/Shaki ng [facility] Work Phone: 07-13-2014 Because of a physica l, mental, or emotional condition, do you have serious difficulty concentrating, remembering, or making decisions No 07/13/2014 8:05 AM IRVING Catrina Ibrahim OCCA Romana [facility] Clinical Notes 08-03-2010 to 02-01-2025 Telephone Encounter - Sander Hammond APRN.CNP - 02/01/2025 4:59 PM EDTTelephone Encounter - Sander Hammond APRN.CNP - 02/01/2025 4:59 PM EDTPatient InstructionsPatient Instructions Note Date & Type Note Facility 02-01-2025 Telephone encounter Note Noted. Thank you [facility] 02-01-2025 Miscellaneous Notes Noted. Thank you Received a VM from Araceli at [facility] stating that the patient has just established care with Elizabeth Phillips NP today. Araceli stated they can cover the medication's that patient was on before to help control his diabetes. Elizabeth Phillips NP was wanting to get the patient in to see Dr. Peña sooner than the 06/22/25 appointment. Called Araceli back at [phone] ext. [phone] to let her know that the patient does have an appointment with our SUPERVISOR HOME ENERGY CONSULTANT, Sander Hammond on 02/19/[address] Peña is now booking out into 09/2025. Araceli stated she was going to let Elizabeth Francisco NP know that patient has an appointment with Sander on 02/19/25. Per Araceli we can e-script/fax the prescriptions to [phone] after patient sees Sander. This nurse told Araceli that this nurse would call the patient to remind him that he has an appointment with Sander Hammond NP on 02/19/25 at 0900. Called Traci at [phone] and spoke to him. Reminded patient that he had an appointment with Sander Hammond NP on 02/19/25 at 0900. Patient stated he had forgot but he is going to write it down. [facility] called and [facility] and [facility] and help him get back onto Ozempic. Just wanted to update documented in this encounter [facility] 01-29-2025 Telephone encounter Note Received a VM from Araceli at [facility] stating that the patient has just established care with Elizabeth Phillips NP today. Araceli stated they can cover the medication's that patient was on before to help control his diabetes. Elizabeth Phillips NP was wanting to get the patient in to see Dr. Peña sooner than the 06/22/25 appointment. Called Araceli back at [phone] ext. [phone] to let her know that the patient does have an appointment with our SUPERVISOR HOME ENERGY CONSULTANT, Sander Hammond on 02/19/[address] Peña is now booking out into 09/2025. Araceli stated she was going to let Elizabeth Francisco NP know that patient has an appointment with Sander on 02/19/25. Per Araceli we can e-script/fax the prescriptions to [phone] after patient sees Sander. This nurse told Araceli that this nurse would call the patient to remind him that he has an appointment with Sander Hammond NP on 02/19/25 at 0900. Called Traci at [phone] and spoke to him. Reminded patient that he had an appointment with Sander Hammond NP on 02/19/25 at 0900. Patient stated he had forgot but he is going to write it down. [facility] 01-29-2025 Telephone encounter Note Patient called and stated [facility] and [facility] are going [facility] try and help him get back onto Ozempic. Just wanted to update [facility] 11-30-2024 Telephone encounter Note Called patient at [phone] and received VM. Left a detailed VM that he was approved for Mounjaro. Patient should reach out to the pharmacy to have them reprocess the medication. Mounjaro should be a lower limon and if not he should reach out to the office. Closed [facility] 11-30-2024 Miscellaneous Notes Called patient at [phone] and received VM. Left a detailed VM that he was approved for Mounjaro. Patient should reach out to the pharmacy to have them reprocess the medication. Mounjaro should be a lower limon and if not he should reach out to the office. Closed Jimmy Phan, Great news!! We have received notification that the Mounjaro has been approved. Please notify your pharmacy if you have not already picked up the medication. Spoke with Traci Limon on November 27, 2024. Informed of results / instructions as stated above. Allison Rao MA Please tell him it needs a PA and we should wait and see if the cost changes if that is approved. Thank you Patient is referring to [facility]. Patient will need a PA. It has been sent to PA team. Patient calling in stating that the medication that was prescribed was over $400.00 and he can not afford that. Please call patient with plan of care. He does not use MyChart. documented in this encounter [facility] 11-30-2024 Telephone encounter Note Jimmy Phan, Great news!! We have received notification that the Mounjaro has been approved. Please notify your pharmacy if you have not already picked up the medication. [facility] 11-30-2024 Telephone encounter Note Images from the original note were not included. Jimmy Phan, Great news!! We have received notification that the Mounjaro has been approved. Please notify your pharmacy if you have not already picked up the medication. Patient has no Active Mychart Thank you, [facility] 11-30-2024 Miscellaneous Notes Images from the original note were not included. Jimmy Phan, Great news!! We have received notification that the Mounjaro has been approved. Please notify your pharmacy if you have not already picked up the medication. Patient has no Active Mychart Thank you, documented in this encounter [facility] 11-27-2024 Telephone encounter Note Initiated PA for Mounjaro through [employer] Questions Completed/Notes/Labs Attached Waiting for determination Gita Prior Authorization [facility] 11-27-2024 Miscellaneous Notes Initiated PA for Mounjaro through [employer] Questions Completed/Notes/Labs Attached Waiting for determination Gita Prior Authorization [facility] documented in this encounter [facility] 11-27-2024 Telephone encounter Note Spoke with Traci Limon on November 27, 2024. Informed of results / instructions as stated above. Allison Rao MA [facility] 11-23-2024 Telephone encounter Note Please tell him it needs a PA and we should wait and see if the cost changes if that is approved. Thank you [facility] 11-23-2024 Telephone encounter Note Patient is referring to [facility]. Patient will need a PA. It has been sent to PA team. [facility] 11-23-2024 Telephone encounter Note Patient calling in stating that the medication that was prescribed was over $400.00 and he can not afford that. Please call patient with plan of care. He does not use MyChart. [facility] 11-17-2024 Instructions Sander Hammond APRN.CNP - 11/17/2024 8:18 AM EDT Continue metformin 1,000 mg twice a day breakfast and dinner Continue lantus: Am 32 units PM 32 units Start Mounjaro 2.5 mg weekly x 4 wks then increase to 5 mg weekly. Start Humalog per the scale below at the three main meals: If Blood Glucose (mg/dL) is < 150 Give 0 units 151-200 Give 2 units 201-250 Give 4 units 251-300 Give 6 units 301-350 Give 8 units >351 Give 10 units Follow up in 3 and 6 months Sander Hammond, MSN, TELEVISION INSTALLER HELPER, SUPERVISOR HOME ENERGY CONSULTANT-C, [facility] Endocrinology [facility] Medical [facility]/[address] [place] [address] Fax: documented in this encounter [facility] 11-17-2024 History of Presen t illness Narrative Reason for Consultation: DM Type 2 Referring Physician: No referring provider defined for this encounter. HISTORY OF PRESENT ILLNESS Mr. Limon is a 69 year old male presenting here today for a follow up of DM Type 2. As I recall, he was initially diagnosed with diabetes at least age 57. Patient [address]. Peña; LV 10/01/23 A1C 11.4 on 11/05/24 at [facility] per patient. Up from 7.0 last year History of diabetes type 2, HTN, dyslipidemia, obesity Had a stressful year. with MS and difficulty getting around and been in/out of the hospital and has falls. Had 8 deaths in his family this past year. Stopped working out but resumed last week. Current diabetes regimen is as follows: Metformin 1,000 mg BID Ozempic 1 mg weekly --stopped due to cost--went from $47 to 200's Lantus 32 units BID Novolog TID meals SS #2 --has not been using. Previous DM medication: None he is checking his blood glucose with hi 3 plus CGM--no reader today he does bring a log book today for review. TAJ Blood Sugar Frequency: Fasting 140 to 150's During the day 200's Hypoglycemia frequency:denies Hypoglycemia awareness: Yes Regarding symptoms of hypoglycemia, he is not experiencing any symptoms such as polyuria, polydipsia, nocturia or rapid weight loss or blurry vision, Overall, the patient has no acute complaints at this time. PAST MEDICAL HISTORY Diagnosis Date Arthritis of knee, left 07/03/2010 Arthritis of knee, right 07/03/2010 Diabetes (HCC) Hyperchloremia Hypertension PAST SURGICAL HISTORY Procedure Laterality Date KNEE BILATERAL OP SURGERY TONSILLECTOMY HX FAMILY HISTORY Problem Relation Age of Onset Alzheimer's Disease Mother No Ocular Disease Mother other (lung cancer) Mother Heart Attack Father No Ocular Disease Father Diabetes Sister Diabetes Brother Diabetes Sister Diabetes Sister Social History Tobacco Use Smoking status: Never Smokeless tobacco: Never Substance Use Topics Alcohol use: Not Currently Comment: rarely Drug use: No Allergies As of Date: 11/17/2024 (No Known Allergies) Fully Assessed 11/17/2024 Current Outpatient Medications Medication Sig Dispense Refill lisinopril-hydroCHLOROthiazide (ZESTORETIC) 20-25 mg per tablet Take 1 tablet by mouth once daily. 90 tablet 3 flash glucose scanning reader (FREESTYLE HI 3 READER) Use continuously to monitor glucose, IDDM, E11.9 1 Each 0 atorvastatin (LIPITOR) 20 mg tablet TAKE 1 TABLET BY MOUTH EVERY DAY 90 tablet 4 MEDICATION, NON-DATABASE Neugenix Total T supplement Diabetes Pen [place] Use as directed once a day. 100 Device 5 Zinc 50 mg tab Take 50 mg by mouth once daily. aspirin, enteric coated (ASPIRIN, ENTERIC COATED) 81 mg EC tablet Take 81 mg by mouth once daily. [START ON 12/10/2024] tirzepatide (MOUNJARO) 5 mg/0.5 mL pen injector Inject 5 mg subcutaneously one time a week. Patient should start on December 10, 2024. 2 mL 5 tirzepatide (MOUNJARO) 2.5 mg/0.5 mL pen injector Inject 2.5 mg subcutaneously one time a week. X 4 wks then increase to 5 mg weeky 2 mL 0 metFORMIN (GLUCOPHAGE) 1,000 mg tablet Take 1 tablet by mouth two times a day with meals. 180 tablet 3 insulin glargine (LANTUS SOLOSTAR U-100 INSULIN) 100 unit/mL (3 mL) Inject 32 units subcutaneously two times a day. 60 mL 3 Blood-Glucose Sensor (FREESTYLE HI 3 PLUS SENSOR) demond Use to monitor glucose continuously. Change every 15 days. Insulin dependent; E11.9 6 each 3 insulin lispro (HUMALOG KWIKPEN INSULIN) 100 unit/mL Inject subcutaneously TID meals up to 30 units daily 30 mL 3 insulin needles, DISPOSABLE, (BD INSULIN PEN NEEDLE UF) 31 gauge x 5/16 Use 4 pen needles daily 360 each 3 amLODIPine (NORVASC) 5 mg tablet Take 1 tablet by mouth once daily. 90 tablet 3 No current facility-administered medications for this visit. REVIEW OF SYSTEMS Review of Systems Respiratory: Negative for difficulty breathing. Cardiovascular: Negative for chest pain. Gastrointestinal: Negative for nausea, vomiting, diarrhea and constipation. PHYSICAL EXAMINATION BP 122/82 Pulse 79 Ht 177.8 cm (5' 10) Wt 112 kg (246 lb 14.6 oz) SpO2 100% BMI 35.43 kg/m2 Physical Exam Constitutional: Appearance: Normal appearance. He is obese. Cardiovascular: Rate and Rhythm: Normal rate and regular rhythm. Pulmonary: Effort: Pulmonary effort is normal. Breath sounds: Normal breath sounds. Skin: General: Skin is warm and dry. Neurological: Mental Status: He is alert and oriented to person, place, and time. Psychiatric: Mood and Affect: Mood normal. Behavior: Behavior normal. DATA Creatinine Date Value Ref Range Status 05/04/2021 0.75 0.73 - 1.22 mg/dL Final Hemoglobin A1C (%) Date Value 11/05/2024 11.4 05/04/2021 8.9 Hemoglobin A1C (POCT) (%) Date Value 10/01/2023 7.0 ) No components found for: URINEALBUMIN Cholesterol, Total (mg/dL) Date Value 05/04/2021 139 HDL Cholesterol (mg/dL) Date Value 05/04/2021 49 LDL Cholesterol, Calculated (mg/dL) Date Value 05/04/2021 52 Triglyceride (mg/dL) Date Value 05/04/2021 189 IMPRESSION: Mr. Limon is a 69 year old male here for evaluation of DM Type 2 complicated by hypertension, hyperlipidemia, obesity RECOMMENDATIONS: (E11.9, Z79.4) Type 2 diabetes mellitus without complication, with long-term current use of insulin ([facility]) (primary encounter diagnosis) Comment: Glycemic control has deteriorated. Will check to see if GLP1 is more cost friendly. Resume novolog SS. Plan: tirzepatide (MOUNJARO) 5 mg/0.5 mL pen injector, tirzepatide (MOUNJARO) 2.5 mg/0.5 mL pen injector, metFORMIN (GLUCOPHAGE) 1,000 mg tablet, insulin glargine (LANTUS SOLOSTAR U-100 INSULIN) 100 unit/mL (3 mL), Blood-Glucose Sensor (FREESTYLE HI 3 PLUS SENSOR) demond, insulin lispro (HUMALOG KWIKPEN INSULIN) 100 unit/mL, insulin needles, DISPOSABLE, (BD INSULIN PEN NEEDLE UF) 31 gauge x 5/16, Continue metformin 1,000 mg twice a day breakfast and dinner Continue lantus: Am 32 units PM 32 units Start Mounjaro 2.5 mg weekly x 4 wks then increase to 5 mg weekly. Start Humalog per the scale below at the three main meals: If Blood Glucose (mg/dL) is < 150 Give 0 units 151-200 Give 2 units 201-250 Give 4 units 251-300 Give 6 units 301-350 Give 8 units >351 Give 10 units Follow up in 3 and 6 months (E66.812) Obesity, Class II, BMI 35-39.9 Comment: Body mass index is 35.43 kg/m . Plan: Encouraged increase dietary and exercise efforts as able (I10) Hypertension, essential Comment/Plan: amLODIPine (NORVASC) 5 mg tablet He was advised to continue follow up with PCP but rx was sent for him as requested. He is also on an FREDA--lisinopril (E78.2) Hyperlipidemia, mixed Comment/Plan: continue atorvastatin per PCP Medical Decision Making: Level: 4 - Moderate Sander Hammond, MSN, TELEVISION INSTALLER HELPER, SUPERVISOR HOME ENERGY CONSULTANT-C, [facility] Endocrinology [facility] Medical Office Building/[address], [address] [place] [address] Fax: documented in this encounter [facility] 11-17-2024 Note HNO ID: [id number] Author: SANDER HAMMOND APRN.CAGE UNLOADER Service: ? Author Type: Nurse Practitioner Type: Progress Notes Filed: 11/17/2024 09:00 Note Text: Reason for Consultation: DM Type 2 Referring Physician: No referring provider defined for this encounter. HISTORY OF PRESENT ILLNESS Mr. Limon is a 69 year old male presenting here today for a follow up of DM Type 2. As I recall, he was initially diagnosed with diabetes at least age 57. Patient of [address]. Peña; LV 10/01/23 A1C 11.4 on 11/05/24 at [facility] per patient. Up from 7.0 last year History of diabetes type 2, HTN, dyslipidemia, obesity Had a stressful year. with MS and difficulty getting around and been in/out of the hospital and has falls. Had 8 deaths in his family this past year. Stopped working out but resumed last week. Current diabetes regimen is as follows: Metformin 1,000 mg BID Ozempic 1 mg weekly --stopped due to cost--went from $47 to 200's Lantus 32 units BID Novolog TID meals SS #2 --has not been using. Previous DM medication: None he is checking his blood glucose with hi 3 plus CGM--no reader today he does bring a log book today for review. LDE Blood Sugar Frequency: Fasting 140 to 150's During the day 200's Hypoglycemia frequency:denies Hypoglycemia awareness: Yes Regarding symptoms of hypoglycemia, he is not experiencing any symptoms such as polyuria, polydipsia, nocturia or rapid weight loss or blurry vision, Overall, the patient has no acute complaints at this time. PAST MEDICAL HISTORY Diagnosis Date Arthritis of knee, left 07/03/2010 Arthritis of knee, right 07/03/2010 Diabetes (HCC) Hyperchloremia Hypertension PAST SURGICAL HISTORY Procedure Laterality Date KNEE BILATERAL OP SURGERY TONSILLECTOMY HX FAMILY HISTORY Problem Relation Age of Onset Alzheimer's Disease Mother No Ocular Disease Mother other (lung cancer) Mother Heart Attack Father No Ocular Disease Father Diabetes Sister Diabetes Brother Diabetes Sister Diabetes Sister Social History Tobacco Use Smoking status: Never Smokeless tobacco: Never Substance Use Topics Alcohol use: Not Currently Comment: rarely Drug use: No Allergies As of Date: 11/17/2024 (No Known Allergies) Fully Assessed 11/17/2024 Current Outpatient Medications Medication Sig Dispense Refill lisinopril-hydroCHLOROthiazide (ZESTORETIC) 20-25 mg per tablet Take 1 tablet by mouth once daily. 90 tablet 3 flash glucose scanning reader (FREESTYLE HI 3 READER) Use continuously to monitor glucose, IDDM, E11.9 1 Each 0 atorvastatin (LIPITOR) 20 mg tablet TAKE 1 TABLET BY MOUTH EVERY DAY 90 tablet 4 MEDICATION, NON-DATABASE Neugenix Total T supplement Diabetes Pen [place] Use as directed once a day. 100 Device 5 Zinc 50 mg tab Take 50 mg by mouth once daily. aspirin, enteric coated (ASPIRIN, ENTERIC COATED) 81 mg EC tablet Take 81 mg by mouth once daily. [START ON 12/10/2024] tirzepatide (MOUNJARO) 5 mg/0.5 mL pen injector Inject 5 mg subcutaneously one time a week. Patient should start on December 10, 2024. 2 mL 5 tirzepatide (MOUNJARO) 2.5 mg/0.5 mL pen injector Inject 2.5 mg subcutaneously one time a week. X 4 wks then increase to 5 mg weeky 2 mL 0 metFORMIN (GLUCOPHAGE) 1,000 mg tablet Take 1 tablet by mouth two times a day with meals. 180 tablet 3 insulin glargine (LANTUS SOLOSTAR U-100 INSULIN) 100 unit/mL (3 mL) Inject 32 units subcutaneously two times a day. 60 mL 3 Blood-Glucose Sensor (FREESTYLE HI 3 PLUS SENSOR) demond Use to monitor glucose continuously. Change every 15 days. Insulin dependent; E11.9 6 each 3 insulin lispro (HUMALOG KWIKPEN INSULIN) 100 unit/mL Inject subcutaneously TID meals up to 30 units daily 30 mL 3 insulin needles, DISPOSABLE, (BD INSULIN PEN NEEDLE UF) 31 gauge x 16 Use 4 pen needles daily 360 each 3 amLODIPine (NORVASC) 5 mg tablet Take 1 tablet by mouth once daily. 90 tablet 3 No current facility-administered medications for this visit. REVIEW OF SYSTEMS Review of Systems Respiratory: Negative for difficulty breathing. Cardiovascular: Negative for chest pain. Gastrointestinal: Negative for nausea, vomiting, diarrhea and constipation. PHYSICAL EXAMINATION BP 122/82 Pulse 79 Ht 177.8 cm (5' 10) Wt 112 kg (246 lb 14.6 oz) SpO2 100% BMI 35.43 kg/m2 Physical Exam Constitutional: Appearance: Normal appearance. He is obese. Cardiovascular: Rate and Rhythm: Normal rate and regular rhythm. Pulmonary: Effort: Pulmonary effort is normal. Breath sounds: Normal breath sounds. Skin: General: Skin is warm and dry. Neurological: Mental Status: He is alert and oriented to person, place, and time. Psychiatric: Mood and Affect: Mood normal. Behavior: Behavior normal. DATA Creatinine Date Value Ref Range Status 05/04/2021 0.75 0.73 - 1.22 mg/dL Final Hemoglobin A1C (%) Date Value 11/05/2024 11.4 05/04/2021 8.9 Hemoglobin A1C (POC (more content not included)... [facility] 10-26-2024 Telephone encounter Note Most recent Endocrinology visit: Last encounter Visit on 10/01/2023 (with Xi Peña) ROLAND: 10/01/23--with Dr. Peña NOV: 11/17/24--with Sander Please send for Dr. Peña while he is out of the office. Thank you 03/27/2023 in [facility] with XI PEÑA for Poorly controlled type 2 diabetes mellitus (HCC) 06/27/2023 in [facility] with SANDER HAMMOND for Type 2 diabetes mellitus without complication, with long-term current use of insulin (HCC) 10/01/2023 in [facility] with XI PEÑA for Type 2 diabetes mellitus without complication, with long-term current use of insulin (HCC) Upcoming Endocrinology Appointments - Next 365 Days Visit Type Date Time Department EST ELIZ PATIENT 11/17/2024 8:00 AM [facility] Requested Prescriptions Pending Prescriptions Disp Refills metFORMIN (GLUCOPHAGE) 1,000 mg tablet [Pharmacy Med Name: METFORMIN HCL 1,000 MG TABLET] 60 tablet 0 Sig: take 1 tablet by mouth twice a day with meals Hemoglobin A1c: None on file in the last 12 months TSH: None on file in the last 12 months Free T3: None on file in the last 12 months Free T4: None on file in the last 12 months Thyroglobulin: None on file in the last 12 months Vitamin D: None on file in the last 12 months Hematocrit: None on file in the last 12 months Creatinine: None on file in the last 12 months eGFR: None on file in the last 12 months Potassium: None on file in the last 12 months Testosterone: None on file in the last 12 months IGF: None on file in the last 12 months Prolactin: None on file in the last 12 months [facility] 10-26-2024 Miscellaneous Notes Most recent Endocrinology visit: Last encounter Visit on 10/01/2023 (with Xi Peña) ROLAND: 10/01/23--with Dr. Peña NOV: 11/17/24--with Sander Please send for Dr. Peña while he is out of the office. Thank you 03/27/2023 in [facility] with XI PEÑA for Poorly controlled type 2 diabetes mellitus (HCC) 06/27/2023 in [facility] with SANDER HAMMOND for Type 2 diabetes mellitus without complication, with long-term current use of insulin (HCC) 10/01/2023 in [facility] with XI PEÑA for Type 2 diabetes mellitus without complication, with long-term current use of insulin (HCC) Upcoming Endocrinology Appointments - Next 365 Days Visit Type Date Time Department EST ELIZ PATIENT 11/17/2024 8:00 AM [facility] Requested Prescriptions Pending Prescriptions Disp Refills metFORMIN (GLUCOPHAGE) 1,000 mg tablet [Pharmacy Med Name: METFORMIN HCL 1,000 MG TABLET] 60 tablet 0 Sig: take 1 tablet by mouth twice a day with meals Hemoglobin A1c: None on file in the last 12 months TSH: None on file in the last 12 months Free T3: None on file in the last 12 months Free T4: None on file in the last 12 months Thyroglobulin: None on file in the last 12 months Vitamin D: None on file in the last 12 months Hematocrit: None on file in the last 12 months Creatinine: None on file in the last 12 months eGFR: None on file in the last 12 months Potassium: None on file in the last 12 months Testosterone: None on file in the last 12 months IGF: None on file in the last 12 months Prolactin: None on file in the last 12 months documented in this encounter [facility] 09-28-2024 Telephone encounter Note Received a VM from patient stating that there was insulin on his chart? Called patient and received his VM. Called [facility] and they stated that generic Semglee needed a PA--our PA section stated that it was not required but in the questions it showed that Lantus covered. Had the pharmacy run a test claim for Lantus and they stated it was covered under insurance. Gave a verbal order so patient could get his insulin. Called and spoke to patient to let him know they were getting the Lantus ready for him so he can pick it up today. Attached is RX for Lantus. Please send. [facility] 09-28-2024 Miscellaneous Notes Received a VM from patient stating that there was insulin on his chart? Called patient and received his VM. Called [facility] and they stated that generic Semglee needed a PA--our PA section stated that it was not required but in the questions it showed that Lantus covered. Had the pharmacy run a test claim for Lantus and they stated it was covered under insurance. Gave a verbal order so patient could get his insulin. Called and spoke to patient to let him know they were getting the Lantus ready for him so he can pick it up today. Attached is RX for Lantus. Please send. documented in this encounter [facility] 09-22-2024 Telephone encounter Note At 1012 today Retrieved a VM from patient from yesterday afternoon left at 1416. Patient stated that he was currently out of insulin pen needles, and his glucose is >300. Noted that a prescription was sen yesterday 09/21/24 for pen needles as there was already a prescription request. Contacted the pharmacy, they stated the the pen needles needed to be ordered. Their system noted that would be arriving today and patient will be auto notified when they arrive, but should be there this afternoon. Called and left a detailed VM for patient at [phone] of the above information but also informed him that in the future he can also purchase OTC pen needles without a prescription at any local pharmacy in very low quantities he he is in need emergently to avoid running out and so he can always be able to administer insulin. Closed. [facility] 09-22-2024 Miscellaneous Notes At 1012 today Retrieved a VM from patient from yesterday afternoon left at 1416. Patient stated that he was currently out of insulin pen needles, and his glucose is >300. Noted that a prescription was sen yesterday 09/21/24 for pen needles as there was already a prescription request. Contacted the pharmacy, they stated the the pen needles needed to be ordered. Their system noted that would be arriving today and patient will be auto notified when they arrive, but should be there this afternoon. Called and left a detailed VM for patient at [phone] of the above information but also informed him that in the future he can also purchase OTC pen needles without a prescription at any local pharmacy in very low quantities he he is in need emergently to avoid running out and so he can always be able to administer insulin. Closed. documented in this encounter [facility] 09-21-2024 Telephone encounter Note Patient is scheduled 11.17.2024. Patient stated he is completely out of the medications and was in the hospital Saturday because of being without. He is requesting that these prescriptions be sent shiraz. Please advise. Thank you. [facility] 09-21-2024 Miscellaneous Notes Patient is scheduled 11.17.2024. Patient stated he is completely out of the medications and was in the hospital Saturday because of being without. He is requesting that these prescriptions be sent shiraz. Please advise. Thank you. 1st attempt: I called this patient and LVM that an appointment needed scheduled. I will postpone and follow up on this ROLAND: 10/01/23--with Dr. Peña NOV: 03/30/24--patient was cancelled for provider being unavailable. Patient needs a follow up appointment. Pharmacy verified in Epic Patient has been identified by name and date of : Yes Patient aware RX will be sent to pharmacy. No need to notify patient. Patient phones for refill(s): Requested Prescriptions Pending Prescriptions Disp Refills insulin glargine-yfgn (SEMGLEE,INSULIN GLARG-YFGN,PEN) 100 unit/mL (3 mL) insulin pen 60 mL 3 Sig: Inject 32 Units subcutaneously two times a day. insulin needles, DISPOSABLE, (BD INSULIN PEN NEEDLE UF) 31 gauge x 5/16 120 Each 3 Si mm, 4 times daily Date of last office visit : 10/01/2023 Date of next office visit : Visit date not found Last 2 Encounter Wt Readings: Date: Wt: 10/01/2023 113.2 kg (249 lb 9 oz) 06/27/2023 111.2 kg (245 lb 2.4 oz) Not applicable Please advise. Racquel Leal documented in this encounter [facility] 09-17-2024 Telephone encounter Note 1st attempt: I called this patient and LVM that an appointment needed scheduled. I will postpone and follow up on this [facility] 09-16-2024 Telephone encounter Note ROLAND: 10/01/23--with Dr. Peña NOV: 03/30/24--patient was cancelled for provider being unavailable. Patient needs a follow up appointment. [facility] 09-16-2024 Telephone encounter Note Pharmacy verified in [facility] Patient has been identified by name and date of : Yes Patient aware RX will be sent to pharmacy. No need to notify patient. Patient phones for refill(s): Requested Prescriptions Pending Prescriptions Disp Refills insulin glargine-yfgn (SEMGLEE,INSULIN GLARG-YFGN,PEN) 100 unit/mL (3 mL) insulin pen 60 mL 3 Sig: Inject 32 Units subcutaneously two times a day. insulin needles, DISPOSABLE, (BD INSULIN PEN NEEDLE UF) 31 gauge x /16 120 Each 3 Si mm, 4 times daily Date of last office visit : 10/01/2023 Date of next office visit : Visit date not found Last 2 Encounter Wt Readings: Date: Wt: 10/01/2023 113.2 kg (249 lb 9 oz) 06/27/2023 111.2 kg (245 lb 2.4 oz) Not applicable Please advise. Racquel Leal [facility] 03-19-2024 Telephone encounter Note Spoke with Traci Limon on March 19, 2024. Informed of results / instructions as stated above. Allison Rao MA [facility] 03-19-2024 Miscellaneous Notes Spoke with Traci Limon on March 19, 2024. Informed of results / instructions as stated above. Allison Rao MA Hi 3 plus rx sent. Thank you Called [facility] and they will no longer carry the Hi 3 sensors. They will carry the Hi 3 Plus. They did a test claim and it was covered by insurance. They need RX sent. The form was discarded because we can send it electronically. Send this back and we will notify patient. Form on hold for now. The form says Hi 3 is being discontinued and to send RX for Hi 3 plus. Have to call pharmacy because this is not true. Form on docs desk/basket [facility]. Please review and sign. Needs to be faxed to [phone]. documented in this encounter [facility] 03-19-2024 Telephone encounter Note Hi 3 plus rx sent. Thank you [facility] 03-19-2024 Telephone encounter Note Called [facility] and they will no longer carry the Hi 3 sensors. They will carry the Hi 3 Plus. They did a test claim and it was covered by insurance. They need RX sent. The form was discarded because we can send it electronically. Send this back and we will notify patient. [facility] 03-19-2024 Telephone encounter Note Form on hold for now. The form says Hi 3 is being discontinued and to send RX for Hi 3 plus. Have to call pharmacy because this is not true. [facility] 03-19-2024 Telephone encounter Note Form on docs desk/basket for review from Ann Julian. Please review and sign. Needs to be faxed to [phone]. [facility] 12-02-2023 Telephone encounter Note Prescription Refill Information The patient has been identified by name and date of : Yes Caregiver verified no other encounters exist for this prescription request: Yes Caregiver confirmed with patient/requestor that no other refills are due, in the near future, with this provider at this time: Yes The last office visit in the department: 10.01.2023 Does the patient have a future office visit with this provider/department: Yes 04.01.2024 Requested Prescriptions Pending Prescriptions Disp Refills insulin glargine-yfgn (SEMGLEE,INSULIN GLARG-YFGN,PEN) 100 unit/mL (3 mL) insulin pen 60 mL 3 Sig: Inject 32 Units subcutaneously two times a day. Minna Ashton December 02, 2023 12:08 PM [facility] 12-02-2023 Miscellaneous Notes Prescription Refill Information The patient has been identified by name and date of : Yes Caregiver verified no other encounters exist for this prescription request: Yes Caregiver confirmed with patient/requestor that no other refills are due, in the near future, with this provider at this time: Yes The last office visit in the department: 10.01.2023 Does the patient have a future office visit with this provider/department: Yes 04.01.2024 Requested Prescriptions Pending Prescriptions Disp Refills insulin glargine-yfgn (SEMGLEE,INSULIN GLARG-YFGN,PEN) 100 unit/mL (3 mL) insulin pen 60 mL 3 Sig: Inject 32 Units subcutaneously two times a day. Minna Ashton December 02, 2023 12:08 PM documented in this encounter [facility] 10-01-2023 Instructions Xi Peña MD - 10/01/2023 3:09 PM EDT - Continue metformin 1000 mg twice a day - Continue Ozempic 1 mg once a week - Continue Lantus 32 units twice a day - Continue Novolog based on the sliding scale 3 times a day with meals If Blood Glucose (mg/dL) is 111-150 Give 0 units 151-200 Give 2 unit 201-250 Give 4 units 251-300 Give 6 units 301-350 Give 8 units 351-400 Give 10 units - Follow up with Sander in 6 months and with me in 1 year - Abbot support for Hi sensor issues [phone] documented in this encounter [facility] 10-01-2023 History of Presen t illness Narrative Images from the original note were not included. ENDOCRINOLOGY CLINIC NOTE Mr. Limon is a 68 year old male with HTN and T2DM presented for follow-up of T2DM. HPI He was diagnosed with diabetes > 10 years ago. We started him on Ozempic in 03/2023 with improvement in his glycemic control A1c: 9.2% on 03/26/2023 05/04/21 14:12 06/27/23 13:34 10/01/23 14:49 Hemoglobin A1C 8.9 (H) Hemoglobin A1C (POCT) 7.4 ! 7.0 ! Current regimen: Metformin 1000 mg twice a day Ozempic 1 mg once a week Lantus 32 units twice a day NovoLog medium dose scale 3 times a day with meals (but does no use it often) Home glucose monitoring: The patient's continuous glucose monitoring device was downloaded, interpreted by myself and recommendations were discussed with the patient. The following data was obtained: Average glucose: 139 mg/dl Standard Deviation 30.7% Estimated HbA1c: -% Serious hypoglycemia (<55 mg/dl): 0% Hypoglycemia (<70 mg/dl): 0% Values in target (70-180 mg/dl): 87% Hyperglycemia (>180 mg/dl): 8% Serious hyperglycemia (>250 mg/dl): 5% CGM active 14% of the time Time evaluated: 14 days Diet: He eats 3 main meals Physical activity: Stationary bike and treadmill Complications: Retinopathy: last eye exam was in 01/2023 with no reported retinopathy Nephropathy: Normal GFR in 04/2021 Neuropathy: R foot numbness in the R foot after foot surgery CVS: lipid profile: 04/2021, LDL 52, TG 189 on atorvastatin 20 mg BP: 130/82 PAST MEDICAL HISTORY Diagnosis Date Arthritis of knee, left 07/03/2010 Arthritis of knee, right 07/03/2010 Diabetes (HCC) Hyperchloremia Hypertension PAST SURGICAL HISTORY Procedure Laterality Date KNEE BILATERAL OP SURGERY TONSILLECTOMY HX FAMILY HISTORY Problem Relation Age of Onset Alzheimer's Disease Mother No Ocular Disease Mother other (lung cancer) Mother Heart Attack Father No Ocular Disease Father Diabetes Sister Diabetes Brother Diabetes Sister Diabetes Sister Social History Tobacco Use Smoking status: Never Smokeless tobacco: Never Substance Use Topics Alcohol use: Not Currently Comment: rarely Drug use: No (Not in a hospital admission) Allergies As of Date: 10/01/2023 (No Known Allergies) Fully Assessed 10/01/2023 Current Outpatient Medications Medication Sig Dispense Refill semaglutide (OZEMPIC) 1 mg/dose (4 mg/3 mL) pen Inject 1 mg subcutaneously one time a week. 9 mL 3 insulin glargine-yfgn (SEMGLEE,INSULIN GLARG-YFGN,PEN) 100 unit/mL (3 mL) insulin pen Inject 32 Units subcutaneously two times a day. 60 mL 3 lisinopril-hydroCHLOROthiazide (ZESTORETIC) 20-25 mg per tablet Take 1 tablet by mouth once daily. 90 tablet 3 flash glucose scanning reader (FREESTYLE HI 3 READER) Use continuously to monitor glucose, IDDM, E11.9 1 Each 0 Blood-Glucose Sensor (FREESTYLE HI 3 SENSOR) demond Use one sensor every 14 days, IDDM, E11.9 2 Each 11 atorvastatin (LIPITOR) 20 mg tablet TAKE 1 TABLET BY MOUTH EVERY DAY 90 tablet 4 metFORMIN (GLUCOPHAGE) 1,000 mg tablet TAKE 1 TABLET BY MOUTH TWICE A DAY WITH MEALS 180 tablet 4 MEDICATION, NON-DATABASE Neugenix Total T supplement insulin needles, DISPOSABLE, (BD INSULIN PEN NEEDLE UF) 31 gauge x 5/16 8 mm, 4 times daily 120 Each 3 Diabetes Pen [place] Use as directed once a day. 100 Device 5 Zinc 50 mg tab Take 50 mg by mouth once daily. aspirin, enteric coated (ASPIRIN, ENTERIC COATED) 81 mg EC tablet Take 81 mg by mouth once daily. No current facility-administered medications for this visit. COMPLETE REVIEW OF SYSTEMS: 10 point review of systems was negative other than what is mentioned in the H&P PHYSICAL EXAM: 10/01/23 1446 BP: 130/82 Pulse: 103 Resp: 16 SpO2: 96% Weight: 113.2 kg (249 lb 9 oz) Height: 177.8 cm (5' 10) General: NAD, alert and cooperative HEENT: EOMI, no proptosis/stare. Neuro: Alert and oriented Psych: Normal affect Labs: As mentioned above Assessment and Recommendations: Mr. Limon is a pleasant 68-year-old man presented for follow up of T2DM. Our goal is to maintain an A1c at or below 7% to reduce the risks of diabetes related complications. There has been significant improvement and his diabetes is now under good control. We will continue with the same doses above. He had labs done recently and I asked him to bring them or fax them so that we can update his records He will follow-up with my colleague nurse in 6 months and with me in 1 year. Some of the above has been copied from prior documentation on 03/27/2023 but barry elements reviewed, confirmed, and/or updated by me (Xi Peña MD) on 10/01/2023 Medical Decision Making: Problems: Low: Stable chronic illness Risk: Moderate: Moderate risk from testing/treatment Medical Decision Making Level: 3 - Low This note was created using [employer] dictation software. You may find errors that were missed during proofreading. They are purely unintentional and if there are any concerns regarding this dictation, please do not hesitate to contact the dictating provider for clarification. Xi Peña MD documented in this encounter [facility] 10-01-2023 Procedure note Procedure(s): EXTERNAL HELP DESK COORDINATOR, CGM SYS Images from the original note were not included. documented in this encounter [facility] 09-13-2023 Miscellaneous Notes Requested Prescriptions Pending Prescriptions Disp Refills semaglutide (OZEMPIC) 1 mg/dose (4 mg/3 mL) pen 9 mL 3 Sig: Inject 1 mg subcutaneously one time a week. Please send to ann salvador documented in this encounter [facility] 07-25-2023 Miscellaneous Notes Requester: [email or web address] Last Visit in Endocrinology: Provider name: Xi Peña MD , Date 06/27/2023 Next Scheduled Appt in Endo: 10/01/2023 Last Refill: 03/27/2023 Number of Refills given: 3 Requested Prescriptions Pending Prescriptions Disp Refills insulin glargine-yfgn (SEMGLEE,INSULIN GLARG-YFGN,PEN) 100 unit/mL (3 mL) insulin pen 60 mL 3 Sig: Inject 32 Units subcutaneously two times a day. This is to REPLACE Basaglar until you get insurance. lisinopril-hydroCHLOROthiazide (ZESTORETIC) 20-25 mg per tablet 90 tablet 3 Sig: Take 1 tablet by mouth once daily. semaglutide (OZEMPIC) 1 mg/dose (4 mg/3 mL) pen 9 mL 1 Sig: Inject 1 mg subcutaneously one time a week. Please review and advise. Jackie Perales MA documented in this encounter [facility] 03-27-2023 Instructions Xi Peña MD - 03/27/2023 3:45 PM EDT - Continue Lantus (or Semglee) 36 units twice a day - Continue Novolog based on the sliding scale 3 times a day with meals If Blood Glucose (mg/dL) is <110 Give 0 units 111-150 Give 0 units 151-200 Give 2 unit 201-250 Give 4 units 251-300 Give 6 units 301-350 Give 8 units 351-400 Give 10 units - I prescribed Ozempic 0.25 mg once a week. If no side effects after 4 weeks, increase the dose to 0.5 mg once a week. If cost is an issue, let us know - I recommend using [employer]. Please call your insurance to start the process - Follow up with Sander in 3 months and with me in 6 months documented in this encounter [facility] 03-27-2023 History of Presen t illness Narrative ENDOCRINOLOGY CLINIC NOTE Mr. Limon is a 67 year old male with HTN and T2DM [facility]. Self-referred HPI He was diagnosed with diabetes > 10 years ago A1c: 9.2% on 03/26/2023 03/24/19 16:09 02/02/20 15:36 05/04/21 14:12 Hemoglobin A1C 8.1 (H) 7.4 (H) 8.9 (H) Current regimen: Metformin 1000 mg twice a day Lantus 36 units twice a day NovoLog was on 16 units with meals. However, he is now doing sliding scale medium dose with meals Home glucose monitoring: He checks 3 times before or after eating the range is mostly in the 100s with few readings in the 200s Hypoglycemia: One time 68 Diet: He eats 3 main meals Physical activity: Stationary bike and treadmill Complications: Retinopathy: last eye exam was in 01/2023 with no reported retinopathy Nephropathy: Normal GFR in 04/2021 Neuropathy: R foot numbness in the R foot after foot surgery CVS: lipid profile: 04/2021, LDL 52, TG 189 on atorvastatin 20 mg BP: 116/76 PAST MEDICAL HISTORY Diagnosis Date Arthritis of knee, left 07/03/2010 Arthritis of knee, right 07/03/2010 Diabetes (HCC) Hyperchloremia Hypertension PAST SURGICAL HISTORY Procedure Laterality Date KNEE BILATERAL OP SURGERY TONSILLECTOMY HX FAMILY HISTORY Problem Relation Age of Onset Alzheimer's Disease Mother No Ocular Disease Mother other (lung cancer) Mother Heart Attack Father No Ocular Disease Father Diabetes Sister Diabetes Brother Diabetes Sister Diabetes Sister Social History Tobacco Use Smoking status: Never Smokeless tobacco: Never Substance Use Topics Alcohol use: Not Currently Comment: rarely Drug use: No (Not in a hospital admission) Allergies As of Date: 03/27/2023 (No Known Allergies) Fully Assessed 2021 Current Outpatient Medications Medication Sig Dispense Refill acetaminophen (TYLENOL EXTRA STRENGTH) 500 mg tablet Take 2 tablets by mouth every 8 hours as needed. 50 tablet 0 aspirin, enteric coated (ASPIRIN, ENTERIC COATED) 81 mg EC tablet Take 81 mg by mouth once daily. atorvastatin (LIPITOR) 20 mg tablet TAKE 1 TABLET BY MOUTH EVERY DAY 90 tablet 4 Diabetes Pen [place] Use as directed once a day. 100 Device 5 DUEXIS 800-26.6 mg tab Take 1 tablet by mouth twice daily. insulin aspart U-100 (NOVOLOG FLEXPEN U-100 INSULIN) 100 unit/mL (3 mL) Inject 16 Units subcutaneously three times daily before meals. 43.2 mL 3 insulin glargine-yfgn (SEMGLEE,INSULIN GLARG-YFGN,PEN) 100 unit/mL (3 mL) insulin pen Inject 66 Units subcutaneously once daily. This is to REPLACE Basaglar until you get insurance. 7 Pen 5 insulin needles, DISPOSABLE, (BD INSULIN PEN NEEDLE UF) 31 gauge x 5/16 8 mm, 4 times daily 120 Each 3 lisinopril (ZESTRIL, PRINIVIL) 20 mg tablet Take 1 tablet by mouth once daily. 90 tablet 3 lisinopril-hydroCHLOROthiazide (PRINZIDE, ZESTORETIC) 20-25 mg per tablet TAKE 1 TABLET BY MOUTH EVERY DAY 90 tablet 3 MEDICATION, NON-DATABASE Neugenix Total T supplement metFORMIN (GLUCOPHAGE) 1,000 mg tablet TAKE 1 TABLET BY MOUTH TWICE A DAY WITH MEALS 180 tablet 4 Tadalafil (CIALIS) 10 mg tablet Take 1 tablet by mouth as needed. 1-2 hours before sexual intercourse. 12 tablet 1 Zinc 50 mg tab Take 50 mg by mouth once daily. No current facility-administered medications for this visit. COMPLETE REVIEW OF SYSTEMS: 10 point review of systems was negative other than what is mentioned in the H&P PHYSICAL EXAM: 03/27/23 1522 BP: 116/76 Pulse: 104 SpO2: 100% Weight: 114.4 kg (252 lb 3.2 oz) Height: 177.8 cm (5' 10) General: NAD, alert and cooperative HEENT: EOMI, no proptosis/stare. Neuro: Alert and oriented Psych: Normal affect Labs: As mentioned above Assessment and Recommendations: Mr. Limon is a pleasant 67-year-old man presented with his to establish management for T2DM. His diabetes is poorly controlled as evidenced by the A1c level. Our goal is to achieve an A1c at or below 7% to reduce the risks of diabetes related complications. His most recent glucose values are overall fairly controlled. We will continue with the same doses of insulin. We discussed the benefit of using a GLP-1 agonist but cost may be an issue. We will start Ozempic 0.25 mg once a week to be increased to 0.5 mg once a week after 4 weeks if he tolerates well. We discussed the benefits and possible side effects. The goal would be to eliminate NovoLog if possible. We also discussed the benefits of using a CGM and he is interested. He will call his insurance to start the process as a DME may be required. He will follow-up with my colleague nurse in 3 months and with me in 6 months Medical Decision Making: Problems: Low: Stable chronic illness Data: Unique test result(s) reviewed: 3+ Risk: Moderate: Drug management and Moderate risk from testing/treatment Medical Decision Making Level: 4 - Moderate This note was created using [employer] dictation software. You may find errors that were missed during proofreading. They are purely unintentional and if there are any concerns regarding this dictation, please do not hesitate to contact the dictating provider for clarification. Xi Peña MD documented in this encounter [facility] 10-08-2018 History of Past i llness Narrative Problem Noted Date Diagnosed Date Resolved Date Type 2 diabetes mellitus wit h microalbuminuria, with long-term current use of insulin 10/08/2018 06/27/2023 Medial meniscus tear 08/03/2010 019 Arthritis of knee, right 07/03/2010 Arthritis of knee, left 07/03/201009/16 documented as of this encounter (statuses as of 07/25/2023) [facility] History of Past illness Narrative* Problem Noted Date Diagnosed Date Resolved Date Type 2 diabetes mellitus wit h microalbuminuria, with long-term current use of insulin 10/08/2018 06/27/2023 Medial meniscus tear 08/03/2010 019 Arthritis of knee, right 07/03/2010 Arthritis of knee, left 07/03/201009/16 documented as of this encounter (statuses as of 09/16/2023) [facility] History of Past illness Narrative* Problem Noted Date Diagnosed Date Resolved Date Type 2 diabetes mellitus wit h microalbuminuria, with long-term current use of insulin 10/08/2018 06/27/2023 Medial meniscus tear 08/03/2010 019 Arthritis of knee, right 07/03/2010 Arthritis of knee, left 07/03/201009/16 documented as of this encounter (statuses as of 10/02/2023) [facility] History of Past illness Narrative* Problem Noted Date Diagnosed Date Resolved Date Medial meniscus tear 08/03/2010 019 Arthritis of knee, right 07/03/2010 Arthritis of knee, left 07/03/201009/16 documented as of this encounter (statuses as of 03/28/2023) [facility] Diagnosis Onset Date Resolution Status Encounter for screening for malignant neoplasm of colo n [facility] Work Phone: evaluation note* Diagnosis Poorly controlled type 2 diabetes mellitus (HCC)- Primary Type II or unspecified type diabetes mellitus without mention of complication, not stated as uncontrolled Hypertension, essential Unspecified essential hypertension Type 2 diabetes mellitus with microalbuminuria, with long-term current use of insulin ([facility]) Hyperglycemia Other abnormal glucose documented in this encounter [facility]* Diagnosis Type 2 diabetes mellitus without complication, with long-term current use of insulin (HCC) Hypertension, essential Unspecified essential hypertension [facility] Diagnosis Type 2 diabetes mellitus without complication, with long-term current use of insulin (HCC) [facility] Diagnosis Type 2 diabetes mellitus without complication, with long-term current use of insulin (HCC)- Primary documented in this encounter [facility] noteNo assessment information [facility]WF[facility] Work Phone: evalupvlja note* Diagnosis Type 2 diabetes mellitus without complication, with long-term current use of insulin (HCC) Type 2 diabetes mellitus with microalbuminuria, with long-term current use of insulin (HCC) documented in this encounter [facility] note* Diagnosis Type 2 diabetes mellitus without complication, with long-term current use of insulin (HCC)- Primary documented in this encounter [facility] note* Diagnosis Type 2 diabetes mellitus without complication, with long-term current use of insulin (HCC)- Primary Obesity, Class II, BMI 35-39.9 Obesity, unspecified Hypertension, essential Unspecified essential hypertension Hyperlipidemia, mixed Mixed hyperlipidemia documented in this encounter [facility] [facility] ([facility]arrative)No reason for referral information availableWFayette [facility] Work Phone: Instructions Instruction Description Start Date Patient advised to follow-up with Primary Care Physician for BMI management. Advance Directives No Advanced Directives Records Found Advance Directive Response Recorded Date/ Time Name of Medical Power of Agricultural Engineering Technician KING LIMON November 28, 2021 12:39pm Living Will Yes November 28, 2021 12:39pm Power of Agricultural Engineering Technician Yes November 28 12:39pm Advance Directive Response Recorded Date/ Time Living Will Yes September 18, 2024 9:04pm Do you have a Healthcare Power of Agricultural Engineering Technician? Yes September 18, 2024 9:04pm Name of Medical Power of Agricultural Engineering Technician September 18, 2024 9:04pm Assessments There may be information available, but it has not been provided by the sender. Review of System There may be information available, but it has not been provided by the sender. Family History There may be information available, but it has not been provided by the sender.No Family History Records FoundNo Family History Records FoundNo Family History Records FoundNo Family History Records FoundNo Family History Records FoundNo Family History Records Found Summary Purpose Chief Complaint and Reason for Visit Chief Complaint OA SCANNING ONLY Amb Documentation Reason for Visit Encounter for screen ing for malignant neoplasm of colon Chief Complaint Admit Date cramping all over September 18, 2024 9:03 pm Additional Source Comments (unrecognized sect ion and content) No Status Records FoundNo Status Records FoundNo Status Records FoundNo Status Records FoundNo Status Records FoundNo Status Records Found INFORMATION SOURCE (unrecogn ized section and content) DATE CREATED AUTHOR 12/09/2017 [facility] DATE CREATED AUTHOR AUTHOR'S ORGANIZ ATION 11/08/2020 [facility] DATE CREATED AUTHOR AUTHOR'S ORGANIZ ATION 01/26/2022 [facility] DATE CREATED AUTHOR AUTHOR'S ORGANIZ ATION 02/06/2022 [facility] DATE CREATED AUTHOR AUTHOR'S ORGANIZ ATION 09/25/2024 [facility] DATE CREATED AUTHOR AUTHOR'S ORGANIZ ATION 02/03/2025 [facility] Care Teams (unrecognized sec tion and content) Technical Developer Relationship Specialty Start Date End Date Raudel Su MD PCP - General 03/15/16 Technical Developer Relationship Specialty Start Date End Date Raudel Su MD [address] [place] [address] PCP - General Sports Medicine 07/13/14 Technical Developer Relationship Specialty Start Date End Date Raudel Su MD [address] [place] [address] PCP - General Sports Medicine 07/13/14 Technical Developer Relationship Specialty Start Date End Date Raudel Su MD [address] [place] [address] PCP - General Sports Medicine 07/13/14 Technical Developer Relationship Specialty Start Date End Date Raudel Su MD [address] [place] [address] PCP - General Sports Medicine 07/13/14 Technical Developer Relationship Specialty Start Date End Date Raudel Su MD [address] [place] [address] PCP - General Sports Medicine 07/13/14 Team Status: Active Member Role Status Dates No Primary Care Physician Primary Care Provider Active Team Status: Inactive Member Role Status Dates No Primary Care Physician Primary Care Provider Active Start: September 18, 2024 End: September 18, 2024 Dr. Chaitanya Tang MD Emergency Provider Active Start: September 18, 2024 End: September 18, 2024 Technical Developer Relationship Specialty Start Date End Date Raudel Su MD [address] [place] [address] PCP - General Sports Medicine 07/13/14 Gillian Mcnally PA-C [address] [place] [phone] [employer] Family [facility] 05/24/24 Technical Developer Relationship Specialty Start Date End Date Raudel Su MD [address] [place] [address] PCP - General Sports Medicine 07/13/14 Gillian Mcnally PA-C [address] [place] [id number] As[employer]er [employer] Family [facility] 05/24/24 Technical Developer Relationship Specialty Start Date End Date Raudel Su MD [address] [place] [address] PCP - General Sports Medicine 07/13/14 Gillian Mcnally PA-C [address] [place] [id number] As[employer]er [employer] [facility] 05/24/24 Technical Developer Relationship Specialty Start Date End Date Raudel Su MD [address] [place] [address] PCP - General Sports Medicine 07/13/14 Gillian Mcnally PA-C [address] [place] [phone] [employer] [facility] 05/24/24 Technical Developer Relationship Specialty Start Date End Date Raudel Su MD [address] [place] [address] PCP - General Sports Medicine 07/13/14 Gillian Mcnally PA-C [address] [place] [id number] [employer] [facility] 05/24/24 Technical Developer Relationship Specialty Start Date End Date Raudel Su MD [address] [place] [address] PCP - General Sports Medicine 07/13/14 Gillian Mcnally PA-C [address] [place] [address] As[employer] [facility] 05/24/24 Technical Developer Relationship Specialty Start Date End Date Raudel Su MD [address] [place] [address] PCP - General Sports Medicine 07/13/14 Gillian Mcnally PA-C [address] [place] [address] [employer] [facility] 05/24/24 Technical Developer Relationship Specialty Start Date End Date Raudel Su MD [address] [place] [address] PCP - General Sports Medicine 07/13/14 Gillian Mcnally PA-C [address] [place] [id number] As[employer] [facility] 05/24/24 Technical Developer Relationship Specialty Start Date End Date Raudel Su MD [address] [place] [address] PCP - General Sports Medicine 07/13/14 Gillian Mcnally PA-C [address] [place] [id number] As[employer]er Mus[employer] [facility] 05/24/24 Technical Developer Relationship Specialty Start Date End Date Raudel Su MD [address] [place] [id number] PCP - General Sports Medicine 07/13/14 Gillian Mcnally PA-C [address] [place] [phone] Assembler Musical [employer] [facility] 05/24/24 Technical Developer Relationship Specialty Start Date End Date Raudel Su MD [address] [place] [id number] PCP - General Sports Medicine 07/13/14 Gillian Mcnally PA-C [address] [place] [id number] Assembler Musical [employer] [facility] 05/24/24 Source Comments (unrecognize d section and content) In the event this informatio n is protected by the Federal Confidentiality of Alcohol and Drug Abuse Patient Records regulations: The Federal rules restrict any use of the information to criminally investigate or prosecute any alcohol or drug abuse patient.[facility] the event this information is protected by the Federal Confidentiality of Alcohol and Drug Abuse Patient Records regulations: The Federal rules restrict any use of the information to criminally investigate or prosecute any alcohol or drug abuse patient.[facility] the event this information is protected by the Federal Confidentiality of Alcohol and Drug Abuse Patient Records regulations: The Federal rules restrict any use of the information to criminally investigate or prosecute any alcohol or drug abuse patient.[facility] the event this information is protected by the Federal Confidentiality of Alcohol and Drug Abuse Patient Records regulations: The Federal rules restrict any use of the information to criminally investigate or prosecute any alcohol or drug abuse patient.[facility] the event this information is protected by the Federal Confidentiality of Alcohol and Drug Abuse Patient Records regulations: The Federal rules restrict any use of the information to criminally investigate or prosecute any alcohol or drug abuse patient.[facility] the event this information is protected by the Federal Confidentiality of Alcohol and Drug Abuse Patient Records regulations: The Federal rules restrict any use of the information to criminally investigate or prosecute any alcohol or drug abuse patient.[facility] the event this information is protected by the Federal Confidentiality of Alcohol and Drug Abuse Patient Records regulations: The Federal rules restrict any use of the information to criminally investigate or prosecute any alcohol or drug abuse patient.[facility] the event this information is protected by the Federal Confidentiality of Alcohol and Drug Abuse Patient Records regulations: The Federal rules restrict any use of the information to criminally investigate or prosecute any alcohol or drug abuse patient.[facility] the event this information is protected by the Federal Confidentiality of Alcohol and Drug Abuse Patient Records regulations: The Federal rules restrict any use of the information to criminally investigate or prosecute any alcohol or drug abuse patient.[facility] the event this information is protected by the Federal Confidentiality of Alcohol and Drug Abuse Patient Records regulations: The Federal rules restrict any use of the information to criminally investigate or prosecute any alcohol or drug abuse patient.[facility] the event this information is protected by the Federal Confidentiality of Alcohol and Drug Abuse Patient Records regulations: The Federal rules restrict any use of the information to criminally investigate or prosecute any alcohol or drug abuse patient.[facility] the event this information is protected by the Federal Confidentiality of Alcohol and Drug Abuse Patient Records regulations: The Federal rules restrict any use of the information to criminally investigate or prosecute any alcohol or drug abuse patient.[facility] the event this information is protected by the Federal Confidentiality of Alcohol and Drug Abuse Patient Records regulations: The Federal rules restrict any use of the information to criminally investigate or prosecute any alcohol or drug abuse patient.[facility] the event this information is protected by the Federal Confidentiality of Alcohol and Drug Abuse Patient Records regulations: The Federal rules restrict any use of the information to criminally investigate or prosecute any alcohol or drug abuse patient.[facility] the event this information is protected by the Federal Confidentiality of Alcohol and Drug Abuse Patient Records regulations: The Federal rules restrict any use of the information to criminally investigate or prosecute any alcohol or drug abuse patient.[facility] the event this information is protected by the Federal Confidentiality of Alcohol and Drug Abuse Patient Records regulations: The Federal rules restrict any use of the information to criminally investigate or prosecute any alcohol or drug abuse patient.[facility] the event this information is protected by the Federal Confidentiality of Alcohol and Drug Abuse Patient Records regulations: The Federal rules restrict any use of the information to criminally investigate or prosecute any alcohol or drug abuse patient.[facility] Reason for Visit (unrecogniz ed section and content) Reason Comments Consult Reason Onset Date Comments Refill Request 07/25/2023 Reason Onset Date Comments Refill Request 09/13/2023 Reason Comments Follow Up Established Patient Reason Onset Date Comments Refill Request 12/02/2023 Reason Onset Date Comments [facility] Change Request Form 03/19/2024 Ariel estyle Hi 3 sensor Reason Onset Date Comments Refill Request 09/16/2024 Reason Comments [facility] [place] Follow Up Call Reason Onset Date Comments Refill Request 09/28/2024 Reason Comments Refill Request Reason Comments Approval [employer] Reason Comments Follow Up Insulin Dependent Diabetes Mellitus Reason Comments Medication Problem Reason Comments [facility] Update about the [facility] (unrecognized section and content) Goals may be documented in a n alternate section FOR RECORDS PERTAINING TO PATIENTS WHO ARE OR HAVE BEEN ENROLLED IN A CHEMICAL DEPENDENCY/SUBSTANCEABUSE PROGRAM, SOME INFORMATION MAY BE OMITTED. This clinical summary was aggregated from multiple sources. Caution should be exercised in using it in the provision of clinical care. This summary normalizes information from multiple sources, and as a consequence, information in this document may materially change the coding, format and clinical context of patient data. In addition, data may be omitted in some cases. CLINICAL DECISIONS SHOULD BE BASED ON THE PRIMARY CLINICAL RECORDS. [employer] provides no warranty or guarantee of the accuracy or completeness of information in this document.
[2025-02-15 10:07] VITALS: PULSE 75; RESP 16
[2025-02-15 10:27] VITALS: O2SAT 97
[2025-02-15 10:35] LABS: Hematocrit 36.3 % (40-54); Hemoglobin 12.6 g/dL (13.0-16.5); Immature Granulocytes Count 0.010 X10^3/uL (0.0-0.0); Mean Corp Hgb Conc 34.7 g/dL (32-36); Mean Corpuscular Volume 92.1 fL (80-94); Mean Platelet Vol. 9.2 fl (6.2-12.0); NRBC Flagged by Analyzer 0 % (0-5); Platelet Count 271 K/mm3 (150-450); RBC Distribution Width CV 12.4 % (11.6-14.6); RBC Distribution Width SD 41.3 fl (35.1-43.9); Red Blood Count 3.94 M/mm3 (4.6-6.2); White Blood Count 4.2 K/mm3 (4.4-11.0)
[2025-02-15 11:07] LABS: Anion Gap 12 (5-15); BUN 11 mg/dL (4-19); BUN/Creat Ratio 14.8 RATIO (10-20); Calcium,Total 9.2 mg/dL (7.6-11.0); Carbon Dioxide 21.7 mmol/L (21.0-32.0); Chloride 100 mmol/L (98-108); Estimated Creatinine Clearance 112.54 ml/min (50-250); Glucose 176 mg/dL (70-99); Potassium 4.0 mmol/L (3.3-5.1)
[2025-02-15 11:20] VITALS: BP 127/88; PULSE 74; RESP 18; O2SAT 100
== END 2025-02-15 12:19 | disposition home or self-care (01) ==
PROVIDERS: Emergency Provider Emergency Medicine; Visit Provider Emergency Medicine
DX: J06.9 Acute upper respiratory infection, unspecified (principal); E11.9 Type 2 diabetes mellitus without complications; Z79.4 Long term (current) use of insulin; I10 Essential (primary) hypertension; Z79.84 Long term (current) use of oral hypoglycemic drugs; Z79.899 Other long term (current) drug therapy
CPT/HCPCS: 71046; 80048; 85025; 87631; 93005; 94640; 99284; A4216